=== PATIENT | female | born 1975 | race Caucasian/White ===

== ENCOUNTER → 2017-07-09 08:27 | Outpatient (CLI) | payer BC, SELFPAY ==
[2017-07-09 10:23] LABS: Vitamin D,25 Hydroxy 37.6 ng/mL (29.95-100.01)
== END ==
PROVIDERS: Family Provider Family Medicine; PCP Family Medicine; Visit Provider Internal Medicine Endocrinology, Diabetes & Metabolism
DX: E55.9 Vitamin D deficiency, unspecified (principal)
CPT/HCPCS: 36415; 82306

== ENCOUNTER → 2017-09-08 08:14 | Outpatient (CLI) | payer BC, SELFPAY ==
[2017-09-08 10:38] LABS: ALB/GLOB Ratio 0.8 RATIO (0.9-2.4); AST(SGOT) 17 U/L (15-37); Alanine Aminotransfer ALT/SGPT 24 U/L (13-56); Albumin, Serum 3.3 g/dL (3.2-5.0); Alkaline Phosphatase 115 U/L (45-117); Anion Gap 8 (5-15); BUN 10 mg/dL (7-18); BUN/Creat Ratio 12.5 RATIO (10-20); Calcium,Total 8.7 mg/dL (8.5-10.1); Chloride 110 mmol/L (98-107); EST Glomerular Filtration Rate 84 mL/min (>60); Est Glom Filt Rate - Afr Amer 102 mL/min (>60); Globulin 4.1 g/dL (2.2-4.2); Glucose 122 mg/dL (74-106); Potassium 3.7 mmol/L (3.5-5.1); Protein, Total 7.4 g/dL (6.4-8.2); Sodium Level 141 mmol/L (136-145); Thyroid Stim Hormone (TSH) 1.37 uIU/mL (0.358-3.74)
== END ==
PROVIDERS: Family Provider Family Medicine; PCP Family Medicine; Visit Provider Internal Medicine Endocrinology, Diabetes & Metabolism
DX: E03.8 Other specified hypothyroidism (principal)
CPT/HCPCS: 36415; 80053; 84443

== ENCOUNTER → 2018-02-10 15:49 | Outpatient (CLI) | payer BC, SELFPAY ==
[2018-02-15 11:02] LABS: HPV Reflexed? NOT INDICATED
== END ==
PROVIDERS: Visit Provider Obstetrics & Gynecology
DX: Z12.4 Encounter for screening for malignant neoplasm of cervix (principal)
CPT/HCPCS: 88175; G0145

== ENCOUNTER → 2018-03-30 08:09 | Outpatient (CLI) | payer BC, SELFPAY ==
[2018-03-30 11:23] LABS: ALB/GLOB Ratio 0.8 RATIO (0.9-2.4); AST(SGOT) 18 U/L (15-37); Alanine Aminotransfer ALT/SGPT 32 U/L (13-56); Albumin, Serum 3.3 g/dL (3.2-5.0); Alkaline Phosphatase 114 U/L (45-117); Anion Gap 8 (5-15); BUN 11 mg/dL (7-18); BUN/Creat Ratio 14.1 RATIO (10-20); Calcium,Total 8.4 mg/dL (8.5-10.1); Chloride 108 mmol/L (98-107); Cholesterol 188 mg/dL (200); Creatinine, Serum 0.78 mg/dL (0.55-1.02); EST Glomerular Filtration Rate 86 mL/min (>60); Est Glom Filt Rate - Afr Amer 105 mL/min (>60); Globulin 4.1 g/dL (2.2-4.2); Glucose 85 mg/dL (74-106); High Density Lipoprotein 37 mg/dL; Potassium 3.7 mmol/L (3.5-5.1); Protein, Total 7.4 g/dL (6.4-8.2); Sodium Level 143 mmol/L (136-145); Thyroid Stim Hormone (TSH) 3.56 uIU/mL (0.358-3.74); Triglycerides 143 mg/dL; Very Low Density Lipoprotein 29 mg/dL (5-40)
--- OUTSIDE RECORDS SUMMARY | 2018-05-16 03:18 | XMS RPT_ITS ---
:1975 Author Organization [facility] Care Team Providers Name Role Phone Sushila Barajas Attending Unavailable Korableva, Sushila Referring Unavailable Ranney, Christopher Primary Care Unavailable Mya Jones Attending Unavailable Mya Jones Referring Unavailable Korableva, Sushila Attending Unavailable Ranney, Christopher Primary Care Unavailable Korableva, Sushila Attending Unavailable Korableva, Sushila Referring Unavailable Ranney, Christopher Primary Care Unavailable Mya Jones Attending Unavailable PROBLEMS PROBLEMS DATE TYPE CONDITION / CODE ATTENDING STATUS SOURCE 03/30/2018 Unknown E03.8 - Other Korableva, Active [place] specified [facility] hypothyroidism / Hospital E03.8(ICD-10) Repository 03/30/2018 Unknown E78.2 - Mixed Korableva, Active [place] hyperlipidemia / [facility] E78.2(ICD-10) Hospital Repository 02/15/2018 Unknown Z12.4 - Encounter Mya Jones Active [place] for screening for [facility] of cervix / Repository Z12.4(ICD-10) 07/09/2017 Unknown E55.9 - Vitamin D Korableva, Active [place] deficiency, [facility] unspecified / Hospital E55.9(ICD-10) Repository PROCEDURES PROCEDURES No Procedure Records FoundRESULTS RESULTS SCREENING MAMM (CAD), Observed: 04/27/2018 Status: F Source: MACHIAS BIL 8:10 AM REPOSITORY [facility] Imaging Services [address] [place] [address] SCREENING MAMM (CAD), BILAT MR#: [id number] Acct: [id number] Name: HUMPHREYMary GraceHALIE L Rep #: [id number] : 1975 F 42 From: Joe Dorsye MD PCP: Care Physician, No Primary Status: REG CLI Study: SCREENING MAMM (CAD), BILAT Date of Exam: 04/27/18 Exam# [id number] Ordering Dr: Mya Jones MD MAMMOGRAPHY - BILATERAL SCREENING REASON FOR EXAM: Female, 42 years old. Routine annual screening examination. PERTINENT HISTORY: Non-contributory. TECHNIQUE: Digital bilateral breast stephanie (3D mammographic acquisition) in the CC and MLO projections. 2-D mediolateral oblique (MLO) and craniocaudad (CC) views of both breasts were obtained. CAD: Full Field Digital Mammography with Computer Added Detection was performed. COMPARISON: Comparison is made with prior study dated March 02, 2017. FINDINGS: Breast Composition: The breasts are heterogeneously dense, which may obscure small masses. There are no dominant masses or suspicious calcifications. No other significant abnormalities are identified. There has been no significant change since the prior study. BI/SCREENING MAMM (CAD), BILAT IMPRESSION: Stable bilateral screening mammogram. Yearly follow-up mammogram recommended. (A) ASSESSMENT CATEGORY: BIRADS Category 1: Negative. A letter regarding these results will be sent to the patient by the facility within 30 days. Approximately 10% of breast cancers are not detected by mammography. A normal mammogram should not delay biopsy of a clinically suspicious abnormality. [id number] Electronically Signed: Joe Dorsey MD at 9:47 EST Tel [phone], Service support , CC: No Primary Care Physician; Mya Jones MD Sport Psychologist: Signed COMPREHENSIVE METABOLIC Collected: 03/30/2018 Status: F Source: MILLIE JADEN 8:16 AM REPOSITORY TYPE CODE TESTS RESULT OUT OF RANGE REFERENCE UNITS LAB L501.0100 74-106 mg/dL Normal GLU 85 Result Comment: Please note revised GLUCOSE reference range effective 2017. LAB L501.1000 7-18 mg/dL Normal BUN 11 LAB L501.1100 0.55-1.02 mg/dL Normal CREAT,SERUM 0.78 Result Comment: The validity of the calculated GFR AND GFRAA in patients over 70 years has not been determined. Clinical correlation is essential. LAB L501.1110 >60 mL/min Normal EST GFR 86 Result Comment: Non- GFR Calc LAB L501.1115 >60 mL/min Normal EST GFR - AA 105 Result Comment: GFR Calc LAB L501.1300 10-20 RATIO Normal BUN/CRE 14.1 LAB L501.1500 6.4-8.2 g/dL T Normal PROT 7.4 LAB L501.1800 3.2-5.0 g/dL Normal ALB 3.3 LAB L501.1950 2.2-4.2 g/dL Normal GLOB 4.1 LAB L501.2000 0.9-2.4 RATIO Low A/G 0.8 LAB L501.2200 8.5-10.1 mg/dL Low CA 8.4 LAB L501.4100 15-37 U/L Normal AST 18 LAB L501.4305 45-117 U/L Normal ALK P 114 LAB L501.4405 13-56 U/L Normal ALT 32 LAB L501.4600 0.20-1.00 mg/dL T Normal BILI 0.30 LAB L501.5300 136-145 mmol/L NA Normal 143 LAB L501.5600 3.5-5.1 mmol/L K Normal 3.7 LAB L501.5900 98-107 mmol/L High CL 108 LAB L501.6100 21.0-32.0 mmol/L Normal CO2 27.0 LAB L501.6200 5-15 Normal GAP 8 Performed By: #### L500.4050, L500.4100, L501.9520 #### [facility] [address] [place], [place], [id number] LIPID PROFILE Collected: 03/30/2018 Status: F Source: MACHIAS 8:16 AM REPOSITORY TYPE CODE TESTS RESULT OUT OF RANGE REFERENCE UNITS LAB L501.4900 200 mg/dL Normal CHOL 188 Result Comment: <200 mg/dL Desirable 200-240 mg/dL Borderline >240 mg/dL High Risk LAB L501.5000 mg/dL Normal TRIG 143 Result Comment: The drugs N-Acetylcysteine and Metamizole may falsely depress this assay. Serum Triglycerides Reference Interval Normal <150 mg/dL Borderline high 150 - 199 mg/dL High 200 - 499 mg/dL Very High > or = 500 mg/dL LAB L501.6400 mg/dL Low HDL 37 Result Comment: The drugs N-Acetylcysteine and Metamizole may falsely depress this assay. Reference Range HDL <40 mg/dL Low HDL Cholesterol HDL >or= 60 mg/dL High HDL Cholesterol LAB L501.6500 0-130 mg/dL Normal LDL 122 LAB L501.6600 5-40 mg/dL Normal VLDL 29 Performed By: #### L500.4050, L500.4100, L501.9520 #### [facility] [address] [place], [address] THYROID STIM HORMONE Collected: 03/30/2018 Status: F Source: MILLIE (TSH) 8:16 AM REPOSITORY TYPE CODE TESTS RESULT OUT OF RANGE REFERENCE UNITS LAB L501.9520 0.358-3.74 uIU/mL Normal TSH 3.56 Performed By: #### L500.4050, L500.4100, L501.9520 #### [facility] [address] [facility] [place], [address] PAP I-G W/RFX HRHPV Collected: 02/10/2018 Status: F Source: MILLIE 11:30 AM REPOSITORY Order Comment: CYTOLOGY INFORMATION: - CLINICAL INFORMATION: - DATE LMP/MENOPAUSE: 01/18/18 LMP - COLLECTION VIAL: Thin Prep Vial - DIALYSIS CHIEF EQUIPMENT TECHNICIAN SOURCE: CERVICAL/ENDOCERVICAL - COLLECTION TECHNIQUE: BRUSH/SPATULA Specimen Comment: [id number] Specimen Comment: Source.............Cervix;Endocervix Specimen Comment: LMP / Prev Treat...[id number] Specimen Comment: No. of containers..01 ThinPrep Vial TYPE CODE TESTS RESULT OUT OF RANGE REFERENCE UNITS LAB L7400.0800 . Normal DIAGN Comment Result Comment: NEGATIVE FOR INTRAEPITHELIAL LESION AND MALIGNANCY. LAB L7400.0900 . Normal ADEQ Comment Result Comment: Satisfactory for evaluation. Endocervical and/or squamous metaplastic cells (endocervical component) are present. LAB L7400.1400 . Normal PERFORM Comment Result Comment: Jyothi Amador, Musical Instrument Mechanic (ASCP) LAB L7400.2575 . Normal TEST METHOD Comment Result Comment: This liquid based ThinPrep(R) pap test was screened with the use of an image guided system. LAB L7400.2600 . Normal . COMM LAB L7400.2700 . Normal PAPSMR Comment Result Comment: The Pap smear is a screening test designed to aid in the detection of premalignant and malignant conditions of the uterine cervix. It is not a diagnostic procedure and should not be used as the sole means of detecting cervical cancer. Both false-positive and false-negative reports do occur. LAB L7400.2800 . Normal HPV RFLX Comment Result Comment: The HPV DNA reflex criteria were not met with this specimen result therefore, no HPV testing was performed. Performed at: - [facility] [place], [place] [id number] [employer]: Ashley Ashraf MD, Phone: [phone] Performed By: #### L7400.0350 #### [facility] (refer to report for specific site) refer to report for address and phone number COMPREHENSIVE METABOLIC Collected: 09/08/2017 Status: F Source: MILLIE STANLEY 8:19 AM REPOSITORY TYPE CODE TESTS RESULT OUT OF RANGE REFERENCE UNITS LAB L501.0100 74-106 mg/dL High GLU 122 Result Comment: Fasting Glucose result from 100 to 125 mg/dL suggests IMPAIRED HOMEOSTASIS per A.D.A. criteria. Please note revised GLUCOSE reference range effective 2017. LAB L501.1000 7-18 mg/dL Normal BUN 10 LAB L501.1100 0.55-1.02 mg/dL Normal CREAT,SERUM 0.80 Result Comment: The validity of the calculated GFR AND GFRAA in patients over 70 years has not been determined. Clinical correlation is essential. LAB L501.1110 >60 mL/min Normal EST GFR 84 Result Comment: Non- GFR Calc LAB L501.1115 >60 mL/min Normal EST GFR - AA 102 Result Comment: GFR Calc LAB L501.1300 10-20 RATIO Normal BUN/CRE 12.5 LAB L501.1500 6.4-8.2 g/dL T Normal PROT 7.4 LAB L501.1800 3.2-5.0 g/dL Normal ALB 3.3 LAB L501.1950 2.2-4.2 g/dL Normal GLOB 4.1 LAB L501.2000 0.9-2.4 RATIO Low A/G 0.8 LAB L501.2200 8.5-10.1 mg/dL CA Normal 8.7 LAB L501.4100 15-37 U/L Normal AST 17 LAB L501.4305 45-117 U/L Normal ALK P 115 LAB L501.4405 13-56 U/L Normal ALT 24 LAB L501.4600 0.20-1.00 mg/dL T Normal BILI 0.50 LAB L501.5300 136-145 mmol/L NA Normal 141 LAB L501.5600 3.5-5.1 mmol/L K Normal 3.7 LAB L501.5900 98-107 mmol/L High CL 110 LAB L501.6100 21.0-32.0 mmol/L Normal CO2 23.0 LAB L501.6200 5-15 Normal GAP 8 Performed By: #### L500.4050, L501.9520 #### [facility] [address] [place], [place], [address] THYROID STIM HORMONE Collected: 09/08/2017 Status: F Source: MILLIE (TSH) 8:19 AM REPOSITORY TYPE CODE TESTS RESULT OUT OF RANGE REFERENCE UNITS LAB L501.9520 0.358-3.74 uIU/mL Normal TSH 1.37 Performed By: #### L500.4050, L501.9520 #### [facility] [address] [place], [place], [address] VITAMIN D,25 HYDROXY Collected: 07/09/2017 Status: F Source: MILLIE 8:33 AM REPOSITORY TYPE CODE TESTS RESULT OUT OF RANGE REFERENCE UNITS LAB L506.1000 29.95-100.01 ng/mL Normal Vitamin D 37.6 25-OH Result Comment: Vitamin D 25(OH) Status Range Deficiency <20 ng/mL (50nmol/L) Insuffciency 20 - 30 ng/mL (50 - 75 nmol/L) Sufficiency 30 - 100 ng/mL (75 - 250 nmol/L) Toxicity >100 ng/mL (>250 nmol/L) Performed By: #### L506.1000 #### [facility] [address] [place], [place], [address] ALLERGIES ALLERGIES DATE TYPE / CODE NAME / CODE REACTION SEVERITY SOURCE 06/25/2015 Drug nickel/F0060 Unknown Unknown [place] [facility] Allergy/4160 08845([facility] [address](SNOMED ) Repository CT) ENCOUNTERS ENCOUNTERS ADMIT/DISCHARGE ACCOUNT ADMITTING ENCOUNTER LOCATION SOURCE NUMBER CLASS 04/27/2018 [id number] Ambulatory [place] 7 [facility] ing:OPBI Repository 03/30/2018 [id number] Ambulatory [place] 7 [facility] ing:MTLAB Repository 02/10/2018 [id number] Ambulatory [place] 9 [facility] ing:LABSPEC Repository 09/08/2017 [id number] Ambulatory [place]ie 5 [facility] ing:MTLAB Repository 07/09/2017 [id number] Ambulatory [place]ie 6 [facility] ing:MTLAB Repository PAYERS PAYERS ENCOUNTER GUARANTOR PAYER SUBSCRIBER SOURCE 04/27/2018 HALIE L Primary HALIE L [place] [id number] HEYL Insurance:ANTHEMPolic [place]: [place] Number: [id number] Hospital [address]Isp: 330 [id number] Repository [phone] () Date:[id number] [address] [place] [address] 24[address]LC: 04/27/2018 Secondary NOT GIVENUNK [place] Insurance:SELF PAY [facility] Number: Effective Repository Date:2018-02-11 03/30/2018 HALIE L Primary HALIE L [place] [id number] HEYL Insurance:ANTHEMPolic CARMONYDOB: [place] Number: [id number] Hospital [id number]: 330 [id number] Repository [phone] () Date:[id number] [address] [place] [address]94[address]SK: 03/30/2018 Secondary NOT GIVENUNK [place] Insurance:SELF PAY [facility] Number: Effective Repository Date:2018-03-30 02/10/2018 HALIE L Primary HALIE L [place] [id number] HEYL Insurance:ANTHEMPolic CARMONYDOB: [facility] romain [place] y Number: [id number] Hospital [address]Frb: (330) [id number] Repository [phone] () Date:[id number] [address] [address]WP: 02/10/2018 Secondary NOT GIVENUNK [place] Insurance:SELF PAY [facility] Number: Effective Repository Date:2018-02-10 09/08/2017 Halie L Primary Halie L Millie [id number] HEYL Insurance:ANTHEMPolic CarmonyDOB: [facility] romain [place] y Number: [id number] Hospital [address]Ptf: [id number] Repository [phone] Date:[id number] [address] () [address], [place] [address]SQ: 09/08/2017 Secondary NOT GIVENUNK [place] Insurance:SELF PAY [facility] Number: Effective Repository Date:2017-09-08 07/09/2017 Halie L Primary Halie L [place]ie [id number] HEYL Insurance:ANTHEMPolic CarmonyDOB: [facility] romain [place] y Number: [id number] Hospital [address]Bzj: [id number] Repository [phone] Date:[id number] [address] [address], [place] [address]YZ: 07/09/2017 Secondary NOT GIVENUNK [place] Insurance:SELF PAY [facility] Number: Effective Repository Date:2017-07-09
== END ==
PROVIDERS: Family Provider Family Medicine; PCP Family Medicine; Referring Provider Internal Medicine Endocrinology, Diabetes & Metabolism; Visit Provider Internal Medicine Endocrinology, Diabetes & Metabolism
DX: E03.8 Other specified hypothyroidism (principal); E78.2 Mixed hyperlipidemia
CPT/HCPCS: 36415; 80053; 80061; 84443

== ENCOUNTER → 2018-04-27 08:04 | Outpatient (CLI) | payer BC, SELFPAY ==
--- NOTE | 2018-04-27 08:09 | BI_ITS ---
MAMMOGRAPHY - BILATERAL SCREENING REASON FOR EXAM: Female, 42 years old. Routine annual screening examination. PERTINENT HISTORY: Non-contributory. TECHNIQUE: Digital bilateral breast stephanie (3D mammographic acquisition) in the CC and MLO projections. 2-D mediolateral oblique (MLO) and craniocaudad (CC) views of both breasts were obtained. CAD: Full Field Digital Mammography with Computer Added Detection was performed. COMPARISON: Comparison is made with prior study dated March 02, 2017. FINDINGS: Breast Composition: The breasts are heterogeneously dense, which may obscure small masses. There are no dominant masses or suspicious calcifications. No other significant abnormalities are identified. There has been no significant change since the prior study. BI/SCREENING MAMM (CAD), BILAT IMPRESSION: Stable bilateral screening mammogram. Yearly follow-up mammogram recommended. (A) ASSESSMENT CATEGORY: BIRADS Category 1: Negative. A letter regarding these results will be sent to the patient by the facility within 30 days. Approximately 10% of breast cancers are not detected by mammography. A normal mammogram should not delay biopsy of a clinically suspicious abnormality. [id number] Electronically Signed: Joe Dorsey MD at 9:47 EST Tel [phone], Service support ,
== END ==
PROVIDERS: Referring Provider Obstetrics & Gynecology; Visit Provider Obstetrics & Gynecology
DX: Z12.31 Encounter for screening mammogram for malignant neoplasm of breast (principal)
CPT/HCPCS: 77063; 77067

== ENCOUNTER → 2018-07-12 16:09 | Outpatient (CLI) | payer BC, SELFPAY ==
[2018-07-12 18:20] LABS: Anion Gap 6 (5-15); BUN 11 mg/dL (7-18); BUN/Creat Ratio 12.8 RATIO (10-20); Calcium,Total 8.6 mg/dL (8.5-10.1); Chloride 107 mmol/L (98-107); Creatinine, Serum 0.86 mg/dL (0.55-1.02); EST Glomerular Filtration Rate 77 mL/min (>60); Est Glom Filt Rate - Afr Amer 93 mL/min (>60); Glucose 102 mg/dL (74-106); Potassium 3.5 mmol/L (3.5-5.1); Sodium Level 140 mmol/L (136-145); Thyroid Stim Hormone (TSH) 3.62 uIU/mL (0.358-3.74)
[2018-07-14 16:09] LABS: Thyroid Peroxidase AB 19 IU/mL (0-34)
[2018-07-15 15:11] LABS: Thyroglobulin Antibody < 1.0 IU/mL (0.0-0.9)
== END ==
PROVIDERS: Family Provider Family Medicine; PCP Family Medicine; Referring Provider Internal Medicine Endocrinology, Diabetes & Metabolism; Visit Provider Internal Medicine Endocrinology, Diabetes & Metabolism
DX: E03.8 Other specified hypothyroidism (principal)
CPT/HCPCS: 36415; 80048; 84443; 86376; 86800

== ENCOUNTER → 2018-09-20 07:20 | Outpatient (CLI) | payer BC, SELFPAY ==
[2018-09-20 10:24] LABS: Thyroid Stim Hormone (TSH) 2.87 uIU/mL (0.358-3.74)
== END ==
PROVIDERS: Family Provider Family Medicine; PCP Family Medicine; Referring Provider Internal Medicine Endocrinology, Diabetes & Metabolism; Visit Provider Internal Medicine Endocrinology, Diabetes & Metabolism
DX: E03.8 Other specified hypothyroidism (principal)
CPT/HCPCS: 36415; 84443

== ENCOUNTER → 2019-01-11 07:57 | Outpatient (CLI) | payer BC, SELFPAY ==
[2019-01-11 10:28] LABS: ALB/GLOB Ratio 0.8 RATIO (0.9-2.4); AST(SGOT) 18 U/L (15-37); Alanine Aminotransfer ALT/SGPT 29 U/L (13-56); Albumin, Serum 3.2 g/dL (3.2-5.0); Alkaline Phosphatase 124 U/L (45-117); Anion Gap 4 (5-15); BUN 10 mg/dL (7-18); BUN/Creat Ratio 12.9 RATIO (10-20); Calcium,Total 8.9 mg/dL (8.5-10.1); Chloride 107 mmol/L (98-107); Creatinine, Serum 0.78 mg/dL (0.55-1.02); EST Glomerular Filtration Rate 86 mL/min (>60); Est Glom Filt Rate - Afr Amer 104 mL/min (>60); Glucose 107 mg/dL (74-106); Potassium 3.7 mmol/L (3.5-5.1); Protein, Total 7.2 g/dL (6.4-8.2); Sodium Level 139 mmol/L (136-145); Thyroid Stim Hormone (TSH) 3.33 uIU/mL (0.358-3.74)
== END ==
PROVIDERS: Family Provider Family Medicine; PCP Family Medicine; Referring Provider Internal Medicine Endocrinology, Diabetes & Metabolism; Visit Provider Internal Medicine Endocrinology, Diabetes & Metabolism
DX: E03.8 Other specified hypothyroidism (principal)
CPT/HCPCS: 36415; 80053; 84443

== ENCOUNTER → 2019-03-10 07:54 | Outpatient (CLI) | payer BC, SELFPAY ==
[2019-03-10 10:40] LABS: Thyroid Stim Hormone (TSH) 2.83 uIU/mL (0.358-3.74)
== END ==
PROVIDERS: Family Provider Family Medicine; PCP Family Medicine; Referring Provider Internal Medicine Endocrinology, Diabetes & Metabolism; Visit Provider Internal Medicine Endocrinology, Diabetes & Metabolism
DX: E03.8 Other specified hypothyroidism (principal)
CPT/HCPCS: 36415; 84443

== ENCOUNTER → 2019-05-01 07:39 | Outpatient (CLI) | payer BC, SELFPAY ==
--- NOTE | 2019-05-01 07:41 | BI_ITS ---
MAMMOGRAPHY - BILATERAL SCREENING REASON FOR EXAM: Female, 43 years old. Routine annual screening examination. PERTINENT HISTORY: Non-contributory. TECHNIQUE: Digital bilateral breast pablo (3D mammographic acquisition) in the CC and MLO projections. 2-D mediolateral oblique (MLO) and craniocaudad (CC) views of both breasts were obtained. CAD: Full Field Digital Mammography with Computer Added Detection was performed. COMPARISON: Comparison is made with prior study dated April 27, 2018 and March 02, 2017. FINDINGS: Breast Composition: The breasts are heterogeneously dense, which may obscure small masses. There are no dominant masses or suspicious calcifications. No other significant abnormalities are identified. There has been no significant change since the prior study. BI/SCREEN MAMM (CAD) W/PABLO BILAT IMPRESSION: Stable bilateral screening mammogram. Yearly follow-up mammogram recommended. (A) ASSESSMENT CATEGORY: BIRADS Category 1: Negative. A letter regarding these results will be sent to the patient by the facility within 30 days. Approximately 10% of breast cancers are not detected by mammography. A normal mammogram should not delay biopsy of a clinically suspicious abnormality. [id number] Electronically Signed: Joe Dorsey, at 9:55 EST , Service support ,
== END ==
PROVIDERS: Family Provider Family Medicine; PCP Family Medicine; Referring Provider Obstetrics & Gynecology; Visit Provider Obstetrics & Gynecology
DX: Z12.31 Encounter for screening mammogram for malignant neoplasm of breast (principal)
CPT/HCPCS: 77063; 77067

== ENCOUNTER → 2019-07-12 12:21 | Outpatient (CLI) | payer BC, SELFPAY ==
[2019-07-12 15:53] LABS: ALB/GLOB Ratio 0.9 RATIO (0.9-2.4); AST(SGOT) 14 U/L (15-37); Alanine Aminotransfer ALT/SGPT 22 U/L (13-56); Albumin, Serum 3.5 g/dL (3.2-5.0); Alkaline Phosphatase 113 U/L (45-117); Anion Gap 7 (5-15); BUN 11 mg/dL (7-18); BUN/Creat Ratio 12.5 RATIO (10-20); Chloride 108 mmol/L (98-107); Creatinine, Serum 0.88 mg/dL (0.55-1.02); EST Glomerular Filtration Rate 75 mL/min (>60); Est Glom Filt Rate - Afr Amer 90 mL/min (>60); Globulin 3.9 g/dL (2.2-4.2); Glucose 86 mg/dL (74-106); Potassium 3.5 mmol/L (3.5-5.1); Protein, Total 7.4 g/dL (6.4-8.2); Sodium Level 142 mmol/L (136-145); Thyroid Stim Hormone (TSH) 2.84 uIU/mL (0.358-3.74)
== END ==
PROVIDERS: PCP Family Medicine; Referring Provider Internal Medicine Endocrinology, Diabetes & Metabolism; Visit Provider Internal Medicine Endocrinology, Diabetes & Metabolism
DX: E03.8 Other specified hypothyroidism (principal)
CPT/HCPCS: 36415; 80053; 84443

== ENCOUNTER → 2020-01-22 10:25 | Outpatient (CLI) | payer BC, SELFPAY ==
[2020-01-22 12:53] LABS: ALB/GLOB Ratio 0.9 RATIO (0.9-2.4); AST(SGOT) 17 U/L (15-37); Alanine Aminotransfer ALT/SGPT 26 U/L (13-56); Albumin, Serum 3.5 g/dL (3.2-5.0); Alkaline Phosphatase 110 U/L (45-117); Anion Gap 7 (5-15); BUN 11 mg/dL (7-18); BUN/Creat Ratio 15.2 RATIO (10-20); Calcium,Total 8.6 mg/dL (8.5-10.1); Chloride 108 mmol/L (98-107); Creatinine, Serum 0.72 mg/dL (0.55-1.02); EST Glomerular Filtration Rate 93 mL/min (>60); Est Glom Filt Rate - Afr Amer 113 mL/min (>60); Globulin 3.8 g/dL (2.2-4.2); Glucose 92 mg/dL (74-106); Potassium 3.5 mmol/L (3.5-5.1); Protein, Total 7.3 g/dL (6.4-8.2); Sodium Level 140 mmol/L (136-145)
[2020-01-24 08:25] LABS: Vitamin D,25 Hydroxy 46.7 ng/mL
== END ==
PROVIDERS: PCP Family Medicine; Referring Provider Internal Medicine Endocrinology, Diabetes & Metabolism; Visit Provider Internal Medicine Endocrinology, Diabetes & Metabolism
DX: E03.8 Other specified hypothyroidism (principal); E55.9 Vitamin D deficiency, unspecified
CPT/HCPCS: 36415; 80053; 82306; 84443

== ENCOUNTER → 2020-05-20 13:04 | Outpatient (CLI) | payer BC, SELFPAY ==
[2020-05-22 09:41] LABS: HPV APTIMA, High Risk Negative (Negative)
[2020-05-22 09:42] LABS: HPV Reflexed? YES, CHARGE PATIENT
== END ==
PROVIDERS: PCP Family Medicine; Visit Provider Student in an Organized Health Care Education/Training Program
DX: Z12.4 Encounter for screening for malignant neoplasm of cervix (principal)
CPT/HCPCS: 87624; 88175; G0145

== ENCOUNTER → 2020-05-30 13:50 | Outpatient (CLI) | payer BC, SELFPAY ==
--- NOTE | 2020-05-30 13:52 | BI_ITS ---
MAMMOGRAPHY - BILATERAL SCREENING REASON FOR EXAM: Female, 44 years old. Routine annual screening examination. PERTINENT HISTORY: Non-contributory. TECHNIQUE: Digital bilateral breast pablo (3D mammographic acquisition) in the CC and MLO projections. 2-D mediolateral oblique (MLO) and craniocaudad (CC) views of both breasts were obtained. CAD: Full Field Digital Mammography with Computer Added Detection was performed. COMPARISON: Comparison is made with prior examination dated 05/01/2019 and 04/27/2018. FINDINGS: Breast Composition: The breasts are heterogeneously dense, which may obscure small masses. There are no dominant masses or suspicious calcifications. No other significant abnormalities are identified. There has been no significant change since the prior study. BI/SCRN MAMM (CAD)W/PABLO BILAT IMPRESSION: Stable bilateral screening mammogram. Yearly follow-up mammogram recommended. (A) ASSESSMENT CATEGORY: BIRADS Category 1: Negative. A letter regarding these results will be sent to the patient by the facility within 30 days. Approximately 10% of breast cancers are not detected by mammography. A normal mammogram should not delay biopsy of a clinically suspicious abnormality. [id number] Electronically Signed: Joe Dorsey MD at 9:50 EST , Service support ,
== END ==
PROVIDERS: PCP Family Medicine; Referring Provider Student in an Organized Health Care Education/Training Program; Visit Provider Student in an Organized Health Care Education/Training Program
DX: Z12.31 Encounter for screening mammogram for malignant neoplasm of breast (principal)
CPT/HCPCS: 77063; 77067

== ENCOUNTER → 2020-07-23 08:59 | Outpatient (CLI) | payer BC, SELFPAY ==
[2020-07-23 10:51] LABS: ALB/GLOB Ratio 0.9 RATIO (0.9-2.4); AST(SGOT) 12 U/L (15-37); Alanine Aminotransfer ALT/SGPT 22 U/L (13-56); Albumin, Serum 3.5 g/dL (3.2-5.0); Alkaline Phosphatase 121 U/L (45-117); Anion Gap 3 (5-15); BUN 9 mg/dL (7-18); BUN/Creat Ratio 11.8 RATIO (10-20); Calcium,Total 8.9 mg/dL (8.5-10.1); Chloride 109 mmol/L (98-107); Cholesterol 213 mg/dL (200); Creatinine, Serum 0.76 mg/dL (0.55-1.02); EST Glomerular Filtration Rate 87 mL/min (>60); Est Glom Filt Rate - Afr Amer 106 mL/min (>60); Globulin 3.9 g/dL (2.2-4.2); Glucose 97 mg/dL (74-106); High Density Lipoprotein 41 mg/dL; Potassium 3.7 mmol/L (3.5-5.1); Protein, Total 7.4 g/dL (6.4-8.2); Sodium Level 139 mmol/L (136-145); Triglycerides 134 mg/dL; Very Low Density Lipoprotein 27 mg/dL (5-40)
== END ==
PROVIDERS: PCP Family Medicine; Referring Provider Internal Medicine Endocrinology, Diabetes & Metabolism; Visit Provider Internal Medicine Endocrinology, Diabetes & Metabolism
DX: E03.8 Other specified hypothyroidism (principal); E78.2 Mixed hyperlipidemia
CPT/HCPCS: 36415; 80053; 80061

== ENCOUNTER → 2020-11-05 16:49 | Outpatient (CLI) | payer OTHER, SELFPAY | PROVIDERS: PCP Family Medicine; Referring Provider Nurse Practitioner Family; Visit Provider Nurse Practitioner Family | DX: Z20.822 Contact with and (suspected) exposure to COVID-19 (principal) | CPT/HCPCS: 36415; 86769 ==

== ENCOUNTER → 2020-12-24 09:46 | Outpatient (CLI) | payer OTHER, SELFPAY ==
--- NOTE | 2020-12-24 10:03 | VDLE_ITS ---
Reason For Study: Swelling, Pain RIGHT LEFT CFV is compressible, spontaneous, phasic, CFV is compressible, spontaneous, phasic, competent and demonstrates normal competent, and demonstrates normal augmentation. augmentation. FV is compressible, spontaneous, phasic, FV is compressible, spontaneous, phasic, competent and demonstrates normal competent and demonstrates normal augmentation. augmentation. POP V is compressible, spontaneous, phasic, POP V is compressible, spontaneous, phasic, competent and demonstrates normal competent and demonstrates normal augmentation. augmentation. T/P Trunk is compressible. T/P Trunk is compressible. PTV is compressible. PTV is compressible. RT PerV is compressible. LT PerV is compressible. SFJ is competent and measures 0.69 x 0.78 cm. SFJ is competent and measures 0.51 x 0.51 cm. GSV proximal thigh measures 0.36 x 0.36 cm. GSV proximal thigh measures 0.27 x 0.27 cm. GSV above knee is INCOMPETENT for greater GSV above knee is INCOMPETENT for greater than 0.5 seconds. than 0.5 seconds. GSV at knee measures 0.23 x 0.22 cm. GSV at knee measures 0.13 x 0.12 cm. GSV is competent throughout. GSV below knee is competent. ASV at junction is INCOMPETENT for greater SSV proximal calf is competent and measures than 0.5 seconds and measures 0.52 x 0.52 cm. 0.15 x 0.16 cm. INCOMPETENT dish person noted 22 cm above medial malleolus. Unable to assess right SSV due to vessel size. Procedure This is a venous duplex using B-mode, color flow and spectral Doppler. Exam performed in department. VL/Venous Duplex US - Musa Extrem Interpretation Summary Bilateral no DVT or SVT. Right GSV measuring 6.9 and 3.6 with reflux noted in t he thigh. ASV measuring 5.2 mm with reflux from the junction down through branches. Left GSV measuring 5.1 and 2.7 with reflux noted in the thigh. Ordering Physician: Henry Miller Referring Physician: Siva Medellin MD Performed By: Dania Allison RVT
== END ==
PROVIDERS: PCP Family Medicine; Referring Provider Surgery Vascular Surgery; Visit Provider Surgery Vascular Surgery
DX: M79.89 Other specified soft tissue disorders (principal); M79.606 Pain in leg, unspecified; I83.893 Varicose veins of bilateral lower extremities with other complications; N20.0 Calculus of kidney; G47.30 Sleep apnea, unspecified; E07.9 Disorder of thyroid, unspecified; F32.9 Major depressive disorder, single episode, unspecified; K59.9 Functional intestinal disorder, unspecified
CPT/HCPCS: 93970

== ENCOUNTER → 2021-01-20 11:20 | Outpatient (CLI) | payer OTHER, SELFPAY ==
[2021-01-20 15:38] LABS: Vitamin D,25 Hydroxy 57.4 ng/mL
[2021-01-20 15:52] LABS: ALB/GLOB Ratio 0.9 RATIO (0.9-2.4); AST(SGOT) 11 U/L (15-37); Alanine Aminotransfer ALT/SGPT 21 U/L (13-56); Albumin, Serum 3.6 g/dL (3.2-5.0); Alkaline Phosphatase 112 U/L (45-117); Anion Gap 7 (5-15); BUN 13 mg/dL (7-18); BUN/Creat Ratio 17.8 RATIO (10-20); Calcium,Total 9.3 mg/dL (8.5-10.1); Chloride 108 mmol/L (98-107); Creatinine, Serum 0.73 mg/dL (0.55-1.02); EST Glomerular Filtration Rate 92 mL/min (>60); Est Glom Filt Rate - Afr Amer 111 mL/min (>60); Globulin 4.1 g/dL (2.2-4.2); Glucose 85 mg/dL (74-106); Potassium 3.5 mmol/L (3.5-5.1); Protein, Total 7.7 g/dL (6.4-8.2); Sodium Level 141 mmol/L (136-145); Thyroid Stim Hormone (TSH) 2.15 uIU/mL (0.358-3.74)
== END ==
PROVIDERS: PCP Family Medicine
DX: E03.8 Other specified hypothyroidism (principal); E55.9 Vitamin D deficiency, unspecified
CPT/HCPCS: 36415; 80053; 82306; 84443

== ENCOUNTER → 2021-07-24 | Outpatient (CLI) | payer BC, SELFPAY ==
[2021-07-24 10:15] LABS: Absolute Lymphocyte Count 1.72 X10^3/uL (0.83-4.51); Basophil# 0.02 X10^3/uL; Basophil% 0.3 % (0-1); Eosinophil# 0.14 X10^3/uL; Eosinophils% 1.9 % (0-5); Hematocrit 41.5 % (37-47); Hemoglobin 13.6 g/dL (12.0-15.0); Lymphocyte # 1.72 X10^3/ul (0.83-4.51); Lymphocyte % 23.2 % (19-41); Mean Corp Hgb Conc 32.8 g/dL (32-36); Mean Corpuscular Hgb 29.7 pg (27.0-32.0); Mean Corpuscular Volume 90.6 fL (81-99); Mean Platelet Vol. 10.4 fl (6.2-12.0); Monocyte% 6.8 % (0-10); NRBC Flagged by Analyzer 0 % (0-5); Neutrophil % 67.5 % (47-70); Platelet Count 313 K/mm3 (150-450); RBC Distribution Width CV 12.6 % (11.6-14.6); RBC Distribution Width SD 41.7 fl (35.1-43.9); Red Blood Count 4.58 M/mm3 (4.2-5.4); White Blood Count 7.4 K/mm3 (4.4-11.0)
[2021-07-24 11:10] LABS: ALB/GLOB Ratio 0.9 RATIO (0.9-2.4); AST(SGOT) 15 U/L (15-37); Alanine Aminotransfer ALT/SGPT 20 U/L (13-56); Albumin, Serum 3.6 g/dL (3.2-5.0); Alkaline Phosphatase 100 U/L (45-117); Anion Gap 4 (5-15); BUN 12 mg/dL (7-18); BUN/Creat Ratio 14.6 RATIO (10-20); Calcium,Total 8.7 mg/dL (8.5-10.1); Chloride 110 mmol/L (98-107); Cholesterol 193 mg/dL (200); Creatinine, Serum 0.82 mg/dL (0.55-1.02); EST Glomerular Filtration Rate 80 mL/min (>60); Est Glom Filt Rate - Afr Amer 97 mL/min (>60); Ferritin 39 ng/mL (8-252); Globulin 3.9 g/dL (2.2-4.2); Glucose 106 mg/dL (74-106); High Density Lipoprotein 39 mg/dL; Iron 88 ug/dL (50-170); Potassium 3.9 mmol/L (3.5-5.1); Protein, Total 7.5 g/dL (6.4-8.2); Sodium Level 138 mmol/L (136-145); Thyroid Stim Hormone (TSH) 2.54 uIU/mL (0.358-3.74); Triglycerides 82 mg/dL; Very Low Density Lipoprotein 16 mg/dL (5-40)
[2021-07-24 12:28] LABS: Vitamin B12 213 pg/mL (211-911)
== END | disposition home or self-care (01) ==
PROVIDERS: PCP Family Medicine
DX: E03.8 Other specified hypothyroidism (principal); E78.2 Mixed hyperlipidemia; R53.83 Other fatigue; L68.0 Hirsutism; D50.9 Iron deficiency anemia, unspecified; D51.3 Other dietary vitamin B12 deficiency anemia
CPT/HCPCS: 36415; 80053; 80061; 82607; 82728; 83540; 84402; 84403; 84443; 85025

== ENCOUNTER → 2021-09-02 | Outpatient (CLI) | payer BC, SELFPAY ==
[2021-09-02 15:37] LABS: Ferritin 28 ng/mL (8-252); Iron 88 ug/dL (50-170); Iron Binding Capacity,Total 369 ug/dL (250-450); PERCENT IRON SATURATION 23.8 % (15.0-55.0); Vitamin D,25 Hydroxy 108.5 ng/mL
[2021-09-06 12:08] LABS: Testosterone, Free 0.46 ng/dL (0.10-0.85); Testosterone, Total 32 ng/dL (4-50)
[2021-09-06 12:37] LABS: Testosterone, % Free 1.44 % (0.50-2.80)
== END | disposition home or self-care (01) ==
LOC: MTLAB 12:39
PROVIDERS: PCP Family Medicine
DX: L68.0 Hirsutism (principal); E61.1 Iron deficiency; E55.9 Vitamin D deficiency, unspecified
CPT/HCPCS: 36415; 82306; 82728; 83540; 83550; 84402; 84403

== ENCOUNTER → 2021-10-29 | Outpatient (CLI) | payer BC, SELFPAY ==
[2021-10-29 15:57] LABS: Anion Gap 5 (5-15); BUN 11 mg/dL (7-18); BUN/Creat Ratio 14.5 RATIO (10-20); Calcium,Total 9.3 mg/dL (8.5-10.1); Chloride 109 mmol/L (98-107); Creatinine, Serum 0.76 mg/dL (0.55-1.02); EST Glomerular Filtration Rate 88 mL/min (>60); Est Glom Filt Rate - Afr Amer 106 mL/min (>60); Glucose 80 mg/dL (74-106); Potassium 3.4 mmol/L (3.5-5.1); Sodium Level 141 mmol/L (136-145); T4 Free Direct 0.94 ng/dL (0.76-1.46); Thyroid Stim Hormone (TSH) 2.38 uIU/mL (0.358-3.74)
[2021-10-29 15:59] LABS: Vitamin B12 472 pg/mL (211-911)
== END | disposition home or self-care (01) ==
PROVIDERS: PCP Family Medicine
DX: E03.8 Other specified hypothyroidism (principal); D51.3 Other dietary vitamin B12 deficiency anemia
CPT/HCPCS: 36415; 80048; 82607; 84439; 84443

== ENCOUNTER → 2022-04-09 | Outpatient (CLI) | payer BC, SELFPAY ==
[2022-04-09 10:53] LABS: Anion Gap 6 (5-15); BUN 11 mg/dL (7-18); BUN/Creat Ratio 13.9 RATIO (10-20); Calcium,Total 9.4 mg/dL (8.5-10.1); Chloride 109 mmol/L (98-107); Creatinine, Serum 0.79 mg/dL (0.55-1.02); EST Glomerular Filtration Rate 83 mL/min (>60); Est Glom Filt Rate - Afr Amer 100 mL/min (>60); Glucose 103 mg/dL (74-106); Potassium 3.9 mmol/L (3.5-5.1); Sodium Level 141 mmol/L (136-145)
== END | disposition home or self-care (01) ==
LOC: MTLAB 08:15
PROVIDERS: PCP Family Medicine
DX: E03.8 Other specified hypothyroidism (principal)
CPT/HCPCS: 36415; 80048

== ENCOUNTER → 2022-10-07 | Outpatient (CLI) | payer BC, SELFPAY ==
--- NOTE | 2022-10-07 16:00 | RAD_ITS ---
EXAM: XR RIGHT KNEE COMPLETE, 4 OR MORE VIEWS CLINICAL INDICATION: PAIN TECHNIQUE: 4 views COMPARISON: No relevant prior studies available. FINDINGS: BONES/JOINTS: Flabella posterior to the knee. Mild narrowing of the lateral joint compartment and mild periarticular osteophytes in the medial joint compartment. No acute fracture. No subluxation. Normal alignment. No sclerotic or destructive changes observed. No joint effusion. SOFT TISSUES: Unremarkable. No soft tissue swelling or gas. No radiopaque foreign body. RAD/Knee 4 or More Views IMPRESSION: Minimal degenerative changes. Electronically Signed: Ashanti To MD at 7:56 EDT ,
== END | disposition home or self-care (01) ==
PROVIDERS: PCP Family Medicine; Referring Provider Family Medicine; Visit Provider Family Medicine
DX: M25.569 Pain in unspecified knee (principal)
CPT/HCPCS: 73564

== ENCOUNTER → 2022-10-13 | Outpatient (CLI) | payer BC, SELFPAY ==
[2022-10-13 18:20] LABS: Vitamin B12 364 pg/mL (211-911); Vitamin D,25 Hydroxy 77.8 ng/mL
[2022-10-13 18:39] LABS: Anion Gap 6 (5-15); BUN 15 mg/dL (7-18); BUN/Creat Ratio 19.5 RATIO (10-20); Calcium,Total 9.1 mg/dL (8.5-10.1); Chloride 111 mmol/L (98-107); Creatinine, Serum 0.77 mg/dL (0.55-1.02); EST Glomerular Filtration Rate 86 mL/min (>60); Est Glom Filt Rate - Afr Amer 104 mL/min (>60); Glucose 96 mg/dL (74-106); Potassium 3.5 mmol/L (3.5-5.1); Sodium Level 144 mmol/L (136-145)
== END | disposition home or self-care (01) ==
LOC: MTLAB 16:12
PROVIDERS: PCP Family Medicine; Referring Provider Internal Medicine Endocrinology, Diabetes & Metabolism; Visit Provider Internal Medicine Endocrinology, Diabetes & Metabolism
DX: E03.8 Other specified hypothyroidism (principal); E55.9 Vitamin D deficiency, unspecified; D51.3 Other dietary vitamin B12 deficiency anemia
CPT/HCPCS: 36415; 80048; 82306; 82607; 84443

== ENCOUNTER 2022-12-30 16:00 | Outpatient (RCR) | payer BC, SELFPAY ==
--- NOTE | 2022-10-19 14:54 | HP.PTEVAL ---
Patient's Visit Information Visit Information Visit Information: HALIE WILKINS is a 47 year old F referred to Physical Therapy by Brook De La Cruz MD with a diagnosis of R knee pain. Date of Evaluation: 10/19/22 Physical Therapist: JEAN Villarreal Visit Plan Frequency: 2x /Week Duration: 2 Months Plan: 2X/ week for 8 weeks for R knee AROM, stretching, strengthening of hip and knee, gait training with HEP and ice as needed with HEP HEP: heel slides and QS to increase ROM and walk with normal gait pattern Subjective Subjective: She had a high school injury of R knee and had partial tear of ACL R knee but it healed but it was always tender. 2 weeks ago she played a game of [employer] ball and between running the bases etc she got up and her knee was a little puffy but then that weekend she did major cleaning and moving furniture. Her R lateral knee was swollen and her whole leg was swollen and B ankles were swollen. Now she feels she has medial and lateral thigh pain and calf pain and pain in the ankle. She has more pain on the inside of her knee. She saw a PCP and was told to do IBprof and ice but the Ibprof made her sick. She did get an x-ray. X-ray was clear. Stairs: she has to pull self up the stairs or she has to go 2 feet to a stair since the last few weeks. Sit to stand: able to get up without using her arms. She has uncomfortable pain at night and can not get comfortable. It does not hurt to walk but just gets tired. No giving out or popping. By the end of the day it is so stiff. It is progressivley getting better. She has a tight back but no back pain per se. Pain R knee pain: Pain Intensity (Out of 10): 1 Objective Objective: Gait: walks with decrease step length on the R and decrease stance time on the R. Decrease heel to toe gait pattern LE MMT: R hip flex 11.2 and L 16.8 R knee ext 14.4 and L 24.4 R knee flex 7.8 and L 12.4 R hip abd 10.3 and L 17 R knee AROM: -20 degrees from full extension to 87 degrees knee flexion L knee AROM: 0- 125 R Tib fib 44.4, inf pat 48, sup pat 55.4 L 44.8, 48, 50.8 Balance/Special Test Scores Lower Extremity Functional Score: 41 Goals Goal 1:: I HEP Goal Time Frame: 6-8 Weeks Goal 2:: Increase R knee AROM (at time of the eval:R knee AROM: -20 degrees from full extension to 87 degrees knee flexion L knee AROM: 0- 125) Goal Time Frame: 6-8 Weeks Goal 3:: Increase R knee/hip strength (at time of the eval: R hip flex 11.2 and L 16.8 R knee ext 14.4 and L 24.4 R knee flex 7.8 and L 12.4 R hip abd 10.3 and L 17) Goal Time Frame: 6-8 Weeks Goal 4:: Be able to walk with a normal gait pattern without antalgic gait Goal Time Frame: 4-6 Weeks Rehabilitation Potential Rehabilitation Potential: Good Anticipated Interventions Patient/Client Instruction: Educate patient on: Condition and Plan of Care For the Purpose of:: To decrease pain, To decrease swelling/inflammation, To increase ROM, To improve nutrient delivery to tissue, To improve muscle performance and motor function, To improve ability to perform ADL's, To increase tolerance to activity/condition/position, To improve performance and independence with ADL's, To decrease level of supervision to perform tasks, To improve ability of physical actions for home/community/work/leisure, To improve gait and locomotor functions, To improve health of tissue, To decrease soft tissue restriction and To increase flexibility/ROM Therapeutic Exercise to Include: Strength training, Flexibilty training, Gait and locomotor training, Passive ROM, Active ROM and Dynamic Lumbar Stabilization For the Purpose of:: To decrease pain, To increase ROM, To improve nutrient delivery to tissue, To improve muscle performance and motor function, To improve ability to perform ADL's, To increase tolerance to activity/condition/position, To improve ability of physical actions for home/community/work/leisure, To improve gait and locomotor functions, To improve health of tissue, To decrease soft tissue restriction and To increase flexibility/ROM Functional Training to Include: Gait training For the Purpose of:: To improve gait and locomotor functions Manual Therapy Techniques to Include: Passive ROM For the Purpose of:: To increase ROM Cryotherapy (ice pack, ice massage): Yes For the Purpose of:: To decrease pain, To decrease swelling/inflammation and To improve nutrient delivery to tissue Text: Thank you for the opportunity to evaluate your patient. For Medicare and Medicare HMO plans, please review the plan of care and approve it. It will need to be FAXED BACK to us at [phone] for Medicare purposes. For Medicare only, by signing this I certify the plan of care. Please let me know if there are questions or concerns regarding this plan of care. Physician Signature: Date:
--- NOTE | 2022-12-30 18:44 | HP.PTREVAL_ITS ---
Re-Evaluation Intro: Brook De La Cruz MD, It has been my pleasure to treat HALIE WILKINS over the last 6 visits for R knee pain. Please see the progress note below for an update on the physical therapy plan of care! Subjective Subjective: Pt. reports was waiting on hearing from ortho. She reports she has been waiting for 3 weeks to hear from them. She reports overall being better, but is still having some issues. She has decreased ROM still and still feels weak. Objective Objective/Function: ROM: R knee 0-8-106deg. Pt. has tightness and slight pain at end ranges. Tight HS and quads as well. MMT: R knee: ext 23.5#, flexion 18.7#; hip: flexion 16.1#, abd 19.3#. gait; Pt. lacks TKE during stance phase, but has proper knee flexion during swing. STAIRS: increased pain with descending and some marked functional weakness with both ascending and descending. I did not see any positive testing with meniscal testing this date, but she does have some joint effusion and her lack of motion, suggests some some sore of soft tissue injury. She has had symptoms for a lengthy amount of time. She was to follow up with ortho. I suggest that she do this and back to PT if warranted Plan Plan Plan: Pt. is awaiting appointment with ortho. I suggest she continue with her HEP with focus on ROM and strengthening and consult ortho for further assessment . Balance/Gait/Functional tests Balance/Special Test Scores Lower Extremity Functional Score: 41 Goals Goals Goal 1:: I HEP Goal Time Frame: 6-8 Weeks Goal Progress: Goal Met Goal 2:: Increase R knee AROM (at time of the eval:R knee AROM: -20 degrees from full extension to 87 degrees knee flexion L knee AROM: 0- 125) Goal Time Frame: 6-8 Weeks Goal Progress: Progressing Goal 3:: Increase R knee/hip strength (at time of the eval: R hip flex 11.2 and L 16.8 R knee ext 14.4 and L 24.4 R knee flex 7.8 and L 12.4 R hip abd 10.3 and L 17) Goal Time Frame: 6-8 Weeks Goal Progress: Progressing Goal 4:: Be able to walk with a normal gait pattern without antalgic gait Goal Time Frame: 4-6 Weeks Goal Progress: Progressing Anticipated Interventions Anticipated Interventions Patient/Client Instruction: Educate patient on: Condition and Plan of Care For the Purpose of:: To decrease pain, To decrease swelling/inflammation, To increase ROM, To improve nutrient delivery to tissue, To improve muscle performance and motor function, To improve ability to perform ADL's, To increase tolerance to activity/condition/position, To improve performance and independence with ADL's, To decrease level of supervision to perform tasks, To improve ability of physical actions for home/community/work/leisure, To improve gait and locomotor functions, To improve health of tissue, To decrease soft tissue restriction and To increase flexibility/ROM Therapeutic Exercise to Include: Strength training, Flexibilty training, Gait and locomotor training, Passive ROM, Active ROM and Dynamic Lumbar Stabilization For the Purpose of:: To decrease pain, To increase ROM, To improve nutrient delivery to tissue, To improve muscle performance and motor function, To improve ability to perform ADL's, To increase tolerance to activity/condition/position, To improve ability of physical actions for home/community/work/leisure, To improve gait and locomotor functions, To improve health of tissue, To decrease soft tissue restriction and To increase flexibility/ROM Functional Training to Include: Gait training For the Purpose of:: To improve gait and locomotor functions Manual Therapy Techniques to Include: Passive ROM For the Purpose of:: To increase ROM Cryotherapy (ice pack, ice massage): Yes For the Purpose of:: To decrease pain, To decrease swelling/inflammation and To improve nutrient delivery to tissue Re-Evaluation Ending Re-evaluation ending: Please do not hesitate to contact me at [phone] by phone or if you have questions or concerns regarding this new plan of care! Sincerely, Yousuf Pacheco DPT
--- NOTE | 2023-04-20 07:27 | HP.PTDCSUM ---
Discharge Summary D/C summary: It has been my pleasure to treat HALIE WILKINS referred by Brook De La Cruz MD, with the diagnosis of R knee pain for a total of 6 visit(s). Discharge Date: 04/20/23 Please see the following information for a summary of their discharge status. Subjective Subjective: Pt. reports was waiting on hearing from ortho. She reports she has been waiting for 3 weeks to hear from them. She reports overall being better, but is still having some issues. She has decreased ROM still and still feels weak. Pain R knee pain: Pain Intensity (Out of 10): 3 Objective Objective/Function: ROM: R knee 0-8-106deg. Pt. has tightness and slight pain at end ranges. Tight HS and quads as well. MMT: R knee: ext 23.5#, flexion 18.7#; hip: flexion 16.1#, abd 19.3#. gait; Pt. lacks TKE during stance phase, but has proper knee flexion during swing. STAIRS: increased pain with descending and some marked functional weakness with both ascending and descending. I did not see any positive testing with meniscal testing this date, but she does have some joint effusion and her lack of motion, suggests some some sore of soft tissue injury. She has had symptoms for a lengthy amount of time. She was to follow up with ortho. I suggest that she do this and back to PT if warranted Goals Goal 1:: I HEP Goal Progress: Goal Met Goal 2:: Increase R knee AROM (at time of the eval:R knee AROM: -20 degrees from full extension to 87 degrees knee flexion L knee AROM: 0- 125) Goal Progress: Progressing Goal 3:: Increase R knee/hip strength (at time of the eval: R hip flex 11.2 and L 16.8 R knee ext 14.4 and L 24.4 R knee flex 7.8 and L 12.4 R hip abd 10.3 and L 17) Goal Progress: Progressing Goal 4:: Be able to walk with a normal gait pattern without antalgic gait Goal Progress: Progressing Plan Plan: Pt. is awaiting appointment with ortho. I suggest she continue with her HEP with focus on ROM and strengthening and consult ortho for further assessment. D/C Information Discharge Comments: DC PT d/c sentence: If there are questions or concerns regarding this patient's physical therapy, please feel free to call me at [phone]. Thank you for the referral of this patient. Sincerely, Destinee Jimenez, MPT Balance/Gait/Functional tests Balance/Special Test Scores Lower Extremity Functional Score: 41
== END 2022-12-30 19:00 | disposition home or self-care (01) ==
LOC: PT 16:00
PROVIDERS: PCP Family Medicine; Referring Provider Family Medicine; Visit Provider Family Medicine
DX: M25.561 Pain in right knee
CPT/HCPCS: 97110; 97161; 97164

== ENCOUNTER → 2023-04-14 | Outpatient (CLI) | payer BC, SELFPAY ==
[2023-04-14 18:12] LABS: Vitamin B12 430 pg/mL (211-911)
[2023-04-14 18:17] LABS: Anion Gap 7 (5-15); BUN 8 mg/dL (7-18); Calcium,Total 8.7 mg/dL (8.5-10.1); Chloride 107 mmol/L (98-107); Creatinine, Serum 0.73 mg/dL (0.55-1.02); EST Glomerular Filtration Rate 92 mL/min (>60); Est Glom Filt Rate - Afr Amer 111 mL/min (>60); Glucose 103 mg/dL (74-106); Potassium 3.5 mmol/L (3.5-5.1); Sodium Level 142 mmol/L (136-145); Thyroid Stim Hormone (TSH) 3.18 uIU/mL (0.358-3.74)
== END | disposition home or self-care (01) ==
LOC: MTLAB 15:24
PROVIDERS: PCP Family Medicine; Referring Provider Internal Medicine Endocrinology, Diabetes & Metabolism; Visit Provider Internal Medicine Endocrinology, Diabetes & Metabolism
DX: E03.8 Other specified hypothyroidism (principal); D51.3 Other dietary vitamin B12 deficiency anemia
CPT/HCPCS: 36415; 80048; 82607; 84443

== ENCOUNTER → 2023-10-11 | Outpatient (CLI) | payer BC, SELFPAY ==
[2023-10-11 10:37] LABS: Vitamin D,25 Hydroxy 40.2 ng/mL
[2023-10-11 10:58] LABS: Anion Gap 5 (5-15); BUN 15 mg/dL (7-18); BUN/Creat Ratio 17.5 RATIO (10-20); Calcium,Total 9.4 mg/dL (8.5-10.1); Chloride 110 mmol/L (98-107); Cholesterol 202 mg/dL (200); Creatinine, Serum 0.86 mg/dL (0.55-1.02); EST Glomerular Filtration Rate 76 mL/min (>60); Est Glom Filt Rate - Afr Amer 91 mL/min (>60); Glucose 100 mg/dL (74-106); High Density Lipoprotein 37 mg/dL; Potassium 3.2 mmol/L (3.5-5.1); Sodium Level 141 mmol/L (136-145); Thyroid Stim Hormone (TSH) 2.28 uIU/mL (0.358-3.74); Triglycerides 155 mg/dL; Very Low Density Lipoprotein 31 mg/dL (5-40)
== END | disposition home or self-care (01) ==
PROVIDERS: PCP Family Medicine; Referring Provider Internal Medicine Endocrinology, Diabetes & Metabolism; Visit Provider Internal Medicine Endocrinology, Diabetes & Metabolism
DX: E03.8 Other specified hypothyroidism (principal); E55.9 Vitamin D deficiency, unspecified
CPT/HCPCS: 36415; 80048; 80061; 82306; 84443

== ENCOUNTER → 2023-10-29 | Outpatient (CLI) | payer BC, SELFPAY ==
[2023-10-29 15:20] LABS: Anion Gap 8 (5-15); BUN 14 mg/dL (7-18); BUN/Creat Ratio 20.1 RATIO (10-20); Calcium,Total 9.4 mg/dL (8.5-10.1); Chloride 107 mmol/L (98-107); EST Glomerular Filtration Rate 96 mL/min (>60); Est Glom Filt Rate - Afr Amer 116 mL/min (>60); Glucose 98 mg/dL (74-106); Potassium 3.6 mmol/L (3.5-5.1); Sodium Level 138 mmol/L (136-145)
== END | disposition home or self-care (01) ==
LOC: MTLAB 12:56
PROVIDERS: PCP Family Medicine; Referring Provider Internal Medicine Endocrinology, Diabetes & Metabolism; Visit Provider Internal Medicine Endocrinology, Diabetes & Metabolism
DX: E03.8 Other specified hypothyroidism (principal)
CPT/HCPCS: 36415; 80048

== ENCOUNTER → 2024-05-17 | Outpatient (CLI) | payer BC, SELFPAY ==
[2024-05-17 09:13] LABS: Anion Gap 8 (5-15); BUN 12 mg/dL (7-18); BUN/Creat Ratio 15.6 RATIO (10-20); Calcium,Total 9.3 mg/dL (8.5-10.1); Chloride 107 mmol/L (98-107); Creatinine, Serum 0.77 mg/dL (0.55-1.02); EST Glomerular Filtration Rate 85 mL/min (>60); Est Glom Filt Rate - Afr Amer 103 mL/min (>60); Glucose 109 mg/dL (74-106); Potassium 3.6 mmol/L (3.5-5.1); Sodium Level 141 mmol/L (136-145)
== END | disposition home or self-care (01) ==
LOC: LAB 08:04
PROVIDERS: PCP Family Medicine; Referring Provider Internal Medicine Endocrinology, Diabetes & Metabolism; Visit Provider Internal Medicine Endocrinology, Diabetes & Metabolism
DX: E03.8 Other specified hypothyroidism (principal)
CPT/HCPCS: 36415; 80048; 84443

== ENCOUNTER → 2024-09-07 | Outpatient (CLI) | payer BC, SELFPAY ==
[2024-09-07 12:55] LABS: Absolute Lymphocyte Count 1.98 X10^3/uL (0.83-4.51); Absolute Neutrophil Count 4.9 X10^3/uL (2.0-7.7); Basophil# 0.04 X10^3/uL; Basophil% 0.5 % (0-1); Eosinophil# 0.27 X10^3/uL; Eosinophils% 3.5 % (0-5); Hematocrit 41.8 % (37-47); Hemoglobin 13.6 g/dL (12.0-15.0); Lymphocyte # 1.98 X10^3/ul (0.83-4.51); Lymphocyte % 25.4 % (19-41); Mean Corp Hgb Conc 32.5 g/dL (32-36); Mean Corpuscular Hgb 29.4 pg (27.0-32.0); Mean Corpuscular Volume 90.5 fL (81-99); Mean Platelet Vol. 10.4 fl (6.2-12.0); Monocyte# 0.61 X10^3/uL; Monocyte% 7.8 % (0-10); NRBC Flagged by Analyzer 0 % (0-5); Neutrophil # 4.87 X10^3/uL (2.7-7.7); Neutrophil % 62.7 % (47-70); Platelet Count 332 K/mm3 (150-450); RBC Distribution Width CV 13.2 % (11.6-14.6); RBC Distribution Width SD 43.6 fl (35.1-43.9); Red Blood Count 4.62 M/mm3 (4.2-5.4); White Blood Count 7.8 K/mm3 (4.4-11.0)
[2024-09-07 13:54] LABS: Ferritin 54 ng/mL (22-378); Vitamin B12 454 pg/mL (180-914); Vitamin D,25 Hydroxy 72.8 ng/mL (30-100)
== END | disposition home or self-care (01) ==
LOC: LAB 12:18
PROVIDERS: PCP Family Medicine; Referring Provider Internal Medicine Endocrinology, Diabetes & Metabolism; Visit Provider Internal Medicine Endocrinology, Diabetes & Metabolism
DX: E03.9 Hypothyroidism, unspecified (principal); E06.3 Autoimmune thyroiditis; K90.41 Non-celiac gluten sensitivity; R53.81 Other malaise; R53.83 Other fatigue
CPT/HCPCS: 36415; 82306; 82607; 82728; 84443; 85025

== ENCOUNTER → 2025-03-03 | Outpatient (CLI) | payer BC, SELFPAY ==
--- OUTSIDE RECORDS SUMMARY | 2025-03-03 09:11 | XMS RPT_ITS | CCD ---
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 Araseli Medellin MD Primary Care Provider Josep FAM, Dr. Urbano Attending Provider Dr. Yolie Car MD Referring Provider Dr. Araseli Medellin MD Referring Provider King SARWAT, Dr. Flynn Attending Provider King SARWAT, Dr. Flynn Referring Provider ARASELI MEDELLIN Primary Care Unavailabl OTF Bernal Referring Unavailable OTF OLIVARES Attending Unavailable ARASELI MEDELLIN Primary Care Unavailabl e ARASELI MEDELLIN Primary Care Unavailabl e OTF OLIVARES Referring Unavailable ARASELI MEDELLIN Primary Care Unavailabl LESLYE Gonzáles Attending Unavailable ARASELI MEDELLIN Primary Care Unavailabl e TAMANNA PYLE Attending Unavailable OTF OLIVARES Referring Unavailable OTF OLIVARES Attending Unavailable ARASELI MEDELLIN Primary Care Unavailabl e ARASELI MEDELLIN Primary Care Unavailabl e OTF OLIVARES Referring Unavailable Araseli Medellin Referring Unavailable Gee Lucia Attending Unavailable Araseli Medellin Primary Care Unavailable Gee Lucia Attending Unavailable Gee Lucia Referring Unavailable Araseli Medellin Primary Care Unavailable Araseli Medellin Primary Care Unavailable Yolie Car Attending Unavailable Yolie Car Referring Unavailable Araseli Medellin Referring Unavailable Nahum Burdick Attending Unavailable Araseli Medellin Primary Care Unavailable Vignesh FAM, Dr. Paniagua Primary Care Physicia n Dr. Araseli Medellin MD Referring Provider Nahum Burdick Attending Physician [phone] Allergies Allergy Classification Reported Allergen(s) Allergy Type Date of Onset Reaction(s) Facility (20 sources) nickel; Translations: [NICKEL] Drug Allergy 06-25-2015 Unknown [facility] (3 sources) Wheat gluten extract Drug Allergy 09-04-2024 Rash [facility] (1 source) Gluten Drug allergy (disorder) 02-02-2025 [facility] (1 source) nickel Drug Allergy 02-02-2025 [facility] Medications Current Medications Medication Drug Class(es) Dates Sig (Normalized) Sig (Original) benzonatate 100 mg oral capsule (1 source) Non-narcotic Antitussive Start: 10-20-2024 take 2 capsules by mouth three times daily as needed benzonatate (TESSALON PERLE) 100 mg capsule Indications: Lower resp. tract infection Take 2 capsules by mouth three times a day as needed. 30 capsule 10/20/2024 Active Start: 10-20-2024 take 2 capsules by m outh three times daily as needed benzonatate (TESSALON PERLE) 100 mg capsule Indications: Lower resp. tract infection Take 2 capsules by mouth three times a day as needed. 30 capsule 10/20/2024 Active cholecalciferol 0.375 mg/ml oral solution (3 sources) Vitamin D Start: 08-21-2024 take 25 ug by mouth once Cholecalciferol (Vitamin D3) 25 mcg/drop ( 1000 unit/drop) drops Active 25 ug PO ONCE August 21, 2024 12:00am Complies with drug therapy cholecalciferol, vitamin D3, (VITAMIN D3 ORAL) (20 sources) take 5000 [IU] by mouth once daily cholecalciferol, vitamin D3, (VITAMIN D3 ORAL) Take 5,000 Units by mouth once daily. Active take 5000 [IU] by mouth once andria ly cholecalciferol, vitamin D3, (VITAMIN D3 ORAL) Take 5,000 Units by mouth once daily. 0 Active Comment on above: Take 5,000 Units by mouth once daily. CPAP (20 sources) Start: 03-15-2023 CPAP Indicatio ns: DEE (obstructive sleep apnea) Supplies: AutoPAP 8-20 cmH2O, suitable mask, humidity, heated tubing (STEFAN), filters. Lifetime supplies. Dx: G47.33 1 Each 03/15/2023 Active Start: 05-05-2021 End: 03-15-2023 CPAP Indications: DEE (obstr uctive sleep apnea) New Set up (Severe DEE): AutoPAP 8-20 cmH2O, suitable mask, humidity, heated tubing (STEFAN), filters. Lifetime supplies. Dx: G47.33 1 Each 05/05/2021 03/15/2023 Discontinued Start: 05-05-2021 CPAP Indicatio ns: DEE (obstructive sleep apnea) New Set up (Severe DEE): AutoPAP 8-20 cmH2O, suitable mask, humidity, heated tubing (STEFAN), filters. Lifetime supplies. Dx: G47.33 1 Each 05/05/2021 Active Comment on above: New Set up (Severe O SA): AutoPAP 8-20 cmH2O, suitable mask, humidity, heated tubing (STEFAN), filters. Lifetime supplies. Dx: G47.33 Supplies: AutoPAP 8- 20 cmH2O, suitable mask, humidity, heated tubing (STEFAN), filters. Lifetime supplies. Dx: G47.33 CPAP/BIPAP/OTHER (3 sources) Start: 05-15-2024 End: 09-29-2051 CPAP/BIPAP/OTHER Supplies: Settings 8 - 20 cm H2O, suitable mask per pt preference, chin strap, head gear, humidity, tubing, lifetime supplies. G47.33 DEE 1 Each 05/15/2024 09/29/2051 Active doxycycline monohydrate 100 mg oral tablet (2 sources) Tetracycline-class Drug Start: 10-20-2024 End: 10-25-2024 take 1 tablet by mouth twice daily doxycycline monohydrate 100 mg tablet Indications: Lower resp. tract infection Take 1 tablet by mouth two times a day for 5 days. 10 tablet 10/20/2024 10/25/2024 Active Start: 04-03-2024 End: 04-13-2024 take 1 capsule by mouth twice daily doxycycline monohydrate (MONODOX) 100 mg capsule Take 1 capsule by mouth two times a day for 10 days. 20 capsule 04/03/2024 04/13/2024 Active levothyroxine sodium 0.15 mg oral tablet (13 sources) l-Thyroxine Start: 09-04-2024 take 1 tablet by mouth once daily levothyroxine (SYNTHROID) 150 mcg tablet Take 1 tablet by mouth once daily. 10/09/2024 Active Start: 09-24-2014 End: 08-21-2024 take 1 tablet by mouth once daily Levothyroxine 100 MCG tablet Discontinued 100 ug PO DAILY September 24, 2014 12:00am August 21, 2024 7:39am End: 12-02-2021 Levothyroxine 112 mcg cap Ta ke by mouth. 0 12/02/2021 Discontinued (Other) Comment on above: Take by mouth. polymyxin b 86996 unt/ml / trimethoprim 1 mg/ml ophthalmic solution (1 source) Dihydrofolate Reductase Inhibitor Antibacterial, Polymyxin-class Antibacterial Start: End: Polymyxin B Sulf-Trimethoprim 10,000 unit- 1 mg/mL drops Discontinued 1 NMA OPHTHALMIC Q3H 10 7 0 February 02, 2025 12:00am February 08, 2025 12:00am February 09, 2025 12:09am while awake; do not exceed 6 doses in 24 hours thyroid,pork (ARMOUR THYROID ORAL) (20 sources) take 30 mg by mouth once daily thyroid,pork (ARMOUR THYROID ORAL) Take 30 mg by mouth once daily. Unsure of dose Active take 30 mg by mouth once daily t hyroid,pork (ARMOUR THYROID ORAL) Take 30 mg by mouth once daily. Unsure of dose 0 Active Comment on above: Take 30 mg by mouth once daily. Unsure of dose Completed/Discontinued Medications Medication Drug Class(es) Dates Sig (Normalized) Sig (Original) acetaminophen 325 mg / HYDROcodone bitartrate 5 mg oral tablet (8 sources) Opioid Agonist Start: 09-28-2014 End: 08-21-2024 Hydrocodone-Acetami nophen 1 TABLET tablet Discontinued 1 - 2 {tbl} PO EVERY 4 HOURS NEEDED as needed for Pain 20 0 September 28, 2014 12:00am August 21, 2024 7:39am Start: 09-28-2014 take 1 tablet by venita th every four hours as needed Hydrocodone-Acetaminophen Active 1 - 2 TABLET PO EVERY 4 HOURS NEEDED September 27, 2014 11:00pm ciprofloxacin 250 mg oral tablet (8 sources) Quinolone Antimicrobial Start: 09-28-2014 End: 08-21-2024 take 1 tablet by mouth twice daily Ciprofloxacin Hcl 250 MG tablet Discontinued 250 mg PO TWICE A DAY 14 0 September 28, 2014 12:00am August 21, 2024 7:39am cyanocobalamin, vitamin B-12, (VITAMIN B-12 ORAL) (14 sources) End: 01-26-2023 cyanocobalamin, vitamin B-12, (VITAMIN B-12 ORAL) Take by mouth. 0 01/26/2023 Discontinued (Other) cyanocobalamin, vitamin B-12, (VITAMIN B-12 ORAL) Take by mouth. 0 Active Comment on above: Take by mouth. ketorolac tromethamine 10 mg oral tablet (8 sources) Nonsteroidal Anti-inflammatory Drug, Cyclooxygenase Inhibitor Start: 09-29-19 15 End: 08-22-19 25 take 1 tablet by mouth every six hours as needed for pain Ketorolac 10 MG tablet Discontinued 10 mg PO EVERY 6 HOURS as needed for Abdominal Pain 14 0 September 28, 2014 2:44pm August 21, 2024 7:39am Lactobacillus acidophilus (14 sources) End: 01-27-20 23 Lactobacillus acidophilus (PROBIOTIC ORAL) Take by mouth. 0 01/26/2023 Discontinued (Other) Lactobacillus ac idophilus (PROBIOTIC ORAL) Take by mouth. 0 Active Comment on above: Take by mouth. meloxicam 15 mg oral tablet (8 sources) Nonsteroidal Anti-inflammatory Drug Start: 01-23-20 23 End: 03-02-20 24 take 1 tablet by mouth once meloxicam (MOBIC) 15 mg tablet Take 1 tablet by mouth every afternoon. 01/22/2023 03/02/2024 Discontinued (Other) Comment on above: Take 1 tablet by venita th every afternoon. metFORMIN hydrochloride 500 mg oral tablet (1 source) Biguanide End: 12-03-19 take 1 tablet by mouth twice daily at mealtime metFORMIN (GLUCOPHAGE) 500 mg tablet Take 500 mg by mouth twice daily with meals. 0 12/02/2021 Discontinued (Other) Comment on above: Take 500 mg by mouth twice daily with meals. Thyroid (Pork) ([place]incoln Thyroid) 15 mg tablet (2 sources) Start: 08-22-19 End: 09-05-19 take 1 tablet by mouth once daily Thyroid (Pork) ([place] Thyroid) 15 mg tablet Discontinued 15 mg PO daily August 21, 2024 12:00am September 04, 2024 12:40pm 2 on wednesday thyroid (retirement) 15 mg oral tablet (1 source) Start: 08-22-19 End: 09-05-19 take 1 tablet by mouth once daily Thyroid (Pork) ([place]incoln Thyroid) 15 mg tablet Discontinued 15 mg PO daily August 21, 2024 12:00am September 04, 2024 12:40pm 2 on wednesday Problems Active Problems Problem Classification Problem Date Documented Date Episodic/Chronic Allergic reactions (6 sources) Non-celiac gluten sensitivity; Translations: [Gluten intolerance] Onset: 5 09-04-2024 Chronic Immunizations and screening for infectious disease (7 sources) Patient encounter status; Translations: [Encounter for screening for human papillomavirus (HPV)] Episodic Menstrual disorders (9 sources) Menorrhagia; Translations: [Excessive and frequent menstruation with regular cycle] Onset: 4 03-02-2024 Chronic Nonmalignant breast conditions (2 sources) Mammographic microcalcification of breast; Translations: [Mammographic microcalcification found on diagnostic imaging of breast] Onset: 2 Episodic Other lower respiratory disease (1 source) Lower respiratory tract infection; Translations: [Unspecified acute lower respiratory infection] 10-20-2024 Episodic Other lower respiratory disease (1 source) Unspecified acute lower respiratory infection; Translations: [Lower resp. tract infection] Onset: 5 Episodic Other nutritional; endocrine; and metabolic disorders (1 source) Obesity; Translations: [Obesity, unspecified] 09-15-2024 Chronic Residual codes; unclassified (20 sources) Obstructive sleep apnea syndrome; Translations: [Obstructive sleep apnea (adult) (pediatric)] Onset: 7 05-05-2021 Chronic Residual codes; unclassified (1 source) Obstructive sleep apnea (adult) (pediatric); Translations: [DEE (obstructive sleep apnea)] Onset: 2 Chronic Superficial injury; contusion (2 sources) Abrasion of left cornea; Translations: [Injury of conjunctiva and corneal abrasion without foreign body, left eye, initial encounter] 02-02-2025 Episodic Thyroid disorders (8 sources) 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; Translations: [Autoimmune thyroiditis] Onset: 5 09-04-2024 Chronic Past or Other Problems Problem Classification Problem Date Documented Da te Episodic/Chronic Benign neoplasm of uterus (6 sources) Submucous leiomyoma of uterus; Translations: [Submucous leiomyoma of uterus] Onset: 03-30-2024 03-30-2024 Episodic Malaise and fatigue (7 sources) Malaise and fatigue; Translations: [Other malaise] Onset: 09-04-2024 09-04-2024 Episodic Other screening for suspected conditions (not mental disorders or infectious disease) (9 sources) Cancer cervix screening status; Translations: [Encounter for screening for malignant neoplasm of cervix] Onset: 03-02-2024 Episodic Results Test Name Value Interpretation Reference Range Facility Urgent Care Visit Reporton 1 Urgent Care Visit Report [facility] [address], [address] [place] [address] OFFICE VISIT Date of Service: 02/02/25 MR#: [id number] Acct: [id number] Name: HALIE WILKINS Rep #: [id number] : 1975 Provider: GAETANO Delgado Age/Sex: 49/F Location: [facility] Status: Signed Intake Vital Signs 09/04/24 10:48 02/02/25 07:09 Height 5 ft 8.5 in 5 ft 8.5 in Weight: 289 lb 284 lb BMI 43.2 42.5 BP 143/87 H 142/92 H Blood Pressure Location Lt brachial Lt brachial Position Sitting Sitting Pulse 75 88 Pulse Source Monitor Monitor Temp 97.7 F L Temp Source Oral Pulse Oximetry (%) 98 97 Oxygen Delivery Method room air room air Intake Visit Reasons: CONCERN FOR L EYE INFECTION Chief Complaint: eye issue Accompanied by: Self Allergies gluten Allergy (Severe, Verified 02/02/25 07:09) Rash nickel Allergy (Verified 02/02/25 07:09) Unknown Medications ???Medication ???Instructions ???Recorded ???Confirmed ???Type cholecalciferol (vitamin D3) 25 25 mcg PO ONCE 08/21/24 02/02/25 H istory mcg/drop (1,000 unit/drop) oral drops levothyroxine 150 mcg tablet 150 mcg PO QDAY #90 tabs 09/04/24 02/02/25 Rx (Unithroid) polymyxin B sulfate 10,000 1 drp ophthalmic (eye) Q3H 7 days 02/02/25 02/02/25 Rx unit-trimethoprim 1 mg/mL eye drops #10 mL Nurse's Note: Left eye watering, light sensitivity. X 1 day. 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 Thyroid disease Kidney stones Hypertension Migraines IBS (irritable bowel syndrome) Back problem Surgical History (Updated 08/21/24 @ 07:42 by Taye Nix RN) History of appendectomy Family History (Updated 08/21/24 @ 07:45 by Taye Nix RN) Father Diabetes Heart disease Hypertension Mother Heart disease Respiratory disease Grandfather Diabetes Social History (Updated 08/21/24 @ 07:43 by Taye Nix RN) Smoking Status: Never smoker alcohol intake: never substance use type: does not use frequency: 1-2 times per week HPI HPI Chief Complaint: eye issue Details: HALIE WILKINS, is a 49 F who presents to the office today for complaint of left eye irritation. Patient states that she has noticed this irritation and drainage as well as pain since yesterday. Patient does admit to wearing contacts regularly however has not had them in since the pain started. 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 Patient denies headache or pain around the eye. No other associated symptoms or alleviating/aggravatin g factors. ROS Const Constitutional: No other (6 system ROS completed with pertinent findings in the HPI otherwise normal.) Exam Const General: cooperative and healthy appearing [facility] Head: normocephalic and atraumatic Ears: hearing grossly normal bilaterally Face and sinus: face symmetric Eyes General: appearance normal, both eyes and all related structures Visual Villasenor: normal visual villasenor by confrontation Alignment and Position: alignment normal Periorbital: periorbital findings normal Eyelids: eyelids normal Conjunctivae: conjunctival abnormality left conjunctival injection and discharge Cornea: corneas abnormal on the left fluorescein used and abrasion; no contact lens present, without dendrites present and with no foreign body noted Pupils: PERRL Resp Effort Inspection: normal respiratory effort Cardio Rate: regular rate Skin General: no rashes or lesions noted Psych Appearance: grossly normal Coding Level of Care Code Off vis,new,level 3 Diagnoses Corneal abrasion, left S05.02XA Assessment and Plan Assessment and Plan (1) Corneal abrasion, left: Status: Acute Plan: Polytrim as prescribed today. 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 Advised of symptomatic management techniques as well as potential red flags and when appropriate to report to the ED. Patient verbalized understanding and agreement with all the above. Medications: New polymyxin B sulf-trimethoprim 10,000 unit- 1 mg/mL while awake; do not exceed 6 doses in 24 hours 1 drp ophthalmic (eye) Q3H 10 mL 0RF 7 days 02/02/25726 Date Nahum Kelly Signature: Date (if applicable) CC: Normal [facility] CNOVon 10-20-2024 CNOV Office Visit (UCWSTR ) HALIE WILKINS ([id number]) 1975 F UPA Date Time Provider Department 10/20/24 8:15 AM LESLYE LUCIA During your visit today, we recorded the following information about you: Temperature Pulse Respiration Blood pressure 97.6 degrees 80/minute 18/minute 130/78 Weight 127.9 kg Leslye Lucia APRN.CYLINDER SANDER OPERATOR 10/20/2024 9:39 AM Signed [facility] Subjective HPI HPI Halie Wilkins is a 49 year old female who presents today for CC of cough, loss voice. This started 1 week ago/worsening. Has tried otc medication for relief. Symptoms are worsened by nothing. nonsmoker. .Patient presents with: Cough: Voice coming and going x 1 week PAST MEDICAL HISTORY Diagnosis Date DEE (obstructive sleep apnea) 01/30/2009 PSG and titration done @ Dr Cutris office - AHI 74 - retitration done 2012 @ [facility] DEE on CPAP 04/2016 AutoPAP 8-20 DME [facility] PCOS (polycystic ovarian syndrome) PAST SURGICAL HISTORY Procedure Laterality Date APPENDECTOMY 2011 SECTION HX 01/14/2006 KIDNEY STONE SURGERY HX ALLERGIES Nickel MEDICATIONS levothyroxine (SYNTHROID) 150 mcg tablet Take 1 tablet by mouth once daily. CPAP/BIPAP/OTHER Supplies: Settings 8 - 20 cm H2O, suitable mask per pt preference, chin strap, head gear, humidity, tubing, lifetime supplies. G47.33 DEE CPAP Supplies: AutoPAP 8-20 cmH2O, suitable mask, humidity, heated tubing (STEFAN), filters. Lifetime supplies. Dx: G47.33 cholecalciferol, vitamin D3, (VITAMIN D3 ORAL) Take 5,000 Units by mouth once daily. thyroid,pork (ARMOUR THYROID ORAL) Take 30 mg by mouth once daily. Unsure of dose (Patient not taking: Reported on 10/20/2024) FAMILY HISTORY Problem Relation Age of Onset Heart Mother Heart Father Diabetes Father Macular Degen Sister other (pcos) Sister Social History Tobacco Use Smoking status: Never Smokeless tobacco: Never Vaping Use Vaping status: Never Used Substance Use Topics Alcohol use: Never Drug use: Never Review of Systems Constitutional: Negative for chills, fatigue and fever. HENT: Positive for rhinorrhea and sore throat. Negative for ear discharge, ear pain, sinus pressure and sinus pain. Eyes: Negative for discharge and redness. Respiratory: Positive for cough. Negative for shortness of breath and wheezing. Cardiovascular: Negative for chest pain. Skin: Negative for rash. Objective BP 130/78 Pulse 80 Temp 36.4 ?C (97.6 ?F) Resp 18 Wt 127.9 kg (281 lb 15.5 oz) LMP 03/21/2024 (Within Days) SpO2 98% BMI 42.87 kg/m? Physical Exam Constitutional: General: She is not in acute distress. Appearance: She is not toxic-appearing or diaphoretic. HENT: Head: Normocephalic and atraumatic. Right Ear: Hearing, tympanic membrane, ear canal and external ear normal. Left Ear: Hearing, tympanic membrane, ear canal and external ear normal. Nose: Nose normal. Mouth/Throat: Pharynx: Uvula midline. Eyes: General: Lids are normal. No scleral icterus. Right eye: No discharge. Left eye: No discharge. Conjunctiva/sclera: Conjunctivae normal. Pupils: Pupils are equal, round, and reactive to light. Neck: Trachea: Trachea normal. Cardiovascular: Rate and Rhythm: Normal rate and regular rhythm. Heart sounds: Normal heart sounds. Pulmonary: Effort: Pulmonary effort is normal. Breath sounds: Examination of the right-lower field reveals rhonchi. Rhonchi present. No decreased breath sounds, wheezing or rales. Musculoskeletal: Cervical back: Normal range of motion and neck supple. Lymphadenopathy: Cervical: No cervical adenopathy. Skin: Findings: No rash. Neurological: Mental Status: She is alert and oriented to person, place, and time. {ASSESSMENT/PLAN: 1. Lower resp. tract infection - ICD9: 519.8, ICD10: J22 No xray at time of exam Exam concerns for pneumonia Treat with doxy -If you experience chest pain/shortness of breath go to ER F/u with pcp if s/s persist. - DOXYCYCLINE MONOHYDRATE 100 MG TABLET - BENZONATATE 100 MG CAPSULE Leslye Lucia APRN.CYLINDER SANDER OPERATOR History and Record Review External record(s) reviewed: no prior records. Additional Tests or Interventions The following testing was considered but ultimately not selected after discussion with patient/family: xray, not available. Disposition The patient was discharged. Procedures Allergies As of Date: 10/20/2024 Noted Allergy Reaction NICKEL 06/25/2015 16 - Unknown Date Reviewed: 10/20/2024 Reviewed by: Nila Ross MA - Fully Assessed Reason for Visit: Cough [28] Cmt: Voice coming and going x 1 week Primary Visit Diagnosis:Lower resp. tract infection [J22] Order(s):doxycycline monohydrate 100 mg tabletTake 1 tablet by mouth two times a day for 5 days.Disp: 10 tabletRfl: 0 benzonatate (TESSALON PERLE) 100 mg capsuleTake 2 capsules by mouth (more content not included)... Normal [facility] Absolute lymphocyte countOrd ered By: Gee Lucia on 09-07-2024 Lymphocytes Auto (Unsp spec) [#/Vol] 1.98 10*3/uL 0.83-4.51 [facility] Absolute neutrophil countOrd ered By: Gee Lucia on 09-07-2024 Neutrophils (Bld) [#/Vol] 4.9 10*3/uL 2.0-7.7 [facility] Automated lymphocyte count a s percentage of total leukocytesOrdered By: Gee Lucia on 09-07-2024 Lymphocytes/100 WBC Auto (Unsp spec) 25.4 % 19-41 [facility] Basophil percentageOrdered B y: Gee Lucia on 09-07-2024 Basophils/100 WBC (Bld) 0.5 % 0-1 [facility] CBC W/Diff, Automatedon 08-18 Absolute Lymph 1.98 X10 3/uL Normal 0.83-4.51 [facility] Comment on above: Performed By: #### L 506.1001, L100.0100, L501.9520, L503.0106, L503.6550 #### [facility] [address] [place], [address] Absolute Neut 4.9 X10 3/uL Normal 2.0-7.7 [facility] Comment on above: Performed By: #### L 506.1001, L100.0100, L501.9520, L503.0106, L503.6550 #### [facility] [address] [place], [address] Basophils/100 WBC (Bld) 0.5 % Normal 0-1 [facility] Comment on above: Performed By: #### L 506.1001, L100.0100, L501.9520, L503.0106, L503.6550 #### [facility] [address] [place], [address] Eosinophils/100 WBC (Bld) 3.5 % Normal 0-5 [facility] Comment on above: Performed By: #### L 506.1001, L100.0100, L501.9520, L503.0106, L503.6550 #### [facility] [address] [place], [address] Erythrocyte distribution width (RBC) [Ratio] 13.2 % Normal 11.6-14.6 [facility] Comment on above: Performed By: #### L 506.1001, L100.0100, L501.9520, L503.0106, L503.6550 #### [facility] [address] [place], [address] Hematocrit (Bld) [Volume fraction] 41.8 % Normal 37-47 [facility] Comment on above: Performed By: #### L 506.1001, L100.0100, L501.9520, L503.0106, L503.6550 #### [facility] [address] [place], [address] Hemoglobin (Bld) [Mass/Vol] 13.6 g/dL Normal 12.0-15.0 [facility] Comment on above: Performed By: #### L 506.1001, L100.0100, L501.9520, L503.0106, L503.6550 #### [facility] [address] [place], [address] IG% 0.100 Normal 0.0-0.9 [facility] Comment on above: Result Comment: IG% - Immature Granulocytes (promyelocytes, myelocytes and metamyelocytes) > 1% indicates that a LEFT SHIFT is Present. Performed By: #### L 506.1001, L100.0100, L501.9520, L503.0106, L503.6550 #### [facility] [address] [place], [address] Lymphocytes/100 WBC (Bld) 25.4 % Normal 19-41 [facility] Comment on above: Performed By: #### L 506.1001, L100.0100, L501.9520, L503.0106, L503.6550 #### [facility] [address] [place], [address] MCH (RBC) [Entitic mass] 29.4 pg Normal 27.0-32.0 [facility] [facility] Comment on above: Performed By: #### L 506.1001, L100.0100, L501.9520, L503.0106, L503.6550 #### [facility] [address] [place], [address] MCHC (RBC) [Mass/Vol] 32.5 g/dL Normal 32-36 [facility] Comment on above: Performed By: #### L 506.1001, L100.0100, L501.9520, L503.0106, L503.6550 #### [facility] [address] [place], [address] MCV (RBC) [Entitic vol] 90.5 fL Normal 81-99 [facility] Comment on above: Performed By: #### L 506.1001, L100.0100, L501.9520, L503.0106, L503.6550 #### [facility] [address] [place], [address] Monocytes/100 WBC (Bld) 7.8 % Normal 0-10 [facility] Comment on above: Performed By: #### L 506.1001, L100.0100, L501.9520, L503.0106, L503.6550 #### [facility] [address] [place], [address] Neutrophils/100 WBC (Bld) 62.7 % Normal 47-70 [facility] Comment on above: Performed By: #### L 506.1001, L100.0100, L501.9520, L503.0106, L503.6550 #### [facility] [address] [place], [address] Nucleated RBC (Bld) [#/Vol] 0 10*3/uL Normal 0-5 [facility] Comment on above: Performed By: #### L 506.1001, L100.0100, L501.9520, L503.0106, L503.6550 #### [facility] [address] [place], [address] Platelet mean volume (Bld) [Entitic vol] 10.4 fL Normal 6.2-12.0 [facility] Comment on above: Performed By: #### L 506.1001, L100.0100, L501.9520, L503.0106, L503.6550 #### [facility] [address] [place], [address] Platelets (Bld) [#/Vol] 332 10*3/uL Normal 150-450 [facility] Comment on above: Performed By: #### L 506.1001, L100.0100, L501.9520, L503.0106, L503.6550 #### [facility] [address] [place], [address] RBC (Bld) [#/Vol] 4.62 10*6/uL Normal 4.2-5.4 [facility] Comment on above: Performed By: #### L 506.1001, L100.0100, L501.9520, L503.0106, L503.6550 #### [facility] [address] [place], [address] RDW SD 43.6 fl Normal 35.1-43.9 [facility] Comment on above: Performed By: #### L 506.1001, L100.0100, L501.9520, L503.0106, L503.6550 #### [facility] [address] [place], [address] WBC (Bld) [#/Vol] 7.8 10*3/uL Normal 4.4-11.0 [facility] Comment on above: Performed By: #### L 506.1001, L100.0100, L501.9520, L503.0106, L503.6550 #### [facility] [address] [place], [address] Eosinophil percentageOrdered By: Gee Lucia on 09-07-2024 Eosinophils/100 WBC (Bld) 3.5 % 0-5 [facility] Erythrocyte distribution wid th ratioOrdered By: Gee Lucia on 09-07-2024 Erythrocyte distribution width (RBC) [Ratio] 13.2 % 11.6-14.6 [facility] Erythrocyte distribution wid th standard deviationOrdered By: Gee Lucia on 09-07-2024 Erythrocyte distribution width (RBC) [Ratio] 43.6 fl 35.1-43.9 [facility] Ferritinon 09-07-2024 Ferritin [Mass/Vol] 54 ng/mL Normal 22-378 [facility] Comment on above: Performed By: #### L 506.1001, L100.0100, L501.9520, L503.0106, L503.6550 #### [facility] [address] [place], [address] Hematocrit Auto (Bld) [Volum e fraction]Ordered By: Gee Lucia on 09-07-2024 Hematocrit (Bld) [Volume fraction] 41.8 % 37-47 [facility] Hemoglobin measurementOrdere d By: Gee Lucia on 09-07-2024 Hemoglobin (Bld) [Mass/Vol] 13.6 g/dL 12.0-15.0 [facility] Immature granulocytes/100 WB C Auto (Bld)Ordered By: Gee Lucia on 09-07-2024 Immature granulocytes/100 WBC (Bld) 0.100 % 0.0-0.9 [facility] Comment on above: IG% - Immature Granu locytes (promyelocytes, myelocytes and metamyelocytes) > 1% indicates that a LEFT SHIFT is Present. MCV (mean corpuscular volume ) determinationOrdered By: Gee Lucia on 09-07-2024 MCV (RBC) [Entitic vol] 90.5 fL 81-99 [facility] Mean corpuscular hemoglobin (MCH) determinationOrdered By: Gee Lucia on 09-07-2024 MCH (RBC) [Entitic mass] 29.4 pg 27.0-32.0 [facility] Mean corpuscular hemoglobin concentration (MCHC) determinationOrdered By: Gee Lucia on 09-07-2024 MCHC (RBC) [Mass/Vol] 32.5 g/dL 32-36 [facility] Mean platelet volume determi nationOrdered By: Gee Lucia on 09-07-2024 Platelet mean volume (Bld) [Entitic vol] 10.4 fL 6.2-12.0 [facility] Monocyte percentageOrdered B y: Gee Lucia on 09-07-2024 Monocytes/100 WBC (Bld) 7.8 % 0-10 [facility] Neutrophil percentageOrdered By: Gee Lucia on 09-07-2024 Neutrophils/100 WBC (Bld) 62.7 % 47-70 [facility] Nucleated red blood cell per centageOrdered By: Gee Lucia on 09-07-2024 Nucleated RBC/100 WBC (Bld) [Ratio] 0 % 0-5 [facility] Platelet countOrdered By: Al Lucia on 09-07-2024 Platelets (Bld) [#/Vol] 332 10*3/uL 150-450 [facility] RBC Auto (Bld) [#/Vol]Ordere d By: Gee Lucia on 05-22-2025 RBC (Bld) [#/Vol] 4.62 10*6/uL 4.2-5.4 [facility] Serum or plasma ferritin susi surement (mass/volume)Ordered By: Gee Lucia on 09-07-2024 Ferritin [Mass/Vol] 54 ng/mL 22-378 [facility] TSH DL <= 0.005 mIU/L QnOrde red By: Gee Lucia on 09-07-2024 TSH Qn 2.930 uIU/mL 0.300-4.200 [facility] Thyroid Stim Hormone (TSH)on 09-07-2024 TSH 2.930 uIU/mL Normal 0.300-4.200 [facility] Comment on above: Performed By: #### L 506.1001, L100.0100, L501.9520, L503.0106, L503.6550 #### [facility] [address] [facility] [place], [place], [id number] (461) Vitamin B12on 09-07-2024 Cobalamin (Vitamin B12) [Mass/Vol] 454 pg/mL Normal 180-914 [facility] Comment on above: Performed By: #### L 506.1001, L100.0100, L501.9520, L503.0106, L503.6550 #### [facility] [address] [place], [address] Vitamin B12 ser/plasOrdered By: Gee Lucia on 09-07-2024 Cobalamin (Vitamin B12) [Mass/Vol] 454 pg/mL 180-914 [facility] Vitamin D,25 Hydroxyon 09-07 Vitamin D 25-OH 72.8 ng/mL Normal 30-100 [facility] Comment on above: Result Comment: Joanne min D Status Deficiency: <20 ng/mL (50nmol/L) Insufficiency: 20-30 ng/mL (50-75 nmol/L) Sufficiency: 30-100 ng/mL (75-250 nmol/L) Toxicity: >100 ng/mL (>250 nmol/L) Performed By: #### L 506.1001, L100.0100, L501.9520, L503.0106, L503.6550 #### [facility] [address] [place], [address] White blood cell (WBC) count Ordered By: Gee Lucia on 09-07-2024 WBC (Bld) [#/Vol] 7.8 10*3/uL 4.4-11.0 [facility] Endocrinology Visit Reporton 09-04-2024 Endocrinology Visit Report [facility] [address] [place] [address] OFFICE VISIT Date of Service: 09/04/24 MR#: [id number] Acct: [id number] Name: HALIE WILKINS Rep #: [id number] : 1975 Provider: Donald Huerta Age/Sex: 49/F Location: [facility] [place] Status: Signed Intake Vital Signs 09/04/24 10:48 Height 5 ft 8.5 in Weight: 289 lb BMI 43.2 BP 143/87 H Blood Pressure Location Lt brachial Position Sitting Pulse 75 Pulse Source Monitor Pulse Oximetry (%) 98 Oxygen Delivery Method room air Intake Visit Reasons: Thyroid, PCOS Chief Complaint: Thyroid Is patient in pain?: No Allergies gluten Allergy (Severe, Verified 09/04/24 10:49) Rash nickel Allergy (Verified 09/04/24 10:49) Unknown Medications ???Medication ???Instructions ???Recorded ???Confirmed ???Type cholecalciferol (vitamin D3) 25 25 mcg PO ONCE 08/21/24 08/21/24 H istory mcg/drop (1,000 unit/drop) oral drops levothyroxine 150 mcg tablet 150 mcg PO QDAY #90 tabs 09/04/24 09/04/24 Rx (Unithroid) PFSH Medical History (Updated 09/15/24 @ 11:[address] 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 Thyroid disease Kidney stones Hypertension Migraines IBS (irritable bowel syndrome) Back problem Surgical History (Updated 08/21/24 @ 07:42 by Taye Nix RN) History of appendectomy Family History (Updated 08/21/24 @ 07:45 by Taye Nix RN) Father Diabetes Heart disease Hypertension Mother Heart disease Respiratory disease Grandfather Diabetes Social History (Updated 08/21/24 @ 07:43 by Taye Nix RN) Smoking Status: Never smoker alcohol intake: never substance use type: does not use frequency: 1-2 times per week HPI HPI Chief Complaint: Thyroid Details: HALIE WILKINS, is a 49 F who presents to the office today for evaluation and management of thyroid disease. She was diagnosed with hypothyroidism in 2005 at the time of . Post-, she had difficulty losing weight and she had irregular menses. She was on metformin for awhile, but had GI distress. She was switched to [place] thyroid about 5 years ago. She doesn't feel better on the [place]. She complains of bloating after eating gluten. She is restricting gluten currently. She also states that she is extra emotional, is still struggling with her weight and has low energy. She also has facial hair. [facility] is significant for thyroid disease in her mother, Diabetes in her Father and 3 of 4 Grandparents and a sister with GI troubles. ROS Const Constitutional: Positive for fatigue, weight change and change in appetite Eyes Eyes: No change in vision ENT ENT: No dizziness/vertigo or difficulty swallowing Cardio Cardiology: No chest pain at rest, chest pain with exertion, shortness of breath or palpitations Musc Musculoskeletal: Positive for myalgias; No abnormal gait, joint pain, numbness or tingling Neuro Neurology: No abnormal gait, memory loss, numbness or tingling Psych Psychiatric: Positive for anxiety, Positive for change in appetite, No memory loss, Positive for mood swings and No Thoughts of harming yourself/Others Resp Respiratory: No cough, chest congestion or shortness of breath Gastro GI: No abdominal pain, constipation, diarrhea or difficulty swallowing Genitourinary-Female: No burning urination Skin Skin: Positive for change in hair and excessive hair growth; No itchy eyes or wounds Endo Endocrine: Positive for fatigue and weight change Aller/Imm Allergy/Immunologic: No itchy eyes Exam Const General: cooperative, healthy appearing, comfortable, no acute distress, well developed and not cushingoid Nutritional Appearance: well nourished and obese Orientation: alert, awake and oriented x3 HENMT Head: normal to inspection Ears: hearing grossly normal bilaterally Nose: external nose normal Mouth: oral mucosae normal Eyes General: appearance normal, both eyes and all related structures Alignment and Position: alignment normal Periorbital: periorbital findings normal Eyelids: eyelids normal Conjunctivae: conjunctivae normal Neck Neck: normal visual inspection Neck mass: No Thyroid: diffusely enlarged (mild) Lymphatic: no lymphadenopathy noted Chest Chest palpation inspection: normal inspection of the chest Resp Effort Inspection: normal respiratory effort, able to speak in complete sentences, symmetric chest movement, no audible wheezes and no cough Cardio Rate: regular rate Rhythm: regular rhythm Pulses: posterior tibial pulses present Skin General: no rashes or lesions noted Neuro General: patient alert, patient awake and patient oriented x3 Cranial Nerves: CN's (more content not included)... Normal [facility] Basic Metabolic Profile (BMP )on 05-17-2024 BUN/CRE 15.6 RATIO Normal 10-20 [facility] Comment on above: Performed By: #### L 500.2500, L501.9520 #### [facility] [address] [place], [address] CA,Total 9.3 mg/dL Normal 8.5-10.1 [facility] Comment on above: Performed By: #### L 500.2500, L501.9520 #### [facility] [address] [place], [address] Chloride [Moles/Vol] 107 mmol/L Normal 98-107 [facility] Comment on above: Performed By: #### L 500.2500, L501.9520 #### [facility] [address] [place], [address] CO2 [Moles/Vol] 26.0 mmol/L Normal 21.0-32.0 [facility] Comment on above: Performed By: #### L 500.2500, L501.9520 #### [facility] [address] [place], [address] Creatinine [Mass/Vol] 0.77 mg/dL Normal 0.55-1.02 [facility] Comment on above: Result Comment: The validity of the calculated GFR GFRAA in patients over 70 years has not been determined. Clinical correlation is essential. Performed By: #### L 500.2500, L501.9520 #### [facility] [address] [place], [address] EST GFR - AA 103 mL/min Normal >60 [facility] Comment on above: Result Comment: Afri can Liberian GFR Calc Performed By: #### L 500.2500, L501.9520 #### [facility] [address] [place], [address] GAP 8 Normal 5-15 [facility] Comment on above: Performed By: #### L 500.2500, L501.9520 #### [facility] [address] [place], [address] GFR/1.73 sq M.predicted among non-blacks MDRD (S/P/Bld) [Vol rate/Area] 85 mL/min/{1.73_m2} Normal >60 [facility] Comment on above: Result Comment: Non- GFR Calc Performed By: #### L 500.2500, L501.9520 #### [facility] [address] [place], [address] Glucose [Mass/Vol] 109 mg/dL High 74-106 [facility] Comment on above: Result Comment: Fast ing Glucose result from 100 to 125 mg/dL suggests IMPAIRED HOMEOSTASIS per A.D.A. criteria. Performed By: #### L 500.2500, L501.9520 #### [facility] [address] [place], [address] Potassium [Moles/Vol] 3.6 mmol/L Normal 3.5-5.1 [facility] Comment on above: Performed By: #### L 500.2500, L501.9520 #### [facility] [address] [place], [address] Sodium [Moles/Vol] 141 mmol/L Normal 136-145 [facility] Comment on above: Performed By: #### L 500.2500, L501.9520 #### [facility] [address] [place], [place], [address] Urea nitrogen [Mass/Vol] 12 mg/dL Normal 7-18 [facility] Comment on above: Performed By: #### L 500.2500, L501.9520 #### [facility] [address] [place], [address] Blood urea nitrogen (BUN)/cr eatinine ratioOrdered By: Yolie Car on 05-17-2024 Urea nitrogen/Creatinine [Mass ratio] 15.6 mg/mg 10-20 [facility] Carbon dioxide measurementOr dered By: Yolie Car on 05-17-2024 CO2 [Moles/Vol] 26.0 mmol/L 21.0-32.0 [facility] Chloride measurementOrdered By: Yolie Car on 05-17-2024 Chloride [Moles/Vol] 107 mmol/L 98-107 [facility] Glomerular filtration rate ( GFR) estimationOrdered By: Yolie Car on 05-17-2024 GFR/1.73 sq M.predicted among non-blacks MDRD (S/P/Bld) [Vol rate/Area] 85 mL/min/{1.73_m2} >60 [facility] Comment on above: Non- GFR Calc Glucose measurementOrdered B y: Yolie Car on 05-17-2024 Glucose [Mass/Vol] 109 mg/dL High 74-106 [facility] Comment on above: Fasting Glucose resu lt from 100 to 125 mg/dL suggests IMPAIRED HOMEOSTASIS per A.D.A. criteria. Potassium measurementOrdered By: Yolie Car on 05-17-2024 Potassium [Moles/Vol] 3.6 mmol/L 3.5-5.1 [facility] Serum anion gap measurementO rdered By: Yolie Car on 05-17-2024 Anion gap [Moles/Vol] 8 mmol/L 5-15 [facility] Serum or plasma calcium duke urement (mass/volume)Ordered By: Yolie Car on 05-17-2024 Calcium [Mass/Vol] 9.3 mg/dL 8.5-10.1 [facility] Serum or plasma creatinine m easurement (mass/volume)Ordered By: Yolie Car on 05-17-2024 Creatinine [Mass/Vol] 0.77 mg/dL 0.55-1.02 [facility] Comment on above: The validity of the calculated GFR & GFRAA in patients over 70 years has not been determined. Clinical correlation is essential. Serum or plasma thyroid stim ulating hormone (TSH) measurement (units/volume)Ordered By: Yolie Car on 05-17-2024 TSH Qn 3.270 uIU/mL 0.358-3.740 [facility] Serum or plasma urea nitroge n measurement (mass/volume)Ordered By: Yolie Car on 05-17-2024 Urea nitrogen [Mass/Vol] 12 mg/dL 7-18 [facility] Sodium levelOrdered By: Sang Car on 05-17-2024 Sodium [Moles/Vol] 141 mmol/L 136-145 [facility] Thyroid Stim Hormone (TSH)on 05-17-2024 TSH 3.270 uIU/mL Normal 0.358-3.740 [facility] Comment on above: Performed By: #### L 500.2500, L501.9520 #### [facility] [place], [address] CNOVon 05-15-2024 CNOV Office Visit (ALMAE ) HALIE WILKINS ([id number]) 1975 F [place] Date Time Provider Department 05/15/24 9:00 AM PYLE, TAMANNA NRSLME During your visit today, we recorded the following information about you: Pulse Blood pressure Weight Height 80/minute 143/91 129.6 kg 1.727 m Tamanna Pyle APRN.CNP 05/15/2024 10:31 AM Signed [facility] Follow-up/Established patient visit Date of last visit: 03/15/23 Impression: G47.33 DEE (obstructive sleep apnea) 47 yo female who presents for annual follow up for DEE on CPAP with use and benefits noted. She does experience mask leak when on her side and may be interested in a different option. She also experiences her mouth opening as of recent without an identifiable cause. Discussed adding a chin strap and nasal spray now that mouth is opening in her sleep. Flonase during times of congestion and reviewed how to use if needed. Reviewed sleep hygiene and good sleep practices to follow (see AVS). Plan: - Continue Auto CPAP at 8-20 cmH2O. - Chin strap - Try Airfit P30i - Remember to clean your mask and equipment regularly, as directed. - You should be eligible for new supplies approximately every 3-6 months, depending on your insurance coverage. Contact your Durable Medical Equipment (DME) company for new supplies as needed. - Add magnesium PRN - see AVS Follow up in 1 year(s). Tamanna Pyle APRN.CNP HPI: 48 yo female here for follow up for DEE on PAP therapy with nightly use and benefits noted. She does endorse some sleep behaviors that can be modified to improve sleep performance overall. SLEEP APNEA Sleep apnea type : DEE, Most Recent Apnea-Hypopnea Index (AHI): 74 Treatment : PAP therapy DME: [facility] PAP History: Current PAP settin-20 cm H2O. Difficulties with AutoPAP: None Reviewed objective PAP compliance data: 04/13/24 to 05/12/24 Compliance download: 80% >=4 hours Average use: 5 hours 16 minutes 90/95th percentile pressure: 12.1 Leaks 1.1, residual AHI 0.2 Mask type: nasal pillow interface Mask issues: None Uses chin strap: No Uses ramp function: Yes Uses humidity: Yes There is a perceived benefit by the patient SLEEP-WAKE SCHEDULE Bedtime: 7-9 PM while watching TV Wakes about midnight and goes to her bed Will fall back to sleep within minutes or up to an hour Activities before bed: watching TV in the living room Wake time: 5 AM, with an alarm. Average total sleep time (in a 24 hour period): up to ~ 9 hours. Sleep behaviors: None SLEEP FUNCTIONAL OUTCOME MEASURES: reviewed and uploaded. PAST MEDICAL HISTORY Diagnosis Date DEE (obstructive sleep apnea) 01/30/2009 PSG and titration done @ Dr Curtis office - AHI 74 - retitration done 2012 @ [facility] DEE on CPAP 04/2016 AutoPAP 8-20 DME [facility] PCOS (polycystic ovarian syndrome) PSH, SH: Reviewed REVIEW OF SYSTEMS SLEEP RELATED ROS GENERAL: See HPI HEENT: negative nasal congestion RESPIRATORY: negative dyspnea CARDIOVASCULAR: negative chest pain : negative nocturia SKIN: negative mask irritation PSYCH: negative depression and suicidal thoughts ENDOCRINE: positive thyroid problems NEURO: negative cognitive changes All other systems reviewed and are negative. ALLERGIES Allergen Reactions Nickel Unknown CURRENT MEDICATIONS: CPAP Supplies: AutoPAP 8-20 cmH2O, suitable mask, humidity, heated tubing (STEFAN), filters. Lifetime supplies. Dx: G47.33 cholecalciferol, vitamin D3, (VITAMIN D3 ORAL) Take 5,000 Units by mouth once daily. thyroid,pork (ARMOUR THYROID ORAL) Take 30 mg by mouth once daily. Unsure of dose CPAP/BIPAP/OTHER Supplies: Settings 8 - 20 cm H2O, suitable mask per pt preference, chin strap, head gear, humidity, tubing, lifetime supplies. G47.33 DEE Vital signs: BP 143/91 (BP Site: Right Arm, BP Position: Sitting, BP Cuff Size: Large Adult) Pulse 80 Ht 172.7 cm (5' 8) Wt 129.6 kg (285 lb 11.5 oz) LMP 03/21/2024 (Within Days) SpO2 98% BMI 43.44 kg/m? PHYSICAL EXAM: General appearance: NAD, attire appropriate per season Mental status: A AND O X3 Speech: Clear AND Coherent Constitutional: Overweight Skin: W/D/I on exposed skin Neuro: Gait stable, hearing intact to conversation Impression: G47.33 DEE (obstructive sleep apnea) (primary encounter diagnosis) 48 yo female here for follow up for DEE on PAP therapy with nightly use and benefits noted. She does endorse some sleep behaviors that can be modified to improve sleep performance overall. Discussed with patient: the physiology of OSAS, medical conditions associated with OSAS (DM, HTN, CAD, Depression, Stroke, Headache, DE) and treatment options (UPPP, Dental appliances, CPAP). Advised patient to avoid activities that could harm self or others when tired/sleepy, inclu (more content not included)... [facility]NRSLME[facility] HALIE WILKINS ([id number]) 1975 F U[place] Date Time Provider Department 05/15/24 [facility] [place] [facility] [place] During your visit today, we recorded the following information about you: Main Teixeira OCCA 05/15/2024 3:11 PM Signed Faxed CPAP Rx and e-signed office note to [facility] at [phone]. Allergies As of Date: 05/15/2024 Noted Allergy Reaction NICKEL 06/25/2015 16 - Unknown Date Reviewed: 05/15/2024 Reviewed by: Tamanna Pyle APRN.CYLINDER SANDER OPERATOR - Fully Assessed Reason for Visit: Orders [771] Cmt: Faxed CPAP Rx and e-signed office note to [facility] at [phone]. Prescriptions as of 05/15/2024 - CPAP/BIPAP/OTHER Supplies: Settings 8 - 20 cm H2O, suitable mask per pt preference, chin strap, head gear, humidity, tubing, lifetime supplies. G47.33 DEE - CPAP Supplies: AutoPAP 8-20 cmH2O, suitable mask, humidity, heated tubing (STEFAN), filters. Lifetime supplies. Dx: G47.33 - cholecalciferol, vitamin D3, (VITAMIN D3 ORAL) Take 5,000 Units by mouth once daily. - thyroid,pork (ARMOUR THYROID ORAL) Take 30 mg by mouth once daily. Unsure of dose Problem List As Of Date 05/15/2024 Noted Resolved DEE (obstructive sleep apnea) [G47.33] 04/29/2016 Submucous uterine fibroid [D25.0] 03/30/2024 Menorrhagia with regular cycle [N92.0] 03/30/2024 Encounter Status:Closed by MAIN TEIXEIRA on 05/15/24 [facility] 04-03-2024 CNPN Telephone (OBGYWM) HALIE WILKINS ([id number]) 1975 F [place] Date Time Provider Department 04/03/24 OTF OLIVARES OBGYWM During your visit today, we recorded the following information about you: Jessica Garcia RN 04/03/2024 12:49 PM Signed ----- Message from Otf Olivares MD sent at 04/03/2024 12:24 PM EST ----- Do we have surgery sheet for her? Jessica Garcia RN 04/03/2024 12:53 PM Addendum Surgery sheet filled out by RR for hysteroscopy DANDC/Fibroid resection. Placed in surgery schedulers inbox. Jessica Garcia RN Allergies As of Date: 04/03/2024 Noted Allergy Reaction NICKEL 06/25/2015 16 - Unknown Date Reviewed: 03/30/2024 Reviewed by: Betsy Smith MA - Fully Assessed Prescriptions as of 04/13/2024 - doxycycline monohydrate (MONODOX) 100 mg capsule Take 1 capsule by mouth two times a day for 10 days. - CPAP Supplies: AutoPAP 8-20 cmH2O, suitable mask, humidity, heated tubing (STEFAN), filters. Lifetime supplies. Dx: G47.33 - cholecalciferol, vitamin D3, (VITAMIN D3 ORAL) Take 5,000 Units by mouth once daily. - thyroid,pork (ARMOUR THYROID ORAL) Take 30 mg by mouth once daily. Unsure of dose Problem List As Of Date 04/03/2024 Noted Resolved DEE (obstructive sleep apnea) [G47.33] 04/29/2016 Submucous uterine fibroid [D25.0] 03/30/2024 Menorrhagia with regular cycle [N92.0] 03/30/2024 Encounter Status:Closed by OTF OLIVARES on 04/13/24 Normal [facility] CNOVon 03-30-2024 CNOV Office Visit (OBGYWM ) HUMPHREYHALIE Brody Amadou ([id number]) 1975 F [facility] Date Time Provider Department 03/30/24 2:00 PM OTF OLIVARES OBGYWM During your visit today, we recorded the following information about you: Blood pressure Weight Last Period 138/84 127.5 kg 03/21/24 Otf Olivares MD 03/30/2024 2:43 PM Signed Halie is a 48 year old who presents today for an endometrial biopsy for abnormal uterine bleeding. test: negative UNIVERSAL PROTOCOL / SAFETY CHECKLIST Procedure to be Performed: EMB Sign In: A Moment of CARE was completed. Personnel directly involved with the procedure wore the appropriate PPE (Personal Protective Equipment). Patient/Surrogate Stated/Verified: PATIENT VERIFIED(optional for EMERGENT procedures): Patient name, Date of , Relevant allergies, and The intended procedure Time Out Communication: Intended patient and procedure match the source documents. Consent documented and matches the intended procedure. No implant(s) inserted. Sign Out: SIGN OUT (optional for EMERGENT procedures): All specimen containers correctly labeled. All instruments, equipment, possible retained foreign bodies accounted for. Otf Olivares MD PROCEDURE: EXTERNAL GENITALIA: Normal in appearance without lesions VAGINA: Normal in appearance without lesions BIOPSY: Speculum placed into the vagina with excellent visualization of the cervix. Cervix cleaned with betadine. Anterior lip of cervix grasped with single toothed tenaculum. Uterus sounded to 8 cm. Pipelle inserted into the uterus without difficulty and endometrial biopsy obtained. Specimen labeled and sent to pathology. Procedure Summary: Patient tolerated procedure well. ASSESSMENT: abnormal uterine bleeding PLAN: Specimens labeled and sent to Pathology. Post-procedure instructions reviewed and written material given to the patient. would like to consider hysteroscopy [facility] with fibroid resection MD Shade Mahan Toni, [place] 03/30/2024 2:07 PM Addendum YOUR RECOVERY After your biopsy you may have: Vaginal bleeding (less than a normal menstrual period) Mild cramping Do NOT put anything in the vagina for 1 week after your endometrial biopsy. This includes: tampons douches and refraining from having sexual intercourse If you have any discomfort, you may take an over the counter pain medication (motrin, advil, ibuprofen, tylenol, etc). If this does not relieve your discomfort, contact the office. It is okay to wear a sanitary pad until the discharge and spotting stops. RISKS Although problems seldom occur with endometrial biopsies, there can be some complications. You may feel faint during and shortly after the procedure as well as have some bleeding after the procedure. There is also a risk of infection after the procedure. These complications are rare and can be easily treated. You should contact you doctor is you have any of the following: Heavy bleeding (more than your normal period) Bleeding with clots Severe abdominal pain Fever (more than 100.4F) Foul smelling vaginal discharge RESULTS We will have the results of your biopsy in 1-2 weeks. If you do not hear the results of your biopsy after 2 weeks, please contact the office for the results. If you have any additional questions or concerns please do not hesitate to contact the office. YOUR RECOVERY After your biopsy you may have: Vaginal bleeding (less than a normal menstrual period) Mild cramping Do NOT put anything in the vagina for 1 week after your endometrial biopsy. This includes: tampons douches and refraining from having sexual intercourse If you have any discomfort, you may take an over the counter pain medication (motrin, advil, ibuprofen, tylenol, etc). If this does not relieve your discomfort, contact the office. It is okay to wear a sanitary pad until the discharge and spotting stops. RISKS Although problems seldom occur with endometrial biopsies, there can be some complications. You may feel faint during and shortly after the procedure as well as have some bleeding after the procedure. There is also a risk of infection after the procedure. These complications are rare and can be easily treated. You should contact you doctor is you have any of the following: Heavy bleeding (more than your normal period) Bleeding with clots Severe abdominal pain Fever (more than 100.4F) Foul smelling vaginal discharge RESULTS We will have the results of your biopsy in 1-2 weeks. If you do not hear the results of your biopsy after 2 weeks, please contact the office for the results. If you have any additional questions or concerns please do not hesitate to contact the office. Otf Olivares MD 04/03/2024 12:24 PM Signed Addended by: OTF OLIVARES on: 04/03/2024 12:24 PM Modul (more content not included)... Normal [facility] SURGICAL PATHOLOGYon 024 CASE REPORT Normal [facility] Comment on above: Order Comment: Speci men Type: TISSUE SPECIMENOrdering Facility: [facility] Address: [address] [place] [address] Result Comment: Surg ical Pathology Report Case: [id number] Authorizing Provider: Otf Olivares MD Collected: 03/30/2024 02:48 PM Ordering Location: OB/Gynecology Received: 03/30/2024 04:20 PM Pathologist: Rocco Manning MD Specimen: Endometrium, Biopsy Performed By: #### S ####JOE LABORATORYCLIA [id number] [address] LABCLIA [id number] [address] OF [place] CLINICAL HISTORY menorrrhagia with regular cycle Normal [facility] Comment on above: Order Comment: Speci men Type: TISSUE SPECIMENOrdering Facility: [facility] Address: [address] [place] [address] Performed By: #### S ####JOE LABORATORYCLIA [id number] [address] OF [facility] LABCLIA [id number] [address] OF [place] FINAL DIAGNOSIS Normal [facility] Comment on above: Order Comment: Speci men Type: TISSUE SPECIMENOrdering Facility: [facility] Address: [address] [place] [address] Result Comment: Endo metrium, biopsy: - Proliferative endometrium with chronic endometritis. MJM 03/31/2024 Performed By: #### S ####JOE LABORATORYCLIA [id number] [address] LABCLIA [id number] [address] OF [place] FINAL PERFORMING LAB Normal [facility] Comment on above: Order Comment: Speci men Type: TISSUE SPECIMENOrdering Facility: [facility] Address: [address] [place] [address] Result Comment: Diag nostic interpretation performed at [facility], [address] [place] [address] CLIA# [id number] Regional Business Development Manager: Rocco Manning M.D. Performed By: #### S ####JOE LABORATORYCLIA [id number] [address] LABCLIA [id number] [address] OF [facility] GROSS DESCRIPTION Normal [facility] Comment on above: Order Comment: Speci men Type: TISSUE SPECIMENOrdering Facility: [facility] Address: [address] [place] [address] Result Comment: A. E ndometrium, Biopsy Received in formalin are multiple nunez-white to brown, soft feathery segments of tissue admixed with mucinous material aggregating to 2.1 x 2.0 x 0.1 cm. Totally submitted in one cassette. DB March 30, 2024 8:48 PM Gross examination performed at [facility], [address] [place] [address] Performed By: #### S ####JOE LABORATORYCLIA [id number] [address] STATES OF [facility] LABCLIA [id number] [facility] [id number] [place], [place] [id number] [place] Pelvison 03-13-2024 Indication menorrhagia with regular cycle Impression Anteverted fibroid uterus that measures 103 mm x 50 mm x 66 mm. The largest fibroids are described below. Of note, there is an 18 x 19 x 19 mm fibroid that appears to have a submucosal component. Endometrium measures 5 mm. Both ovaries are visualized and appear normal. No adnexal masses were observed. There is no free fluid visualized in the peritoneal cavity. Recommendations Consider endometrial evaluation as clinically indicated. History Medical History Surgery: section Menstrual History LMP on 02/22/2024. Bleeding: menorrhagia Method Transabdominal, transvaginal, 3D ultrasound examination, Color Doppler examination. View: Suboptimal view: due to uterine orientation Uterus Uterus: Visualized Uterus position: anteverted Description of uterine malformations: none Myometrium: heterogeneous Endometrium: homogenous Cervix details: cystic lesions identified suggesting superficial Nabothian cysts Uterus length 103 mm Uterus width 66 mm Uterus height 50 mm Uterus Vol 175.8 cm Endometrial thickness, total 5.0 mm Fibroids: Fibroids identified Uterine fibroid D1 18 mm Uterine fibroid D2 19 mm Uterine fibroid D3 19 mm Uterine fibroid mean 18.4 mm Uterine fibroid vol 3.250 cm Uterine fibroids findings: Left lateral posterior wall. intramural vs Submucous, visualized without fluid enhancement Right Ovary Rt ovary: Visualized Rt ovary morphology: premenopausal normal follicular Rt ovary D1 26 mm Rt ovary D2 15 mm Rt ovary D3 15 mm Rt ovary Vol 3.0 cm Left Ovary Lt ovary: Visualized Lt ovary morphology: premenopausal normal follicular Lt ovary D1 27 mm Lt ovary D2 21 mm Lt ovary D3 24 mm Lt ovary Vol 6.8 cm Cul de Sac Visualized. no free fluid visualized Performed By: Tiffany Peterson RDMS Read By: Caroline Posada M.D. MATERNAL MEDICINE [facility] CBC panel Auto (Bld)on 03-10 Erythrocyte distribution width (RBC) [Ratio] 12.8 % Normal 11.5-15.0 [facility] Comment on above: Order Comment: Speci men Type: BLOOD SPECIMENOrdering Facility: [facility] Address: [address] [place] [address] Performed By: #### 5 8410-2 ####[facility] AMIRA [id number] [place] [address] [place] Hematocrit (Bld) [Volume fraction] 39.8 % Normal 36.0-46.0 [facility] Comment on above: Order Comment: Speci men Type: BLOOD SPECIMENOrdering Facility: [facility] Address: [address] [place] [address] Performed By: #### 5 8410-2 ####[facility] [id number] [place] [address] [place] Hemoglobin (Bld) [Mass/Vol] 13.2 g/dL Normal 11.5-15.5 [facility] Comment on above: Order Comment: Speci men Type: BLOOD SPECIMENOrdering Facility: [facility] Address: [address] [place] [address] Performed By: #### 5 8410-2 ####[facility] [id number] [place] [address] [place] MCH (RBC) [Entitic mass] 29.6 pg Normal 26.0-34.0 [facility] Comment on above: Order Comment: Speci men Type: BLOOD SPECIMENOrdering Facility: [facility] Address: [address] [place] [address] Performed By: #### 5 8410-2 ####[facility]ITALNCLIA [id number] [place] [address] [place] MCHC (RBC) [Mass/Vol] 33.2 g/dL Normal 30.5-36.0 [facility] Comment on above: Order Comment: Speci men Type: BLOOD SPECIMENOrdering Facility: [facility] Address: [address] [place] [address] Performed By: #### 5 8410-2 ####[facility] ADRIANNAWNCLIA [id number] [place] [address] [place] MCV (RBC) [Entitic vol] 89.2 fL Normal 80.0-100.[address] [facility] Comment on above: Order Comment: Speci men Type: BLOOD SPECIMENOrdering Facility: [facility] Address: [address] [place] [address] Performed By: #### 5 8410-2 ####[facility] [id number] [place] [address] [place] Nucleated RBC (Bld) [#/Vol] 10*3/uL Normal <0.01 [facility] Comment on above: Order Comment: Speci men Type: BLOOD SPECIMENOrdering Facility: [facility] Address: [address] [place] [address] Performed By: #### 5 8410-2 ####[facility] [id number] [place] [address] [place] Platelet mean volume (Bld) [Entitic vol] 10.5 fL Normal 9.0-12.7 [facility] Comment on above: Order Comment: Speci men Type: BLOOD SPECIMENOrdering Facility: [facility] Address: [address] [place] [address] Performed By: #### 5 8410-2 ####[facility] [id number] [place] [address] [place] Platelets (Bld) [#/Vol] 324 10*3/uL Normal 150-400 [facility] Comment on above: Order Comment: Speci men Type: BLOOD SPECIMENOrdering Facility: [facility] Address: [address] [place] [address] Performed By: #### 5 8410-2 ####[facility]ITAL[facility]CL[facility] [id number] [place] [address] [place] RBC (Bld) [#/Vol] 4.46 10*6/uL Normal 3.90-5.20 [facility] Comment on above: Order Comment: Speci men Type: BLOOD SPECIMENOrdering Facility: [facility] Address: [address] [place] [address] Performed By: #### 5 8410-2 ####[facility] [id number] [place] [address] [place] WBC (Bld) [#/Vol] 7.92 10*3/uL Normal 3.70-11.00 [facility] Comment on above: Order Comment: Speci men Type: BLOOD SPECIMENOrdering Facility: [facility] Address: [address] [place] [address] Performed By: #### 5 8410-2 ####[facility] [id number] [place] [address] [place] Iron and Iron binding capaci ty panel 03-10-2024 Iron [Mass/Vol] 92 ug/dL Normal 41-186 [facility] Comment on above: Order Comment: Speci men Type: BLOOD SPECIMENOrdering Facility: [facility] Address: [address] [place] [address] Performed By: #### 5 0190-8 ####[facility] LABCLIA [id number] [address] [place] Iron binding capacity [Mass/Vol] 343 ug/dL Normal 232-386 [facility] Comment on above: Order Comment: Speci men Type: BLOOD SPECIMENOrdering Facility: [facility] Address: [address] [place] [address] Performed By: #### 5 0190-8 ####[facility] LABCLIA [id number] [place] [address] [place] Iron/TIBC [Molar ratio] 26.8 % Normal 15.0-57.[address] [facility] Comment on above: Order Comment: Speci men Type: BLOOD SPECIMENOrdering Facility: [facility] Address: [address] [place] [address] Performed By: #### 5 0190-8 ####[facility] LABCLIA [id number] [address] [place] [address] [place] US Pelvison 03-10-2024 Radiology Study observation (narrative) [facility] CNOVon 03-02-2024 CNOV Office Visit (OBGYWM ) HALIE WILKINS ([id number]) 1975 F [facility] Date Time Provider Department 03/02/24 11:30 AM OTF OLIVARES OBGYWM During your visit today, we recorded the following information about you: Blood pressure Weight Height Last Period 136/88 127.5 kg 1.664 m 02/22/24 Otf Olivares MD 03/02/2024 11:10 AM Signed Halie is a 48 year old who presents for an annual gynecologic exam without complaints. Did have a rash or irritation over her c/s scar under pannus last week. Has been using a natural cream on it and that has improved. Bleeding heavier, some clots, changes protection more frequently but doesn't have to change at night. Some clots. Menses: Menses used to be 3 days now more like a week w/ some very heavy days. . Contraception: vasectomy HPV vaccine: No Last Pap: 12/09/2021 normal HPV: 12/05/2021 negative OB History T1 L0 SAB0 IAB0 Ectopic0 Multiple0 Live Births0 Comment: Her biological child is , she has an 9 yr old adopted son. 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 Comments: Sexual Activity: Yes; Male Contraception: Vasectomy PAST MEDICAL HISTORY Diagnosis Date DEE (obstructive sleep apnea) 01/30/2009 PSG and titration done @ Dr Curtis office - AHI 74 - retitration done 2012 @ [facility] DEE on CPAP 04/2016 AutoPAP 8-20 D[facility] Rosanna PCOS (polycystic ovarian syndrome) PAST SURGICAL HISTORY Procedure Laterality Date APPENDECTOMY 2012 SECTION HX 01/14/2006 KIDNEY STONE SURGERY HX FAMILY HISTORY Problem Relation Age of Onset Heart Mother Heart Father Diabetes Father Macular Degen Sister other (pcos) Sister SOCIAL HISTORY Social History Tobacco Use Smoking status: Never Smokeless tobacco: Never Vaping Use Vaping status: Never Used Substance Use Topics Alcohol use: Never Drug use: Never REVIEW OF SYSTEMS Abdomen: No abdominal pain, nausea, vomiting, diarrhea, or constipation. No bloating, early satiety, indigestion, or increased flatulence. Bladder: No dysuria, gross hematuria, urinary frequency, urinary urgency, or incontinence. Breast: No breast lumps, nipple d/c, overlying skin changes, redness or skin retraction. Allergies and current medication updated:Yes SENSITIVE EXAM: The sensitive examination was discussed with the Patient or Patient's Authorized Tubing Tester. As applicable, any other physician, advance practice provider, medical student, or other health professional student that will be observing or involved in the sensitive examination for educational or training purposes was discussed with the Patient or Authorized Tubing Tester. The Patient or Authorized Tubing Tester has agreed to proceed with the sensitive examination. (Sensitive examination includes inspection and/or palpation of the breasts, pelvis, prostate and anorectal regions). EXAM: BP 136/88 Ht 5' 5.5 (1.66m) Wt 281 lb (127.5kg) LMP 02/22/2024 BMI 46.03 kg/(m2). GENERAL: pleasant, female in no apparent distress HEENT: Normocephalic, atraumatic, mucus membranes moist, and no lesions NECK: Supple, full range of motion, no adenopathy, and thyroid normal DERMATOLOGY: Normal, without lesions, non-icteric, and non-hirsute BREAST: soft, non-tender, symmetric, no dominant mass, normal nipple-areolar complex, no lymphadenopathy, and no nipple discharge CHEST: Normal inspiratory effort ABDOMEN: soft, non-tender, and no masses PELVIC: external genitalia normal, normal Bartholin's glands, urethra, Quitman's glands, no vulvar lesions, no cervical lesions, good vaginal support, physiologic discharge present, normal appearing perineal body and perianal region BIMANUAL: uterus normal size, shape and consistency, no adnexal masses, and non-tender RECTOVAGINAL: deferred. NEURO: alert and oriented x3,exam grossly non-focal EXTREMITIES: normal ASSESSMENT/PLAN: 1) Health maintenance: Pap/HPV up to date. Mammogram up to date colon cancer screening reviewed, 2) Contraception: vasectomy. Contraceptive options reviewed and information provided. 3) STD screening: Declined STD check. 4) Follow up one year or sooner as needed menorrhagia, h/o hypothyroidism and followed by endocrine so up to date w/ testing for that. EMB and pelvic US ordered. F/u for EMB Otf Olivares MD Allergies As of Date: 03/02/2024 Noted Allergy Reaction NICKEL 06/25/2015 16 - Unknown Date Reviewed: 03/02/2024 Reviewed by: Otf Olivares MD - Fully Assessed Reason for Visit: Yearly Exam With Mammogram [188] Primary Visit Diagnosis:Encounter for gynecological examination (general) (routine) without abnormal findings [Z01.419] Other Visit Diagnoses:Encounter for screening mammogram for breast c (more content not included)... Normal [facility] EVIE SCREENING W TOMOon 03-02 EVIE SCREENING W PABLO * * *Final Report* * * DATE OF EXAM: Mar 02 2024 9:59AM WRW [id number] - EVIE SCREENING W PABLO / PROCEDURE REASON: Encounter for screening mammogram for malignant neoplasm of breast * * * * Physician Interpretation * * * * RESULT: [facility] [place] [address] HISTORY: Patient is 48 years old and is seen for screening and is asymptomatic in both breasts. Patient states no personal history of breast cancer. Patient states no personal history of other cancers. COMPARISON STUDIES: The present examination has been compared to prior imaging studies dated 01/01/2022 (mammogram), 02/03/2022 (mammogram), 03/05/2022 (mammogram), 11/24/2022 (mammogram) and 06/08/2023 (mammogram). MAMMOGRAM TECHNIQUE: The study was acquired using full field digital technology and interpreted from soft copy. Digital Breast Tomosynthesis (DBT) images were obtained and used to assist in the interpretation of this examination. Computer-aided detection was utilized by the radiologist in the interpretation of this examination. MAMMOGRAM FINDINGS: The breasts are heterogeneously dense, which may obscure small masses. There are scattered benign appearing calcifications in both breasts. There are no significant changes from the prior study. No suspicious masses, calcifications or other abnormalities are seen in either breast. IMPRESSION: There is no mammographic evidence of malignancy. Routine screening mammogram is recommended. Annual mammogram will be due in 1 year. BI-RADS Category 2: Benign RISK: Based on the Tyrer-Cuzick (TC) risk assessment model, this patient has a 14.5% lifetime risk of developing breast cancer, meaning they are at average risk for developing breast cancer. However, this is only an estimate based on available history provided on the patient's questionnaire. We encourage all patients to talk with their providers about these results, further recommendations for managing breast health, and appropriate supplemental screening options if the patient has dense breast tissue. Interpreting Radiologist: Ben Infante M.D. Electronically signed on: 03/03/2024 Hooker Off: KAREN Transcrialiyah Date/Time: Mar 02 2024 9:49A Dictated by: BEN INFANTE MD This examination was interpreted and the report reviewed and electronically signed by: BEN INFANTE MD on Mar 03 2024 9:38AM EST [id number] Normal [facility] DBT Breast - right diagnosti c for implanton 06-08-2023 [facility] Basophil percentageOrdered B y: Yolie Car on 04-14-2023 Chloride [Moles/Vol] 107 mmol/L 98-107 [facility] Glucose [Mass/Vol] 103 mg/dL 74-106 [facility] Comment on above: Fasting Glucose resu lt from 100 to 125 mg/dL suggests IMPAIRED HOMEOSTASIS per A.D.A. criteria. Potassium [Moles/Vol] 3.5 mmol/L 3.5-5.1 [facility] Sodium [Moles/Vol] 142 mmol/L 136-145 [facility] Laboratory - Chemistry and C hemistry - challengeOrdered By: Yolie Car on 04-14-2023 CO2 [Moles/Vol] 28.0 mmol/L 21.0-32.0 [facility] Cobalamin (Vitamin B12) [Mass/Vol] 430 pg/mL 211-911 [facility] Urea nitrogen/Creatinine [Mass ratio] 11.0 mg/mg 10-20 [facility] No Panel InformationOrdered By: Yolie Car on 04-14-2023 Estimated GFR (MDRD) Amer 111 mL/min >60 [facility] Comment on above: GFR Calc Estimated GFR (MDRD) Non-Af Amer 92 mL/min >60 [facility] Comment on above: Non- GFR Calc Thyroid Stimulating Hormone (TSH) 3.18 uIU/mL 0.358-3.74 [facility] Serum or plasma calcium duke urement (mass/volume)Ordered By: Yolie Cra on 04-14-2023 Calcium [Mass/Vol] 8.7 mg/dL 8.5-10.1 [facility] Serum or plasma creatinine m easurement (mass/volume)Ordered By: Yolie Car on 04-14-2023 Creatinine [Mass/Vol] 0.73 mg/dL 0.55-1.02 [facility] Comment on above: The validity of the calculated GFR & GFRAA in patients over 70 years has not been determined. Clinical correlation is essential. Serum or plasma urea nitroge n measurement (mass/volume)Ordered By: Yolie Car on 04-14-2023 Urea nitrogen [Mass/Vol] 8 mg/dL -18 [facility] Thin prep Papanicolaou smear with manual screeningOrdered By: Yolie Car on 04-14-2023 Thin prep Papanicolaou smear with manual screening 7 5-15 [facility] EVIE DIAG W PABLO BILATERALon 11-24-2022 [facility] Basophil percentageon 2021 Chloride [Moles/Vol] 109 mmol/L 98-107 [facility] Work Phone: Glucose [Mass/Vol] 103 mg/dL 74-106 [facility] Work Phone: Comment on above: Fasting Glucose resu lt from 100 to 125 mg/dL suggests IMPAIRED HOMEOSTASIS per A.D.A. criteria. Potassium [Moles/Vol] 3.9 mmol/L 3.5-5.1 [facility] Work Phone: [phone] Sodium [Moles/Vol] 141 mmol/L 136-145 [facility] Work Phone: [phone] Laboratory - Chemistry and C hemistry - challengeon 04-09-2022 CO2 [Moles/Vol] 26.0 mmol/L 21.0-32.0 [facility] Work Phone: [phone] Urea nitrogen/Creatinine [Mass ratio] 13.9 mg/mg 10-20 [facility] Work Phone: No Panel Informationon 04-09 Estimated GFR (MDRD) Amer 100 mL/min >60 [facility] Work Phone: Comment on above: GFR Calc Estimated GFR (MDRD) Non-Af Amer 83 mL/min >60 [facility] Work Phone: Comment on above: Non- GFR Calc Serum or plasma calcium duke urement (mass/volume)on 04-09-2022 Calcium [Mass/Vol] 9.4 mg/dL 8.5-10.1 [facility] Work Phone: Serum or plasma creatinine m easurement (mass/volume)on 04-09-2022 Creatinine [Mass/Vol] 0.79 mg/dL 0.55-1.02 [facility] Work Phone: Comment on above: The validity of the calculated GFR & GFRAA in patients over 70 years has not been determined. Clinical correlation is essential. Serum or plasma urea nitroge n measurement (mass/volume)on 04-09-2022 Urea nitrogen [Mass/Vol] 11 mg/dL 7-18 [facility] Work Phone: [phone] Thin prep Papanicolaou smear with manual screeningon 04-09-2022 Thin prep Papanicolaou smear with manual screening 6 5-15 [facility] Work Phone: EVIE DIAGNOSTIC RTon 11-17-20 22 [facility] RT * * *Final Report* * * DATE OF EXAM: Mar 05 2022 8:06AM AAW [id number] - [facility]AG[facility]STIC RT / PROCEDURE REASON: Mammographic microcalcification found on diagnostic imaging of breast * * * * Physician Interpretation * * * * #[id number] - [facility]AG[facility]STIC RT UNILATERAL RIGHT DIGITAL DIAGNOSTIC MAMMOGRAM WITH CAD: 03/05/2022 HISTORY: Mammographic Microcalcification Found On Diagnostic Imaging Of Breast\ Patient returns for abnormal right mammogram. RESULT: TECHNIQUE: The study was acquired using full field digital technology and interpreted from soft copy. Current study was also evaluated with a Computer Aided Detection (CAD). Comparison is made to exams dated: 04/27/2018 mammogram, 05/30/2020 mammogram, 01/01/2022 mammogram, and 02/03/2022 mammogram - [facility]. The tissue of right breast is heterogeneously dense. This may lower the sensitivity of mammography. There are multiple scattered fine punctate calcifications in the right breast. These are predominately in the upper outer quadrant with small clustered punctate calcifications lower inner quadrant. Some of these appear to layer on the ML view suggesting milk of calcium. At least some of these were present going back to 2019 although direct comparison is limited by standard views on the prior exams vs magnification views on the current exam. Given these findings, these calcifications are probably benign. A six month follow up diagnostic mammogram is recommended to reassess. No other significant masses or calcifications are seen in the breast. IMPRESSION: PROBABLY BENIGN - SHORT TERM INTERVAL FOLLOW-UP RECOMMENDED The multiple scattered fine punctate calcifications in the right breast are probably benign. A follow-up mammogram in 6 months is recommended to demonstrate stability. Nile root/chantelle:03/05/2022 08:10:13 Steam Shovelman(s): RT Kely(R)(M), [facility] Mammogram BI-RADS: 3 Probably benign finding - short term interval follow-up recommended Multiple national specialty organizations have released breast cancer screening guidelines for women at average risk for developing breast cancer - guidelines that are based on both evidence and opinion, yet differ on when to start and how often to screen for breast cancer. With representation from Breast Imaging, Internal Medicine, Women's Health, Family Medicine, and Medical/Surgical Oncology, the [facility] has carefully reviewed the data and reached the following consensus: 1) All women should engage in shared decision-making with their providers to decide when to start and how often to screen; 2) All women should have the opportunity to start screening mammography at age 40; 3) For women ages 45-55, we recommend annual screening mammograms; 4) For women ages 55 and over, we support both the transition from an annual to a biennial interval if this aligns more with patient's values and preferences, or continuation with annual screening; 5) All women should discuss with their providers when to stop screening mammograms. Hooker Off: Chantelle Transcribe Date/Time: Mar 05 2022 7:48A Dictated by : NILE RAE MD This examination was interpreted and the report reviewed and electronically signed by: NILE RAE MD on Mar 05 2022 8:10AM EST [id number] Normal [facility] EVIE DIAGNOSTIC RTon 02-04-20 [facility] Basophil percentageon 2021 Chloride [Moles/Vol] 109 mmol/L 98-107 [facility] Work Phone: Glucose [Mass/Vol] 80 mg/dL 74-106 [facility] Work Phone: Potassium [Moles/Vol] 3.4 mmol/L 3.5-5.1 [facility] Work Phone: Sodium [Moles/Vol] 141 mmol/L 136-145 [facility] Work Phone: Laboratory - Chemistry and C hemistry - challengeon 10-29-2021 CO2 [Moles/Vol] 27.0 mmol/L 21.0-32.0 [facility] Work Phone: Cobalamin (Vitamin B12) [Mass/Vol] 472 pg/mL 211-911 [facility] Work Phone: Free T4 [Mass/Vol] 0.94 ng/dL 0.76-1.46 [facility] Work Phone: Urea nitrogen/Creatinine [Mass ratio] 14.5 mg/mg 02-05 [facility] Work Phone: No Panel Informationon 10-29 Estimated GFR (MDRD) Amer 106 mL/min >60 [facility] Work Phone: Comment on above: GFR Calc Estimated GFR (MDRD) Non-Af Amer 88 mL/min >60 [facility] Work Phone: Comment on above: Non- GFR Calc Thyroid Stimulating Hormone (TSH) 2.38 uIU/mL 0.358-3.74 [facility] Work Phone: Serum or plasma calcium duke urement (mass/volume)on 10-29-2021 Calcium [Mass/Vol] 9.3 mg/dL 8.5-10.1 [facility] Work Phone: Serum or plasma creatinine m easurement (mass/volume)on 10-29-2021 Creatinine [Mass/Vol] 0.76 mg/dL 0.55-1.02 [facility] Work Phone: Comment on above: The validity of the calculated GFR & GFRAA in patients over 70 years has not been determined. Clinical correlation is essential. Serum or plasma urea nitroge n measurement (mass/volume)on 10-29-2021 Urea nitrogen [Mass/Vol] 11 mg/dL 7-18 [facility] Work Phone: Thin prep Papanicolaou smear with manual screeningon 10-29-2021 Thin prep Papanicolaou smear with manual screening 5 5-15 [facility] Work Phone: Basophil percentageon 2021 Testosterone [Mass/Vol] 32 ng/dL 4-50 [facility] Work Phone: [phone] Free testosterone percentage on 09-02-2021 Testosterone Free/Testosterone.total [Mass fraction] 1.44 % 0.50-2.80 [facility] Work Phone: Comment on above: Performed at: [address] [id number] Director: Daniel Cortez PhD, Phone: [phone] at: - [address] [id number] [place], [place] [id number] Director: Anali Rodarte MD, Phone: [phone] Iron measurement (mass/mass) on 09-02-2021 Iron (Unsp spec) [Mass/Mass] 88 ug/dL 50-170 [facility] Work Phone: [phone] No Panel Informationon 09-02 Total Iron Binding Capacity 369 ug/dL 250-450 [facility] Work Phone: [phone] Vitamin D 25-Hydroxy 108.5 ng/mL [facility] Work Phone: [phone] Comment on above: Vitamin D 25(OH) Sta tus Range Deficiency <20 ng/mL (50nmol/L) Insufficiency 20 - 30 ng/mL (50 - 75 nmol/L) Sufficiency 30 - 100 ng/mL (75 - 250 nmol/L) Toxicity >100 ng/mL (>250 nmol/L)Evidence suggests that patients undergoing fluorescein dye angiography can retain small amounts of fluorescein in the body for up to 48 to 72 hours post-treatment. In the cases of patients with renal insufficiency, retention could be much longer. Samples containing fluorescein can produce falsely elevated values when tested with the Advia Centaur Vitamin D assay. With fluorescein interference, observed Vitamin D values can be as high as >150 ng/mL (>375 nmol/L). Samples should be resubmitted post fluorescein clearance to ensure there is no interference with Vitamin D test results. Serum or plasma ferritin susi surement (mass/volume)on 09-02-2021 Ferritin [Mass/Vol] 28 ng/mL 8-252 [facility] Work Phone: [phone] Serum or plasma iron saturat ion measurement (mass fraction)on 09-02-2021 Iron saturation [Mass fraction] 23.8 % 15.0-55.0 [facility] Work Phone: [phone] Serum or plasma testosterone free measurement (mass/volume)on 09-02-2021 Testosterone Free [Mass/Vol] 0.46 ng/dL 0.10-0.85 [facility] Work Phone: [phone] Absolute lymphocyte counton 07-24-2021 Lymphocytes Auto (Unsp spec) [#/Vol] 1.72 10*3/uL 0.83-4.51 [facility] Work Phone: Basophil percentageon 2021 Basophils/100 WBC (Bld) 0.3 % 0-1 [facility] Work Phone: Bilirubin [Mass/Vol] 0.40 mg/dL 0.20-1.00 [facility] Work Phone: Comment on above: For patients on eltr ombopag therapy, use of Dimension [place] TBIL is not recommended. Chloride [Moles/Vol] 110 mmol/L 98-107 [facility] Work Phone: Cholesterol [Mass/Vol] 193 mg/dL <200 [facility] Work Phone: Comment on above: <200 mg/dL Desirable 200-240 mg/dL Borderline >240 mg/dL High Risk Eosinophils/100 WBC (Bld) 1.9 % 0-5 [facility] Work Phone: Glucose [Mass/Vol] 106 mg/dL 74-106 [facility] Work Phone: Comment on above: Fasting Glucose resu lt from 100 to 125 mg/dL suggests IMPAIRED HOMEOSTASIS per A.D.A. criteria. Neutrophils (Bld) [#/Vol] 5.0 10*3/uL 2.0-7.7 [facility] Work Phone: Neutrophils/100 WBC (Bld) 67.5 % 47-70 [facility] Work Phone: Potassium [Moles/Vol] 3.9 mmol/L 3.5-5.1 [facility] Work Phone: Protein [Mass/Vol] 7.5 g/dL 6.4-8.2 [facility] Work Phone: Sodium [Moles/Vol] 138 mmol/L 136-145 [facility] Work Phone: Triglyceride [Mass/Vol] 82 mg/dL <199 [facility] Work Phone: [phone] Comment on above: The drugs N-Acetylcy steine and Metamizole may falsely depress this assay.Serum Triglycerides Reference Interval Normal <150 mg/dL Borderline high 150 - 199 mg/dL High 200 - 499 mg/dL Very High > or = 500 mg/dL WBC (Bld) [#/Vol] 7.4 10*3/uL 4.4-11.0 [facility] Work Phone: [phone] Blood erythrocytes count (nu mber/volume)on 07-24-2021 RBC (Bld) [#/Vol] 4.58 10*6/uL 4.2-5.4 [facility] Work Phone: [phone] Blood hemoglobin measurement (mass/volume)on 07-24-2021 Hemoglobin (Bld) [Mass/Vol] 13.6 g/dL 12.0-15.0 [facility] Work Phone: Blood lymphocytes/100 leukoc yteson 07-24-2021 Lymphocytes/100 WBC (Bld) 23.2 % 19-41 [facility] Work Phone: [phone] Blood monocytes/100 leukocyt eson 07-24-2021 Monocytes/100 WBC (Bld) 6.8 % 0-10 [facility] Work Phone: [phone] Blood platelet mean volumeon 07-24-2021 Platelet mean volume (Bld) [Entitic vol] 10.4 fL 6.2-12.0 [facility] Work Phone: [phone] Determination of erythrocyte mean corpuscular volume (MCV)on 07-24-2021 MCV (RBC) [Entitic vol] 90.6 fL 81-99 [facility] Work Phone: [phone] Hematocrit Auto (Bld) [Volum e fraction]on 07-24-2021 Hematocrit (Bld) [Volume fraction] 41.5 % 37-47 [facility] Work Phone: [phone] Iron measurement (mass/mass) on 07-24-2021 Iron (Unsp spec) [Mass/Mass] 88 ug/dL 50-170 [facility] Work Phone: Laboratory - Chemistry and C hemistry - challengeon 07-24-2021 ALP [Catalytic activity/Vol] 100 U/L 45-117 [facility] Work Phone: [phone] ALT [Catalytic activity/Vol] 20 U/L 13-56 [facility] Work Phone: [phone] CO2 [Moles/Vol] 24.0 mmol/L 21.0-32.0 [facility] Work Phone: [phone] Cobalamin (Vitamin B12) [Mass/Vol] 213 pg/mL 211-911 [facility] Work Phone: [phone] Globulin (S) [Mass/Vol] 3.9 g/dL 2.2-4.2 [facility] Work Phone: [phone] Urea nitrogen/Creatinine [Mass ratio] 14.6 mg/mg 10-20 [facility] Work Phone: [phone] Laboratory - Hematology and Cell countson 07-24-2021 Erythrocyte distribution width (RBC) [Entitic vol] 41.7 fL 35.1-43.9 [facility] Work Phone: [phone] Erythrocyte distribution width (RBC) [Ratio] 12.6 % 11.6-14.6 [facility] Work Phone: [phone] Immature granulocytes/100 WBC (Bld) 0.300 % 0.0-0.9 [facility] Work Phone: [phone] Comment on above: IG% - Immature Granu locytes (promyelocytes, myelocytes and metamyelocytes) > 1% indicates that a LEFT SHIFT is Present. MCH (RBC) [Entitic mass] 29.7 pg 27.0-32.0 [facility] Work Phone: [phone] Nucleated RBC/100 WBC (Bld) [Ratio] 0 % 0-5 [facility] Work Phone: [phone] MCHC Auto (RBC) [Mass/Vol]on 07-24-2021 MCHC (RBC) [Mass/Vol] 32.8 g/dL 32-36 [facility] Work Phone: [phone] Panel Informationon 07-24 Estimated GFR (MDRD) Amer 97 mL/min >60 [facility] Work Phone: Comment on above: GFR Calc Estimated GFR (MDRD) Non-Af Amer 80 mL/min >60 [facility] Work Phone: Comment on above: Non- GFR Calc Thyroid Stimulating Hormone (TSH) 2.54 uIU/mL 0.358-3.74 [facility] Work Phone: Platelets bldon 07-24-2021 Platelets (Bld) [#/Vol] 313 10*3/uL 150-450 [facility] Work Phone: Serum or plasma albumin duke urement (mass/volume)on 07-24-2021 Albumin [Mass/Vol] 3.6 g/dL 3.2-5.0 [facility] Work Phone: Serum or plasma albumin/glob ulin mass ratioon 07-24-2021 Albumin/Globulin [Mass ratio] 0.9 {ratio} 0.9-2.4 [facility] Work Phone: Serum or plasma calcium duke urement (mass/volume)on 07-24-2021 Calcium [Mass/Vol] 8.7 mg/dL 8.5-10.1 [facility] Work Phone: Serum or plasma cholesterol in HDL measurement (mass/volume)on 07-24-2021 Cholesterol in HDL [Mass/Vol] 39 mg/dL >40 [facility] Work Phone: Comment on above: The drugs N-Acetylcy steine and Metamizole may falsely depress this assay. Reference Range HDL <40 mg/dL Low HDL Cholesterol HDL >or= 60 mg/dL High HDL Cholesterol Serum or plasma cholesterol in VLDL measurement (mass/volume)on 07-24-2021 Cholesterol in VLDL [Mass/Vol] 16 mg/dL 5-40 [facility] Work Phone: Serum or plasma creatinine m easurement (mass/volume)on 07-24-2021 Creatinine [Mass/Vol] 0.82 mg/dL 0.55-1.02 [facility] Work Phone: Comment on above: The validity of the calculated GFR & GFRAA in patients over 70 years has not been determined. Clinical correlation is essential. Serum or plasma ferritin susi surement (mass/volume)on 07-24-2021 Ferritin [Mass/Vol] 39 ng/mL 8-252 [facility] Work Phone: Serum or plasma low density lipoprotein (LDL) cholesterol measurement (mass/volume)on 07-24-2021 Cholesterol in LDL [Mass/Vol] 138 mg/dL 0-130 [facility] Work Phone: Serum or plasma urea nitroge n measurement (mass/volume)on 07-24-2021 Urea nitrogen [Mass/Vol] 12 mg/dL 7-18 [facility] Work Phone: Thin prep Papanicolaou smear with manual screeningon 07-24-2021 Thin prep Papanicolaou smear with manual screening 15 U/L 15-37 [facility] Work Phone: Thin prep Papanicolaou smear with manual screening 4 5-15 [facility] Work Phone: Vital Signs Date Time Vital Sign Value Performing Clinician [place] dailey 02-02-2025 07:09-0400 Body height 173.[address] Araseli Medellin MD Work Phone: [facility] 02-02-2025 07:09-0400 Body mass index (BMI) [Ratio] 42.5 kg/m2 Dr. Araseli Medellin MD Work Phone: [facility] 02-02-2025 07:09-0400 Body temperature 97.7 [degF] Dr. Araseli Medellin MD Work Phone: [facility] 02-02-2025 07:09-0400 Body weight 128.[address] Araseli Medellin MD Work Phone: [facility] 02-02-2025 07:09-0400 Diastolic blood pressure 92 mm[Hg] Dr. Araseli Medellin MD Work Phone: [facility] 02-02-2025 07:09-0400 Heart rate 88 /min Dr. Araseli Medellin MD Work Phone: [facility] 02-02-2025 07:09-0400 SaO2% (BldA) [Mass fraction] 97 % Dr. Araseli Medellin MD Work Phone: [facility] 02-02-2025 07:09-0400 Systolic blood pressure 142 mm[Hg] Dr. Araseli Medellin MD Work Phone: [facility] 10-20-2024 08:18-0400 Body mass index (BMI) [Ratio] 42.87 kg/m2 Leslye Khari AUTO TESTER.CYLINDER SANDER OPERATOR Work Phone: [facility] 10-20-2024 08:18-0400 Body temperature 97.59 [degF] Leslye Lucia AUTO TESTER.CYLINDER SANDER OPERATOR Work Phone: [facility] 10-20-2024 08:18-0400 Body weight 127.9 kg Leslye Lucia AUTO TESTER.CYLINDER SANDER OPERATOR Work Phone: [facility] 10-20-2024 08:18-0400 Diastolic blood pressure 78 mm[Hg] Leslye Khari AUTO TESTER.CYLINDER SANDER OPERATOR Work Phone: [facility] 10-20-2024 08:18-0400 Heart rate 80 /min Leslye Khari AUTO TESTER.CYLINDER SANDER OPERATOR Work Phone: [facility] 10-20-2024 08:18-0400 Respiratory rate 18 /min Leslye Khari AUTO TESTER.CYLINDER SANDER OPERATOR Work Phone: [facility] 10-20-2024 08:18-0400 SaO2% (BldA) [Mass fraction] 98 % Leslye Lucia AUTO TESTER.CYLINDER SANDER OPERATOR Work Phone: [facility] 10-20-2024 08:18-0400 Systolic blood pressure 130 mm[Hg] Leslye Lucia AUTO TESTER.CYLINDER SANDER OPERATOR Work Phone: [facility] 09-04-2024 10:48-0400 Body height 173.[address] Araseli Medellin MD Work Phone: [facility] 09-04-2024 10:48-0400 Body mass index (BMI) [Ratio] 43.2 kg/m2 Dr. Araseli Medellin MD Work Phone: [facility] 09-04-2024 10:48-0400 Body weight 131.[address] Araseli Medellin MD Work Phone: [facility] 09-04-2024 10:48-0400 Diastolic blood pressure 87 mm[Hg] Dr. Araseli Medellin MD Work Phone: [facility] 09-04-2024 10:48-0400 Heart rate 75 /min Dr. Araseli Medellin MD Work Phone: [facility] 09-04-2024 10:48-0400 SaO2% (BldA) [Mass fraction] 98 % Dr. Araseli Medellin MD Work Phone: [facility] 09-04-2024 10:48-0400 Systolic blood pressure 143 mm[Hg] Dr. Araseli Medellin MD Work Phone: [facility] 05-15-2024 09:17-0500 Body height 172.7 cm [facility] AUTO TESTER.CYLINDER SANDER OPERATOR Work Phone: [facility] 05-15-2024 09:17-0500 Body mass index (BMI) [Ratio] 43.44 kg/m2 [facility] AUTO TESTER.CYLINDER SANDER OPERATOR Work Phone: [facility] 05-15-2024 09:17-0500 Body weight 129.6 kg [facility] AUTO TESTER.CYLINDER SANDER OPERATOR Work Phone: [facility] 05-15-2024 09:17-0500 Diastolic blood pressure 91 mm[Hg] [facility] AUTO TESTER.CYLINDER SANDER OPERATOR Work Phone: [facility] 05-15-2024 09:17-0500 Heart rate 80 /min [facility] TESTER.CYLINDER SANDER OPERATOR Work Phone: [facility] 05-15-2024 09:17-0500 SaO2% (BldA) [Mass fraction] 98 % Tamanna Pyle AUTO TESTER.CYLINDER SANDER OPERATOR Work Phone: [facility] 05-15-2024 09:17-0500 Systolic blood pressure 143 mm[Hg] Tamanna Pyle AUTO TESTER.CYLINDER SANDER OPERATOR Work Phone: [facility] 03-30-2024 14:16-0500 Body mass index (BMI) [Ratio] 46.05 kg/m2 Otf Olivares MD Work Phone: [facility] 03-30-2024 14:16-0500 Body weight 127.46 kg Otf Olivares MD Work Phone: [facility] 03-30-2024 14:16-0500 Diastolic blood pressure 84 mm[Hg] Otf Olivares MD Work Phone: [facility] 03-30-2024 14:16-0500 Systolic blood pressure 138 mm[Hg] Otf Olivares MD Work Phone: [facility] 03-02-2024 10:43-0500 Body height 166.4 cm Otf Olivares MD Work Phone: [facility] 03-02-2024 10:43-0500 Body mass index (BMI) [Ratio] 46.05 kg/m2 Otf Olivares MD Work Phone: [facility] 03-02-2024 10:43-0500 Body weight 127.46 kg Otf Olivares MD Work Phone: [facility] 03-02-2024 10:43-0500 Diastolic blood pressure 88 mm[Hg] Otf Olivares MD Work Phone: [facility] 03-02-2024 10:43-0500 Systolic blood pressure 136 mm[Hg] Otf Olivares MD Work Phone: [facility] 03-15-2023 12:55-0500 Diastolic blood pressure 84 mm[Hg] Tamanna Pyle AUTO TESTER.CYLINDER SANDER OPERATOR Work Phone: [facility] 03-15-2023 12:55-0500 Heart rate 85 /min Tamanna Pyle AUTO TESTER.CYLINDER SANDER OPERATOR Work Phone: [facility] 03-15-2023 12:55-0500 SaO2% (BldA) [Mass fraction] 99 % Tamanna Pyle AUTO TESTER.CYLINDER SANDER OPERATOR Work Phone: [facility] 03-15-2023 12:55-0500 Systolic blood pressure 141 mm[Hg] Tamanna Pyle AUTO TESTER.CYLINDER SANDER OPERATOR Work Phone: [facility] 01-26-2023 08:59-0400 Body height 170.8 cm Otf Olivares MD Work Phone: [facility] 01-26-2023 08:59-0400 Body weight 125.65 kg Otf Olivares MD Work Phone: [facility] 01-26-2023 08:59-0400 Diastolic blood pressure 88 mm[Hg] Otf Olivares MD Work Phone: [facility] 01-26-2023 08:59-0400 Systolic blood pressure 134 mm[Hg] Otf Olivares MD Work Phone: [facility] 02-05-2022 16:12-0400 Body height 172.7 cm Ayad Mann MD Work Phone: [facility] 02-05-2022 16:12-0400 Body temperature 98.2 [degF] Ayad Mann MD Work Phone: [facility] 02-05-2022 16:12-0400 Body weight 122.2 kg Ayad Mann MD Work Phone: [facility] 02-05-2022 16:12-0400 Diastolic blood pressure 86 mm[Hg] Ayad Mann MD Work Phone: [facility] 02-05-2022 16:12-0400 Heart rate 96 /min Ayad Mann MD Work Phone: [facility] 02-05-2022 16:12-0400 SaO2% (BldA) [Mass fraction] 99 % Ayad Mann MD Work Phone: [facility] 02-05-2022 16:12-0400 Systolic blood pressure 122 mm[Hg] Ayad Mann MD Work Phone: [facility] 12-02-2021 09:39-0400 Body height 172.7 cm Otf Olivares MD Work Phone: [facility] 12-02-2021 09:39-0400 Body weight 120.66 kg Otf Olivares MD Work Phone: [facility] 12-02-2021 09:39-0400 Diastolic blood pressure 86 mm[Hg] Otf Olivares MD Work Phone: [facility] 12-02-2021 09:39-0400 Systolic blood pressure 128 mm[Hg] Otf Olivares MD Work Phone: [facility] Encounters Encounter Date Encounter Type Care Provider Facility Start: 02-02-2025 End: 02-02-2025 Patient encounter procedure Nahum Wilder [place] [facility] Work Phone: Start: 02-02-2025 End: 02-02-2025 ambulatory Araseli Medellin Facility:[facility] Start: 10-20-2024 End: 10-20-2024 Patient encounter procedure Leslye Lucia APRN.CNP Work Phone: [facility] Comment on above: Lower resp. tract in fection (Primary Dx) Start: 10-20-2024 End: 10-20-2024 ambulatory ARASELI MEDELLIN Facility:[facility] Start: 09-07-2024 End: 09-07-[address] Araseli Medellin MD Work Phone: [facility] Work Phone: Start: 09-07-2024 End: 09-07-[address] Gee Lucia MD -Laboratory Work Phone: Start: 09-07-2024 End: 09-07-2024 ambulatory Gee Lucia Facility:[facility] Start: 09-04-2024 End: 09-04-[address] Gee Lucia MD -[facility] Work Phone: Start: 09-04-2024 End: 09-04-[address] Araseli Medellin MD Work Phone: [facility] Work Phone: Start: 05-17-2024 End: 05-17-[address] Yolie Car MD -Laboratory Work Phone: Start: 05-17-2024 End: 05-17-2024 ambulatory Araseli Medellin Facility:[facility] Start: 05-15-2024 End: 05-15-2024 Telephone encounter Tamanna Pyle APRN.CYLINDER SANDER OPERATOR Work Phone: Neurology Comment on above: Orders (Faxed CPAP R x and e-signed office note to [facility]--Millie at [phone]./) Start: 05-15-2024 End: 05-15-2024 ambulatory ARASELI MEDELLIN Facility:[facility] Start: 05-15-2024 End: 05-15-2024 Patient encounter procedure Tamanna Pyle APRN.CYLINDER SANDER OPERATOR Work Phone: Neurology Comment on above: DEE (obstructive sle ep apnea) (Primary Dx) Start: 04-03-2024 End: 04-13-2024 Telephone encounter Otf Olivares MD Work Phone: OB/Gynecology Start: 03-30-2024 End: 03-30-2024 ambulatory OTF OLIVARES Facility:[facility] Start: 03-30-2024 End: 03-30-2024 Patient encounter procedure Otf Olivares MD Work Phone: OB/Gynecology Comment on above: Menorrhagia with reg ular cycle (Primary Dx); Submucous uterine fibroid Start: 03-10-2024 End: 03-10-2024 Patient encounter procedure Tower Switch Operator [facility] Remote Work Phone: OB/Gynecology Start: 03-10-2024 End: 03-10-2024 ambulatory Tower Switch Operator [facility]str [facility] Remote Work Phone: OB/Gynecology Start: 03-02-2024 End: 03-02-2024 Patient encounter procedure Otf Olivares MD Work Phone: OB/Gynecology Comment on above: Encounter for gyneco logical examination (general) (routine) without abnormal findings (Primary Dx); Encounter for screening mammogram for breast cancer; Menorrhagia with regular cycle; Encounter for screening for malignant neoplasm of colon Start: 03-02-2024 End: 03-02-2024 Patient encounter status Otf Olivares MD Work Phone: [facility] Start: 03-02-2024 End: 03-02-2024 ambulatory OTF OLIVARES Facility:[facility] Start: 03-02-2024 End: 03-02-2024 ambulatory ARASELI AMATOMINONG Facility:[facility] Start: 03-02-2024 End: 03-02-2024 Subsequent hospital visit by physician Screen Mammo [facility] Mammogram Comment on above: Encounter for screen ing mammogram for malignant neoplasm of breast [Z12.31] Start: 02-07-2024 End: 02-07-2024 ambulatory Otf Olivares MD Work Phone: OB/Gynecology Comment on above: Mammogram Start: 09-06-2023 Telephone encounter Tamanna Caballero APRN.[facility] Work Phone: Neurology Comment on above: Insurance Authorizat ion (Received insurance authorization approval for confirmation of medical necessity for CPAP DME and supplies through [facility]. //[facility]/Reference # [id number]/) Start: 06-08-2023 End: 06-08-2023 Subsequent hospital visit by physician Diagnostic Mammo [facility] Wstr Mammogram Start: 04-14-2023 End: 04-14-2023 ambulatory [facility] Work Phone: Start: 04-14-2023 End: 04-14-2023 Patient encounter procedure [facility] Work Phone: Start: 03-19-2023 Telephone encounter Tamanna Caballero APRN.CYLINDER SANDER OPERATOR Work Phone: Neurology Comment on above: Orders (Faxed singed order to [facility]. ) Start: 03-15-2023 End: 03-15-2023 Patient encounter procedure Tamanna Pyle APRN.CYLINDER SANDER OPERATOR Work Phone: Neurology Comment on above: DEE (obstructive sle ep apnea) (Primary Dx) Start: 01-26-2023 End: 01-26-2023 Patient encounter procedure Otf Olivares MD Work Phone: OB/Gynecology Comment on above: Encounter for gyneco logical examination (general) (routine) without abnormal findings (Primary Dx) Start: 01-26-2023 End: 01-26-2023 Patient encounter status Otf Olivares MD Work Phone: [facility] Start: 12-30-2022 End: 12-30-2022 Discharged Recurring [facility]-Physical Therapy Work Phone: Start: 11-24-2022 End: 11-24-2022 Orders Only Otf Olivares MD Work Phone: OB/Gynecology Comment on above: Abnormal mammogram ( Primary Dx) Start: 10-28-2022 Telephone encounter Tamanna Caballero APRN.CYLINDER SANDER OPERATOR Work Phone: Neurology Comment on above: Orders ([employer] ) Start: 10-15-2022 Telephone encounter Otf Olivares MD Work Phone: OB/Gynecology Comment on above: Orders Start: 10-12-2022 Telephone encounter Tamanna Caballero APRN.CYLINDER SANDER OPERATOR Work Phone: Neurology Comment on above: Rejected CMN Start: 10-07-2022 End: 10-07-2022 [facility] Work Phone: Start: 10-07-2022 End: 10-07-2022 Patient encounter procedure [facility] Start: 04-09-2022 End: 04-09-2022 ambulatory [facility] Work Phone: Start: 04-09-2022 End: 04-09-2022 Patient encounter procedure Millie [facility] Start: 03-05-2022 ambulatory ARASELI MEDELLIN Facility:[facility] Start: 03-05-2022 End: 03-05-2022 Subsequent hospital visit by physician Procedure Mammo [facility] RADIO MAMMO REFLECTIONS [facility] Comment on above: Arrived Start: 02-10-2022 ambulatory Babita Salvador MD Work Phone: Mammography Comment on above: Radio Imaging Study Comments Start: 02-10-2022 Patient encounter procedure Marisa Madera MD Work Phone: [facility] Start: 02-05-2022 End: 02-05-2022 Patient encounter procedure Ayad Mann MD Work Phone: General Surgery Comment on above: 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 (Primary Dx) Start: 02-05-2022 Telephone encounter Ayad akers MD Work Phone: General Surgery Comment on above: Appointment (Stereot actic breast biopsy) Start: 02-03-2022 End: 02-03-2022 Subsequent hospital visit by physician Diagnostic Mammo [facility] W[facility] Mammogram Comment on above: Abnormal mammogram [ R92.8] Start: 01-05-2022 Orders Only Otf christianson MD Work Phone: OB/Gynecology Comment on above: Abnormal mammogram ( Primary Dx) Start: 01-01-2022 End: 01-01-2022 Patient encounter status Screen Wstr Mammogram Start: 01-01-2022 End: 01-01-2022 Subsequent hospital visit by physician Screen Mammo [facility] Mammogram Comment on above: Encounter for gyneco logical examination (general) (routine) without abnormal findings [Z01.419] Start: 12-02-2021 End: 12-02-2021 Patient encounter procedure Otf Olivares MD Work Phone: OB/Gynecology Comment on above: Encounter for screen ing mammogram for breast cancer (Primary Dx); Encounter for gynecological examination (general) (routine) without abnormal findings; Screening for cervical cancer; Encounter for screening for human papillomavirus (HPV) Start: 12-02-2021 End: 12-02-2021 Patient encounter status Otf Olivares MD Work Phone: OB/Gynecology Start: 10-29-2021 End: 10-29-2021 Patient encounter procedure Millie [facility] Start: 09-02-2021 End: 09-02-2021 Patient encounter procedure Millie [facility] Start: 07-24-2021 End: 07-24-2021 Patient encounter procedure Millie [facility] Procedures Date Procedure Procedure Detail Performing Clinician Start: 09-07-2024 Vitamin D, 25-hydrox y measurement Dr. rAaseli Medellin MD Work Phone: Comment on above: Vitamin D StatusDefi ciency: <20 ng/mL (50nmol/L)Insufficiency: 20-30 ng/mL (50-75 nmol/L)Sufficiency: 30-100 ng/mL (75-250 nmol/L)Toxicity: >100 ng/mL (>250 nmol/L) Start: 05-17-2024 Measurement of renal function Dr. Araseli Medellin MD Work Phone: Comment on above: GFR Calc Start: 03-10-2024 Us pelvic nonobstetr ic real-time image complete Otf Olivares MD Work Phone: Start: 06-08-2023 Digital breast tomosynthesis unilateral Otf Olivares MD Work Phone: Start: 11-24-2022 End: 11-24-2022 Mammography Otf Olivares MD Work Phone: Start: 10-07-2022 Radiologic examinati on of knee Start: 02-03-2022 Diagnostic mammograp hy computer-aided detcj uni Otf Olivares MD Work Phone: Start: 01-01-2022 Mammography Otf magaña MD Work Phone: Start: 05-01-2021 Adult depression scr eening assessment Otf Olivares MD Work Phone: Plan of Treatment Date Care Activity Detail Author Start: 03-20-2027 Screening for malignant neoplasm of colon [facility] Start: 12-02-2026 HPV TESTING HPV TESTING [facility] Start: 12-02-2026 PAP TESTING PAP TESTING [facility] Start: 12-02-2026 Screening for malignant neoplasm of cervix [facility] Start: 05-14-2025 End: 05-14-2025 Patient encounter procedure 05/14/2025 9:00 AM EST Office Visit Neurology [address] [address] Tamanna Pyle, CALISTA.CYLINDER SANDER OPERATOR [address] [place] [address] Neurology Start: 03-05-2025 End: 03-05-2025 Patient encounter procedure 03/05/2025 2:20 PM EST Office Visit OB/Gynecology [address] [place], [place] [id number] Otf Olivares MD [address] [place] [address] Annual OB/Gynecology Comment on above: Annual Start: 03-05-2025 End: 03-05-2025 Patient encounter procedure 03/05/2025 1:10 PM EST Appointment Mammogram [address] [place], [place] [id number] Encounter for screening mammogram for breast cancer [Z12.31] Mammogram Comment on above: Encounter for screen ing mammogram for breast cancer [Z12.31] Start: 03-02-2025 Screening for malignant neoplasm of breast Mammogram Screening [facility] Start: 12-18-2024 Influenza vaccination Influenza Vacc ine (#1) [facility] Start: 09-04-2024 End: 09-04-2024 Patient encounter procedure 09/04/2024 10:00 AM EDT Office Visit Neurology [address] [address] Tamanna Pyle, CALISTA.CYLINDER SANDER OPERATOR [address] [place] [address] F/U Neurology Comment on above: F/U Start: 07-18-2024 End: 07-18-2024 Patient encounter procedure 07/18/2024 8:40 AM EDT Office Visit OB/Gynecology [address] [place] [address] Otf Olivares MD [address] [place], [place] [id number] Annual Exam OB/Gynecology Comment on above: Annual Exam Start: 05-15-2024 End: 05-15-2024 Patient encounter procedure 05/15/2024 9:00 AM EST Office Visit Neurology [address] [address] Tamanna Pyle, CALISTA.CYLINDER SANDER OPERATOR [address] [place] [address] F/U Neurology Comment on above: F/U Start: 03-30-2024 End: 03-30-2024 Patient encounter procedure 03/30/2024 8:15 AM EST Office Visit OB/Gynecology [address] [place] [address] Mya Davis APRN.CYLINDER SANDER OPERATOR [address] [place] [address] Menorrhagia with regular cycle [N92.0] OB/Gynecology Comment on above: Menorrhagia with reg ular cycle [N92.0] Start: 03-20-2024 End: 03-20-2024 Patient encounter procedure 03/20/2024 9:00 AM EST Office Visit Neurology [address] [address] Tamanna Pyle, CALISTA.CYLINDER SANDER OPERATOR [address] [place] [address] yearly follow up Neurology Comment on above: yearly follow up Start: 03-14-2024 End: 03-14-2024 Patient encounter procedure 03/14/2024 11:10 AM EST Office Visit OB/Gynecology [address] [place] [address] Patrizia Tejeda MD [address] [place] [address] Menorrhagia with regular cycle [N92.0] OB/Gynecology Comment on above: Menorrhagia with reg ular cycle [N92.0] Start: 03-10-2024 End: 03-10-2024 ambulatory 03/10/2024 8:00 AM EST Procedure OB/Gynecology [address] [address] Remote, Tower Switch Operator [facility] [address] [place] [address] Menorrhagia with regular cycle [N92.0] OB/Gynecology Comment on above: Menorrhagia with reg ular cycle [N92.0] Start: 03-02-2024 End: 06-01-2024 CBC panel - Blood by Automated count COMPLETE BLOOD COUNT Lab Routine Menorrhagia with regular cycle Expected: 03/02/2024, Expires: 06/01/2024 [facility] Comment on above: Expected: 03/02/2024 , Expires: 06/01/2024 Start: 03-02-2024 End: 06-01-2024 Iron and Iron binding capacity panel - Serum or Plasma IRON AND TIBC Lab Routine Menorrhagia with regular cycle Expected: 03/02/2024, Expires: 06/01/2024 [facility] Comment on above: Expected: 03/02/2024 , Expires: 06/01/2024 Start: 03-02-2024 End: 03-02-2025 US Pelvis PELVIC US [facility] Anc Imaging Routine Menorrhagia with regular cycle Expected: 03/02/2024, Expires: 03/02/2025 [facility] Comment on above: Expected: 03/02/2024 , Expires: 03/02/2025 Start: 02-29-2024 End: 02-29-2024 Patient encounter procedure 02/29/2024 8:40 AM EST Office Visit OB/Gynecology [address] [place] [address] Otf Olivares MD [address] [place] [address] Annual Exam OB/Gynecology Comment on above: Annual Exam Start: 12-19-2023 Covid-19 Vaccine () Covid-19 Vaccine () [facility] Start: 12-19-2023 Influenza vaccination [facility] [place] Start: 11-25-2023 Mammography [facility] Start: 11-25-2023 Screening for malignant neoplasm of breast Mammogram Screening [facility] Start: 04-19-2023 Behavioral Health Screening Behavioral Health Screening [facility] Start: 04-19-2023 [facility] Start: 01-01-2023 Mammography MAMMOGRAM [facility] Start: 12-18-2022 Covid-19 Vaccine () Covid-19 Vaccine () [facility] Start: 12-18-2022 Influenza vaccination [facility] [place] Start: 05-01-2022 Adult depression screening assessment DEPRESSION SCREENING [facility] Start: 04-19-2022 DEPRESSION ASSESSMENT DEPRESSION ASS ESSMENT [facility] Start: 12-18-2021 Influenza vaccination INFLUENZA (#1) [facility] Start: 2021 COLOGUARD (FIT-DNA) COLOGUARD (FIT-D NA) [facility] Start: 2021 Colonoscopy COLONOSCOPY [facility] Start: 2021 COLORECTAL CANCER SCREENING COLORECTAL CANCER SCREENING [facility] Start: [address] COLONOGRAPHY [facility] Start: 2021 DIABETES SCREEN DIABETES SCREEN [facility] Start: 2021 Diabetes Screening Diabetes Screenin g [facility] Start: 2021 FECAL OCCULT BLOOD FECAL OCCULT BLOO D [facility] Start: 2021 Lipid 1996 panel - Serum or Plasma Lipid Screening [facility] Start: 2021 Lipid panel Lipid Screening [facility] Start: 2021 LIPID SCREEN LIPID SCREEN [facility] Start: 2021 Screening for malignant neoplasm of colon [facility] Start: 2021 SIGMOIDOSCOPY SIGMOIDOSCOPY [facility] Start: 04-19-2021 DEPRESSION ASSESSMENT DEPRESSION ASS ESSMENT [facility] Start: 03-03-2021 COVID-19 VACCINE (2 - Booster for Sherie series) COVID-19 VACCINE (2 - Booster for Sherie series) [facility] Start: 2016 Mammography MAMMOGRAM [facility] Start: 2006 HPV TESTING HPV TESTING [facility] Start: 1997 PAP TESTING PAP TESTING [facility] Start: 1995 Hepatitis B Vaccine (1 of 3 - 19+ 3-dose series) Hepatitis B Vaccine (1 of 3 - 19+ 3-dose series) [facility] Start: 1995 Urine microalbumin profile [facility] Start: 1994 Anxiety Screening Anxiety Screening [facility] Start: 1994 Depression Screening Depression Scre ening [facility] Start: 1994 HEPATITIS C SCREENING HEPATITIS [facility] Start: 1994 Hepatitis C screening Hepatitis C [facility] Start: 1994 HIV SCREENING HIV SCREENING [facility] Start: 1994 HIV screening HIV Screening [facility] Start: 1976 HEPATITIS B (1 of 3 - 3-dose series) HEPATITIS B (1 of 3 - 3-dose series) [facility] Start: 1976 Hepatitis B Vaccine (1 of 3 - 3-dose series) Hepatitis B Vaccine (1 of 3 - 3-dose series) [facility] End: 03-07-2023 Bx breast w/device 1st lesion stereotactic guid EVIE STEREO BX BREAST RT Radiology Routine Mammographic microcalcification found on diagnostic imaging of breast 1 Occurrences starting 02/05/2022 until 03/07/2023 [facility] Work Phone: Comment on above: 1 Occurrences starti ng 02/05/2022 until 03/07/2023 CBC W Auto Differential panel - Blood [facility] Cobalamin (Vitamin B12) [Mass/volume] in Serum or Plasma [facility] COLOGUARD COLOGUARD Lab Ro utine Encounter for screening for malignant neoplasm of colon Ordered: 03/02/2024 [facility] Comment on above: Ordered: 03/02/2024 End: 03-08-2025 DBT Breast - bilateral screening EVIE SCREENING W PABLO Radiology Routine Encounter for screening mammogram for malignant neoplasm of breast 1 Occurrences starting 02/07/2024 until 03/08/2025 [facility] Work Phone: Comment on above: 1 Occurrences starti ng 02/07/2024 until 03/08/2025 End: 04-01-2025 DBT Breast - bilateral screening EVIE SCREENING W PABLO Radiology Routine Encounter for gynecological examination (general) (routine) without abnormal findings Encounter for screening mammogram for breast cancer 1 Occurrences starting 03/02/2024 until 04/01/2025 [facility] Work Phone: Comment on above: 1 Occurrences starti ng 03/02/2024 until 04/01/2025 DBT Breast - bilater al screening EVIE SCREENING W PABLO Radiology Routine Encounter for screening mammogram for malignant neoplasm of breast 03/02/2024 10:00 AM EST [facility] Work Phone: End: 02-04-2023 Diagnostic mammography computer-aided detcj uni EVIE DIAGNOSTIC RT Radiology Routine Abnormal mammogram 1 Occurrences starting 01/05/2022 until 02/04/2023 [facility] Work Phone: Comment on above: 1 Occurrences starti ng 01/05/2022 until 02/04/2023 Endometrial bx w/wo endocervix bx w/o dilat spx ENDOMETRIAL BIOPSY Procedures Routine Menorrhagia with regular cycle Ordered: 03/02/2024 [facility] Comment on above: Ordered: 03/02/2024 Ferritin [Mass/volum e] in Serum or Plasma [facility] End: 11-14-2023 EVIE DIAGNOSTIC RIGHT EVIE DIAGNOSTIC RIGHT Radiology Routine Abnormal mammogram 1 Occurrences starting 10/15/2022 until 11/14/2023 [facility] Work Phone: Comment on above: 1 Occurrences starti ng 10/15/2022 until 11/14/2023 End: 12-24-2023 EVIE DIAGNOSTIC RIGHT EVIE DIAGNOSTIC RIGHT Radiology Routine Abnormal mammogram 1 Occurrences starting 11/24/2022 until 12/24/2023 [facility] Work Phone: Comment on above: 1 Occurrences starti ng 11/24/2022 until 12/24/2023 End: 01-01-2023 EVIE SCREENING W PABLO EVIE SCREENING W PABLO Radiology Routine Encounter for gynecological examination (general) (routine) without abnormal findings Screening for cervical cancer Encounter for screening for human papillomavirus (HPV) 1 Occurrences starting 12/02/2021 until 01/01/2023 [facility] Work Phone: Comment on above: 1 Occurrences starti ng 12/02/2021 until 01/01/2023 End: 01-01-2022 EVIE SCREENING W PABLO [facility] Work Phone: Comment on above: 1 Occurrences starti ng 01/01/2022 until 01/01/2022 PAP FLUID CERVICAL SCREENING PAP FLUID CERVICAL SCREENING Lab Routine Encounter for gynecological examination (general) (routine) without abnormal findings Encounter for screening mammogram for breast cancer Ordered: 12/02/2021 [facility] Work Phone: Comment on above: Ordered: 12/02/2021 SURGICAL PATHOLOGY SURGICAL PATH OLOGY Lab Routine Menorrhagia with regular cycle 03/30/2024 2:48 PM EST [facility] Thyroid stimulating hormone measurement [facility] UA DIP,URINE HCG (POC) UA DIP,UR INE HCG (POC) Lab Routine Menorrhagia with regular cycle Ordered: 03/30/2024 [facility] Work Phone: Comment on above: Ordered: 03/30/2024 End: 02-04-2023 Us breast uni real time with image limited US BREAST LTD RT Radiology Routine Abnormal mammogram 1 Occurrences starting 01/05/2022 until 02/04/2023 [facility] Work Phone: Comment on above: 1 Occurrences starti ng 01/05/2022 until 02/04/2023 Vitamin D, 25-hydrox y measurement [facility] Payers Date Payer Category Payer Self-pay [id number] 2021 [employer] BLUE ACCE SS PPO [id number] 2021 Unknown VIJAY RAYA ACCE SS PPO [id number] 2021-Present [phone] [address] [place] [address] PPO [id number] 2014 Unknown [id number] 2014 Unknown [id number] 2014 Unknown [id number] Unknown [facility] DO NOT USE N22 [id number] Unknown [id number] Unknown [id number] Unknown [id number] Unknown [id number] Social History Date Type Detail Facility Start: 09-28-2014 End: 09-28-2014 Tobacco smoking status NHIS Unknown if ever smoked [facility] Start: 1975 Sex Assigned At Female [facility] Start: 11-08-2019 End: 08-21-2024 Tobacco smoking status NHIS Never smoked tobacco [facility] Start: 11-08-2019 End: 01-26-2023 Tobacco use and exposure Smokeless tobacco non-user [facility] Start: 12-02-2021 End: 03-30-2024 Alcohol intake Lifetime non-drinker (finding) [facility] Start: 11-08-2019 History SDOH Alcohol Frequency 1 [facility] Start: 1975 Sex Assigned At Not on file [facility] [place] Start: 11-22-2021 End: 03-05-2022 Exposure to SARS-CoV-2 (event) Not sure [facility] Start: 02-05-2022 End: 02-25-2024 History of Social function [facility] Start: 02-05-2022 End: 02-25-2024 Tobacco use panel [facility] National Score (1-10 0), lower number is lower risk 57 [facility] How often to you hav e a drink containing alcohol? Never [facility] Clinical Notes 12-02-2021 to 02-02-2025 Leslye Lucia APRN.CYLINDER SANDER OPERATOR - 10/20/2024 8:22 AM EDT Note Date & Type Note Facility 02-02-2025 Progress note [facility] 10-20-2024 Note HNO ID: [id number] Author: LESLYE LUCIA APRN.CYLINDER SANDER OPERATOR Service: ? Author Type: Nurse Practitioner Type: Progress Notes Filed: 10/20/2024 09:39 Note Text: [facility] Subjective HPI HPI Halie Wilkins is a 49 year old female who presents today for CC of cough, loss voice. This started 1 week ago/worsening. Has tried otc medication for relief. Symptoms are worsened by nothing. nonsmoker. .Patient presents with: Cough: Voice coming and going x 1 week PAST MEDICAL HISTORY Diagnosis Date DEE (obstructive sleep apnea) 01/30/2009 PSG and titration done @ Dr Curtis office - AHI 74 - retitration done 2012 @ [facility] DEE on CPAP 04/2016 AutoPAP 8-20 DME [facility] PCOS (polycystic ovarian syndrome) PAST SURGICAL HISTORY Procedure Laterality Date APPENDECTOMY 2012 SECTION HX 01/14/2006 KIDNEY STONE SURGERY HX ALLERGIES Nickel MEDICATIONS levothyroxine (SYNTHROID) 150 mcg tablet Take 1 tablet by mouth once daily. CPAP/BIPAP/OTHER Supplies: Settings 8 - 20 cm H2O, suitable mask per pt preference, chin strap, head gear, humidity, tubing, lifetime supplies. G47.33 DEE CPAP Supplies: AutoPAP 8-20 cmH2O, suitable mask, humidity, heated tubing (STEFAN), filters. Lifetime supplies. Dx: G47.33 cholecalciferol, vitamin D3, (VITAMIN D3 ORAL) Take 5,000 Units by mouth once daily. thyroid,pork (ARMOUR THYROID ORAL) Take 30 mg by mouth once daily. Unsure of dose (Patient not taking: Reported on 10/20/2024) FAMILY HISTORY Problem Relation Age of Onset Heart Mother Heart Father Diabetes Father Macular Degen Sister other (pcos) Sister Social History Tobacco Use Smoking status: Never Smokeless tobacco: Never Vaping Use Vaping status: Never Used Substance Use Topics Alcohol use: Never Drug use: Never Review of Systems Constitutional: Negative for chills, fatigue and fever. HENT: Positive for rhinorrhea and sore throat. Negative for ear discharge, ear pain, sinus pressure and sinus pain. Eyes: Negative for discharge and redness. Respiratory: Positive for cough. Negative for shortness of breath and wheezing. Cardiovascular: Negative for chest pain. Skin: Negative for rash. Objective BP 130/78 Pulse 80 Temp 36.4 ?C (97.6 ?F) Resp 18 Wt 127.9 kg (281 lb 15.5 oz) LMP 03/21/2024 (Within Days) SpO2 98% BMI 42.87 kg/m? Physical Exam Constitutional: General: She is not in acute distress. Appearance: She is not toxic-appearing or diaphoretic. HENT: Head: Normocephalic and atraumatic. Right Ear: Hearing, tympanic membrane, ear canal and external ear normal. Left Ear: Hearing, tympanic membrane, ear canal and external ear normal. Nose: Nose normal. Mouth/Throat: Pharynx: Uvula midline. Eyes: General: Lids are normal. No scleral icterus. Right eye: No discharge. Left eye: No discharge. Conjunctiva/sclera: Conjunctivae normal. Pupils: Pupils are equal, round, and reactive to light. Neck: Trachea: Trachea normal. Cardiovascular: Rate and Rhythm: Normal rate and regular rhythm. Heart sounds: Normal heart sounds. Pulmonary: Effort: Pulmonary effort is normal. Breath sounds: Examination of the right-lower field reveals rhonchi. Rhonchi present. No decreased breath sounds, wheezing or rales. Musculoskeletal: Cervical back: Normal range of motion and neck supple. Lymphadenopathy: Cervical: No cervical adenopathy. Skin: Findings: No rash. Neurological: Mental Status: She is alert and oriented to person, place, and time. {ASSESSMENT/PLAN: 1. Lower resp. tract infection - ICD9: 519.8, ICD10: J22 No xray at time of exam Exam concerns for pneumonia Treat with doxy -If you experience chest pain/shortness of breath go to ER F/u with pcp if s/s persist. - DOXYCYCLINE MONOHYDRATE 100 MG TABLET - BENZONATATE 100 MG CAPSULE Leslye Lucia APRN.CYLINDER SANDER OPERATOR History and Record Review External record(s) reviewed: no prior records. Additional Tests or Interventions The following testing was considered but ultimately not selected after discussion with patient/family: xray, not available. Disposition The patient was discharged. Procedures [facility] 10-20-2024 History of Present illness Narrative [facility] Subjective HPI HPI Halie Wilkins is a 49 year old female who presents today for CC of cough, loss voice. This started 1 week ago/worsening. Has tried otc medication for relief. Symptoms are worsened by nothing. nonsmoker. .Patient presents with: Cough: Voice coming and going x 1 week PAST MEDICAL HISTORY Diagnosis Date DEE (obstructive sleep apnea) 01/30/2009 PSG and titration done @ Dr Curtis office - AHI 74 - retitration done 2012 @ [facility] DEE on CPAP 04/2016 AutoPAP 8-20 DME [facility] PCOS (polycystic ovarian syndrome) PAST SURGICAL HISTORY Procedure Laterality Date APPENDECTOMY 2012 SECTION HX 01/14/2006 KIDNEY STONE SURGERY HX ALLERGIES Nickel MEDICATIONS levothyroxine (SYNTHROID) 150 mcg tablet Take 1 tablet by mouth once daily. CPAP/BIPAP/OTHER Supplies: Settings 8 - 20 cm H2O, suitable mask per pt preference, chin strap, head gear, humidity, tubing, lifetime supplies. G47.33 DEE CPAP Supplies: AutoPAP 8-20 cmH2O, suitable mask, humidity, heated tubing (STEFAN), filters. Lifetime supplies. Dx: G47.33 cholecalciferol, vitamin D3, (VITAMIN D3 ORAL) Take 5,000 Units by mouth once daily. thyroid,pork (ARMOUR THYROID ORAL) Take 30 mg by mouth once daily. Unsure of dose (Patient not taking: Reported on 10/20/2024) FAMILY HISTORY Problem Relation Age of Onset Heart Mother Heart Father Diabetes Father Macular Degen Sister other (pcos) Sister Social History Tobacco Use Smoking status: Never Smokeless tobacco: Never Vaping Use Vaping status: Never Used Substance Use Topics Alcohol use: Never Drug use: Never Review of Systems Constitutional: Negative for chills, fatigue and fever. HENT: Positive for rhinorrhea and sore throat. Negative for ear discharge, ear pain, sinus pressure and sinus pain. Eyes: Negative for discharge and redness. Respiratory: Positive for cough. Negative for shortness of breath and wheezing. Cardiovascular: Negative for chest pain. Skin: Negative for rash. Objective BP 130/78 Pulse 80 Temp 36.4 C (97.6 F) Resp 18 Wt 127.9 kg (281 lb 15.5 oz) LMP 03/21/2024 (Within Days) SpO2 98% BMI 42.87 kg/m Physical Exam Constitutional: General: She is not in acute distress. Appearance: She is not toxic-appearing or diaphoretic. HENT: Head: Normocephalic and atraumatic. Right Ear: Hearing, tympanic membrane, ear canal and external ear normal. Left Ear: Hearing, tympanic membrane, ear canal and external ear normal. Nose: Nose normal. Mouth/Throat: Pharynx: Uvula midline. Eyes: General: Lids are normal. No scleral icterus. Right eye: No discharge. Left eye: No discharge. Conjunctiva/sclera: Conjunctivae normal. Pupils: Pupils are equal, round, and reactive to light. Neck: Trachea: Trachea normal. Cardiovascular: Rate and Rhythm: Normal rate and regular rhythm. Heart sounds: Normal heart sounds. Pulmonary: Effort: Pulmonary effort is normal. Breath sounds: Examination of the right-lower field reveals rhonchi. Rhonchi present. No decreased breath sounds, wheezing or rales. Musculoskeletal: Cervical back: Normal range of motion and neck supple. Lymphadenopathy: Cervical: No cervical adenopathy. Skin: Findings: No rash. Neurological: Mental Status: She is alert and oriented to person, place, and time. {ASSESSMENT/PLAN: 1. Lower resp. tract infection - ICD9: 519.8, ICD10: J22 No xray at time of exam Exam concerns for pneumonia Treat with doxy -If you experience chest pain/shortness of breath go to ER F/u with pcp if s/s persist. - DOXYCYCLINE MONOHYDRATE 100 MG TABLET - BENZONATATE 100 MG CAPSULE Leslye Lucia APRN.CNP History and Record Review External record(s) reviewed: no prior records. Additional Tests or Interventions The following testing was considered but ultimately not selected after discussion with patient/family: xray, not available. Disposition The patient was discharged. 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 [facility]01-27-2025 Miscellaneous Notes* Telephone Encounter - [facility] - 05/15/2024 3:07 PM EST Faxed CPAP Rx and e-signed office note to [facility] at [phone]. documented in this encounterUniversity [facility]als [facility]01-[facility]25 Instructions* Patient Instructions* Tamanna Pyle APRN.CNP - 05/15/2024 9:38 AM EST Magnesium can help with sleep, relaxation, headaches, mood, and RLS and can keep stools regular. Ifyou have regular bowel movements or constipation, try Mg Citrate (best absorbed), Mg Oxide (best for constipation) or Mg Malate. If you are diarrhea prone, try Mg Glycinate or Mg Taurate. Calm, Pure Encapsulation, Frederic research are reliable brands. Dose 250-300 mg and up to 900-1000mg. Would not go beyond 1200 mg. With any supplements or medications, if you develop any rashes, swelling, difficulty breathing or any other concerning symptom please seek immediate medical attention. Sleep Hygiene and Good Sleep Habits Establish a regular routine that includes going to bed and getting up at the same time every day, even on weekends. Maintaining a consistent sleep-wake cycle is the guerrero to better health overall. Get an adequate amount of sleep every night. Determine the amount of sleep you need by keeping track of how long you sleep without using an alarm clock for a week. Maintain this personal sleep requirement. Go to bed when you are sleepy. If you have difficulty falling asleep or wake up shortly after goingto sleep, leave the bedroom and read quietly or do some other relaxing activity. Avoid bright lights as this can cue your wake cycle. Develop sleep rituals before going to bed. Do the same things in the same order before going to bedto cue your body to slow down and relax. Avoid stress and worries at bedtime. Address tomorrow's activities, concerns, or distractions earlier in the day. Certain activities, such as listening to soft music, reading, or taking a warm bath, can help you wind down. Use your bed for sleeping and sex only. Often, doing other activities in bed like watching TV, paying bills, or working only serve to initiate worries and concerns. Let your mind associate the bed with sleeping, relaxing, and pleasure. Avoid heavy meals late in the evening; similarly, avoid going to bed hungry. A light snack, especially dairy foods, can help you sleep. Reduce your intake of caffeine and nicotine 4-6 hours before going to sleep. Stimulants interfere with your ability to fall asleep and progress into deep sleep. 200mg caffeine (a large Starbucks coffee) taken at 8 AM will impair the sleep architecture that night. Avoid alcohol 4-6 hours before bedtime. As a depressant that slows brain activity, alcohol may initially make you tired, but you will end up having fragmented sleep. In addition, being tired intensifies the effects of alcohol. Alcohol also aggravates snoring and sleep apnea particularly in men. Exercise regularly. Regular exercise, even for 20 minutes, 3 times a week, promotes deep sleep. Don't nap for more than 30 minutes or after 3 PM. Avoiding naps all together will ensure that you are tired at night. Longer naps disrupt the body's ability to stay asleep. Maintain a dark, quiet room to sleep in at a temperature with which you are comfortable. Use sleeping aids conservatively, and avoid using them for more than one or two nights per month. Avoid sleeping pills altogether if you have obstructive sleep apnea because it can be a deadly combination. documented in this encounterUniversity [facility] History of Present illness Narrative* Tamanna Pyle APRN.CNP - 05/15/2024 9:00 AM EST Images from the original note were not included. [facility] Follow-up/Established patient visit Date of last visit: 03/15/23 Impression: G47.33 DEE (obstructive sleep apnea) 47 yo female who presents for annual follow up for DEE on CPAP with use and benefits noted. She does experience mask leak when on her side and may be interested in a different option. She also experiences her mouth opening as of recent without an identifiable cause. Discussed adding a chin strap and nasal spray now that mouth is opening in her sleep. Flonase during times of congestion and reviewed how to use if needed. Reviewed sleep hygiene and good sleep practices to follow (see AVS). Plan: - Continue Auto CPAP at 8-20 cmH2O. - Chin strap - Try Airfit P30i - Remember to clean your mask and equipment regularly, as directed. - You should be eligible for new supplies approximately every 3-6 months, depending on your insurance coverage. Contact your [employer] company for new supplies as needed. - Add magnesium PRN - see AVS Follow up in 1 year(s). Tmaanna Pyle APRN.CNP HPI: 48 yo female here for follow up for DEE on PAP therapy with nightly use and benefits noted. She does endorse some sleep behaviors that can be modified to improve sleep performance overall. SLEEP APNEA Sleep apnea type : DEE, Most Recent Apnea-Hypopnea Index (AHI): 74 Treatment : PAP therapy DME: [facility] P[facility] History: Current PAP settin-20 cm H2O. Difficulties with AutoPAP: None Reviewed objective PAP compliance data: 04/13/24 to 05/12/24 Compliance download: 80% >=4 hours Average use: 5 hours 16 minutes 90/95th percentile pressure: 12.1 Leaks 1.1, residual AHI 0.2 Mask type: nasal pillow interface Mask issues: None Uses chin strap: No Uses ramp function: Yes Uses humidity: Yes There is a perceived benefit by the patient SLEEP-WAKE SCHEDULE Bedtime: 7-9 PM while watching TV Wakes about midnight and goes to her bed Will fall back to sleep within minutes or up to an hour Activities before bed: watching TV in the living room Wake time: 5 AM, with an alarm. Average total sleep time (in a 24 hour period): up to ~ 9 hours. Sleep behaviors: None SLEEP FUNCTIONAL OUTCOME MEASURES: reviewed and uploaded. PAST MEDICAL HISTORY Diagnosis Date DEE (obstructive sleep apnea) 01/30/2009 PSG and titration done @ Dr Curtis office - AHI 74 - retitration done 2012 @ [facility] DEE on CPAP 04/2016 AutoPAP 8-20 DME [facility] PCOS (polycystic ovarian syndrome) PSH, SH: Reviewed REVIEW OF SYSTEMS SLEEP RELATED ROS GENERAL: See HPI HEENT: negative nasal congestion RESPIRATORY: negative dyspnea CARDIOVASCULAR: negative chest pain : negative nocturia SKIN: negative mask irritation PSYCH: negative depression and suicidal thoughts ENDOCRINE: positive thyroid problems NEURO: negative cognitive changes All other systems reviewed and are negative. ALLERGIES Allergen Reactions Nickel Unknown CURRENT MEDICATIONS: CPAP Supplies: AutoPAP 8-20 cmH2O, suitable mask, humidity, heated tubing (STEFAN), filters. Lifetime supplies. Dx: G47.33 cholecalciferol, vitamin D3, (VITAMIN D3 ORAL) Take 5,000 Units by mouth once daily. thyroid,pork (ARMOUR THYROID ORAL) Take 30 mg by mouth once daily. Unsure of dose CPAP/BIPAP/OTHER Supplies: Settings 8 - 20 cm H2O, suitable mask per pt preference, chin strap, head gear, humidity, tubing, lifetime supplies. G47.33 DEE Vital signs: BP 143/91 (BP Site: Right Arm, BP Position: Sitting, BP Cuff Size: Large Adult) Pulse 80 Ht 172.7 cm (5' 8) Wt 129.6 kg (285 lb 11.5 oz) LMP 03/21/2024 (Within Days) SpO2 98% BMI 43.44 kg/m PHYSICAL EXAM: General appearance: NAD, attire appropriate per season Mental status: A & O X3 Speech: Clear & Coherent Constitutional: Overweight Skin: W/D/I on exposed skin Neuro: Gait stable, hearing intact to conversation Impression: G47.33 DEE (obstructive sleep apnea) (primary encounter diagnosis) 48 yo female here for follow up for DEE on PAP therapy with nightly use and benefits noted. She does endorse some sleep behaviors that can be modified to improve sleep performance overall. Discussed with patient: the physiology of OSAS, medical conditions associated with OSAS (DM, HTN, CAD, Depression, Stroke, Headache, DE) and treatment options (UPPP, Dental appliances, CPAP). Advised patient toavoid activities that could harm self or others when tired/sleepy, including driving and/or operating heavy machinery. Plan: - Continue Auto CPAP at 8-20 cmH2O. - Remember to clean your mask and equipment regularly, as directed. - You should be eligible for new supplies approximately every 3-6 months, depending on your insurance coverage. Contact your [employer] (DME) company for new supplies as needed. Follow up in 1 year(s). electronically signed by Tamanna Pyle APRN.CNP I spent a total of 24 minutes on the date of the service which included preparing to see the patient, [id number] patient care, completing clinical documentation, obtaining and/or reviewing separately obtained history, performing a medically appropriate examination, counseling and educating the pat ient/family/caregiver, ordering medications, tests, or procedures, and communicating results to thepatient/family/caregiver. documented in this encounterUniversity Hospitals [facility]01-27-2025 NoteHNO ID: [id number] Author: TAMANNA PYLE APRN.CNP Service: ? Author Type: Nurse Practitioner Type: Progress Notes Filed: 05/15/2024 10:31 Note Text: [facility] Follow-up/Established patient visit Date of last visit: 03/15/23 Impression: G47.33 DEE (obstructive sleep apnea) 47 yo female who presents for annual follow up for DEE on CPAP with use and benefits noted. She does experience mask leak when on her side and may be interested in a different option. She also experiences her mouth opening as of recent without an identifiable cause. Discussed adding a chin strap and nasal spray now that mouth is opening in her sleep. Flonase during times of congestion and reviewed how to use if needed. Reviewed sleep hygiene and good sleep practices to follow (see AVS). Plan: - Continue Auto CPAP at 8-20 cmH2O. - Chin strap - Try Airfit P30i - Remember to clean your mask and equipment regularly, as directed. - You should be eligible for new supplies approximately every 3-6 months, depending on your insurance coverage. Contact your D[employer] Medical Equipment (DME) company for new supplies as needed. - Add magnesium PRN - see AVS Follow up in 1 year(s). Tamanna Pyle, CALISTA.CYLINDER SANDER OPERATOR HPI: 48 yo female here for follow up for DEE on PAP therapy with nightly use and benefits noted. She does endorse some sleep behaviors that can be modified to improve sleep performance overall. SLEEP APNEA Sleep apnea type : DEE, Most Recent Apnea-Hypopnea Index (AHI): 74 Treatment : PAP therapy DME: [facility] History: Current PAP settin-20 cm H2O. Difficulties with AutoPAP: None Reviewed objective PAP compliance data: 04/13/24 to 05/12/24 Compliance download: 80% >=4 hours Average use: 5 hours 16 minutes 90/95th percentile pressure: 12.1 Leaks 1.1, residual AHI 0.2 Mask type: nasal pillow interface Mask issues: None Uses chin strap: No Uses ramp function: Yes Uses humidity: Yes There is a perceived benefit by the patient SLEEP-WAKE SCHEDULE Bedtime: 7-9 PM while watching TV Wakes about midnight and goes to her bed Will fall back to sleep within minutes or up to an hour Activities before bed: watching TV in the living room Wake time: 5 AM, with an alarm. Average total sleep time (in a 24 hour period): up to ~ 9 hours. Sleep behaviors: None SLEEP FUNCTIONAL OUTCOME MEASURES: reviewed and uploaded. PAST MEDICAL HISTORY Diagnosis Date DEE (obstructive sleep apnea) 01/30/2009 PSG and titration done @ Dr Curtis office - AHI 74 - retitration done 2012 @ [facility] DEE on CPAP 04/2016 AutoPAP 8-20 DME [facility] PCOS (polycystic ovarian syndrome) PSH, SH: Reviewed REVIEW OF SYSTEMS SLEEP RELATED ROS GENERAL: See HPI HEENT: negative nasal congestion RESPIRATORY: negative dyspnea CARDIOVASCULAR: negative chest pain : negative nocturia SKIN: negative mask irritation PSYCH: negative depression and suicidal thoughts ENDOCRINE: positive thyroid problems NEURO: negative cognitive changes All other systems reviewed and are negative. ALLERGIES Allergen Reactions Nickel Unknown CURRENT MEDICATIONS: CPAP Supplies: AutoPAP 8-20 cmH2O, suitable mask, humidity, heated tubing (STEFAN), filters. Lifetime supplies. Dx: G47.33 cholecalciferol, vitamin D3, (VITAMIN D3 ORAL) Take 5,000 Units by mouth once daily. thyroid,pork (ARMOUR THYROID ORAL) Take 30 mg by mouth once daily. Unsure of dose CPAP/BIPAP/OTHER Supplies: Settings 8 - 20 cm H2O, suitable mask per pt preference, chin strap, head gear, humidity, tubing, lifetime supplies. G47.33 DEE Vital signs: BP 143/91 (BP Site: Right Arm, BP Position: Sitting, BP Cuff Size: Large Adult) Pulse 80 Ht 172.7 cm (5' 8) Wt 129.6 kg (285 lb 11.5 oz) LMP 03/21/2024 (Within Days) SpO2 98% BMI 43.44 kg/m? PHYSICAL EXAM: General appearance: NAD, attire appropriate per season Mental status: A AND O X3 Speech: Clear AND Coherent Constitutional: Overweight Skin: W/D/I on exposed skin Neuro: Gait stable, hearing intact to conversation Impression: G47.33 DEE (obstructive sleep apnea) (primary encounter diagnosis) 48 yo female here for follow up for DEE on PAP therapy with nightly use and benefits noted. She does endorse some sleep behaviors that can be modified to improve sleep performance overall. Discussed with patient: the physiology of OSAS, medical conditions associated with OSAS (DM, HTN, CAD, Depression, Stroke, Headache, DE) and treatment options (UPPP, Dental appliances, CPAP). Advised patient to avoid activities that could harm self or others when tired/sleepy, including driving and/or operating heavy machinery. Plan: - Continue Auto CPAP at 8-20 cmH2O. - Remember to clean your mask and equipment regularly, as directed. - You should be eligible for new supplies approximately every 3-6 months, depending on your insuranc (more content not included)...[facility]12-16-2024 Telephone encounter Note* Telephone Encounter - Jessica Garcia RN - 04/03/2024 12:49 PM EST Surgery sheet filled out by [facility] for hysteroscopy D&C/Fibroid resection. Placed in surgery schedulers inbox. Jessica Garcia RN [facility]12-16-2024 Telephone encounter Note* Telephone Encounter - Jessica Garcia RN - 04/03/2024 12:49 PM EST ----- Message from Otf Olivares MD sent at 04/03/2024 12:24 PM EST ----- Do we have surgery sheet for her? [facility]12-16-2024 Miscellaneous Notes* Telephone Encounter - Jessica Garcia RN - 04/03/2024 12:49 PM EST Surgery sheet filled out by [facility] for hysteroscopy D&C/Fibroid resection. Placed in surgery schedulers inbox. Jessica Garcia RN * Telephone Encounter - Jessica Garcia RN - 04/03/2024 12:49 PM EST ----- Message from Otf Olivares MD sent at 04/03/2024 12:24 PM EST ----- Do we have surgery sheet for her? documented in this encounterUniversity Hospitals [facility]12-12-2024 Instructions* Patient Instructions* Gee LaguerreLUIS FERNANDO - 03/30/2024 2:03 PM EST YOUR RECOVERY After your biopsy you may have: Vaginal bleeding (less than a normal menstrual period) Mild cramping Do NOT put anything in the vagina for 1 week after your endometrial biopsy. This includes: tampons douches and refraining from having sexual intercourse If you have any discomfort, you may take an over the counter pain medication (motrin, advil, ibuprofen, tylenol, etc). If this does not relieve your discomfort, contact the office. It is okay to wear a sanitary pad until the discharge and spotting stops. RISKS Although problems seldom occur with endometrial biopsies, there can be some complications. You may feel faint during and shortly after the procedure as well as have some bleeding after the procedure.There is also a risk of infection after the procedure. These complications are rare and can be easily treated. You should contact you doctor is you have any of the following: Heavy bleeding (more than your normal period) Bleeding with clots Severe abdominal pain Fever (more than 100.4F) Foul smelling vaginal discharge RESULTS We will have the results of your biopsy in 1-2 weeks. If you do not hear the results of your biopsyafter 2 weeks, please contact the office for the results. If you have any additional questions or concerns please do not hesitate to contact the office. YOUR RECOVERY After your biopsy you may have: Vaginal bleeding (less than a normal menstrual period) Mild cramping Do NOT put anything in the vagina for 1 week after your endometrial biopsy. This includes: tampons douches and refraining from having sexual intercourse If you have any discomfort, you may take an over the counter pain medication (motrin, advil, ibuprofen, tylenol, etc). If this does not relieve your discomfort, contact the office. It is okay to wear a sanitary pad until the discharge and spotting stops. RISKS Although problems seldom occur with endometrial biopsies, there can be some complications. You may feel faint during and shortly after the procedure as well as have some bleeding after the procedure.There is also a risk of infection after the procedure. These complications are rare and can be easily treated. You should contact you doctor is you have any of the following: Heavy bleeding (more than your normal period) Bleeding with clots Severe abdominal pain Fever (more than 100.4F) Foul smelling vaginal discharge RESULTS We will have the results of your biopsy in 1-2 weeks. If you do not hear the results of your biopsyafter 2 weeks, please contact the office for the results. If you have any additional questions or concerns please do not hesitate to contact the office. documented in this encounterUniversity Hospitals [facility]12-12-2024 NoteHNO ID: [id number] Author: OTF OLIVARES MD Service: ? Author Type: Physician Type: Progress Notes Filed: 03/30/2024 14:43 Note Text: Halie is a 48 year old who presents today for an endometrial biopsy for abnormal uterine bleeding. test: negative UNIVERSAL PROTOCOL / SAFETY CHECKLIST Procedure to be Performed: EMB Sign In: A Moment of CARE was completed. Personnel directly involved with the procedure wore the appropriate PPE (Personal Protective Equipment). Patient/Surrogate Stated/Verified: PATIENT VERIFIED(optional for EMERGENT procedures): Patient name, Date of , Relevant allergies, and The intended procedure Time Out Communication: Intended patient and procedure match the source documents. Consent documented and matches the intended procedure. No implant(s) inserted. Sign Out: SIGN OUT (optional for EMERGENT procedures): All specimen containers correctly labeled. All instruments, equipment, possible retained foreign bodies accounted for. Otf Olivares MD PROCEDURE: EXTERNAL GENITALIA: Normal in appearance without lesions VAGINA: Normal in appearance without lesions BIOPSY: Speculum placed into the vagina with excellent visualization of the cervix. Cervix cleaned with betadine. Anterior lip of cervix grasped with single toothed tenaculum. Uterus sounded to 8 cm. Pipelle inserted into the uterus without difficulty and endometrial biopsy obtained. Specimen labeled and sent to pathology. Procedure Summary: Patient tolerated procedure well. ASSESSMENT: abnormal uterine bleeding PLAN: Specimens labeled and sent to Pathology. Post-procedure instructions reviewed and written material given to the patient. would like to consider hysteroscopy [facility] with fibroid resection Otf Olivares [facility]12-12-2024 History of Present illness Narrative* Otf Olivares MD - 03/30/2024 2:00 PM EST Halie is a 48 year old who presents today for an endometrial biopsy for abnormal uterine bleeding. test: negative UNIVERSAL PROTOCOL / SAFETY CHECKLIST Procedure to be Performed: EMB Sign In: A Moment of CARE was completed. Personnel directly involved with the procedure wore the appropriate PPE (Personal Protective Equipment). Patient/Surrogate Stated/Verified: PATIENT VERIFIED(optional for EMERGENT procedures): Patient name, Date of , Relevant allergies, and The intended procedure Time Out Communication: Intended patient and procedure match the source documents. Consent documented and matches the intended procedure. No implant(s) inserted. Sign Out: SIGN OUT (optional for EMERGENT procedures): All specimen containers correctly labeled. All instruments, equipment, possible retained foreign bodies accounted for. Otf Olivares MD PROCEDURE: EXTERNAL GENITALIA: Normal in appearance without lesions VAGINA: Normal in appearance without lesions BIOPSY: Speculum placed into the vagina with excellent visualization of the cervix. Cervix cleaned with betadine. Anterior lip of cervix grasped with single toothed tenaculum. Uterus sounded to 8 cm.Pipelle inserted into the uterus without difficulty and endometrial biopsy obtained. Specimen labeled and sent to pathology. Procedure Summary: Patient tolerated procedure well. ASSESSMENT: abnormal uterine bleeding PLAN: Specimens labeled and sent to Pathology. Post-procedure instructions reviewed and written material given to the patient. would like to consider hysteroscopy D&C with fibroid resection Otf Olivares MD documented in this encounterUniversity Hospitals Conneaut [facility]11-25-2024 NoteHNO ID: [id number] Author: CAROLINE POSADA MD Service: ? 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 Encounter Diagnosis ICD-10-CM 1. Menorrhagia with regular cycle N92.0 Please see report under imaging tab. 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 Encounter Diagnosis ICD-10-CM 1. Menorrhagia with regular cycle N92.0 Please see report under imaging tab. Caroline Posada MD March 13, 2024 3:37 PM documented in this encounterUniversity Hospitals Conneaut [facility] Center11-14-2024 NoteHNO ID: [id number] Author: OTF OLIVARES MD Service: ? Author Type: Physician Type: Progress Notes Filed: 03/02/2024 11:10 Note Text: Halie is a 48 year old who presents for an annual gynecologic exam without complaints. Did have a rash or irritation over her c/s scar under pannus last week. Has been using a natural cream on it and that has improved. Bleeding heavier, some clots, changes protection more frequently but doesn't have to change at night. Some clots. Menses: Menses used to be 3 days now more like a week w/ some very heavy days. . Contraception: vasectomy HPV vaccine: No Last Pap: 12/09/2021 normal HPV: 12/05/2021 negative OB History T1 L0 SAB0 IAB0 Ectopic0 Multiple0 Live Births0 Comment: Her biological child is , she has an 9 yr old adopted son. 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 Comments: Sexual Activity: Yes; Male Contraception: Vasectomy PAST MEDICAL HISTORY Diagnosis Date DEE (obstructive sleep apnea) 01/30/2009 PSG and titration done @ Dr Curtis office - AHI 74 - retitration done 2012 [facility] DEE on CPAP 04/2016 AutoPAP 8-20 DME Rosanna PCOS (polycystic ovarian syndrome) PAST SURGICAL HISTORY Procedure Laterality Date APPENDECTOMY 2012 SECTION HX 01/14/2006 KIDNEY STONE SURGERY HX FAMILY HISTORY Problem Relation Age of Onset Heart Mother Heart Father Diabetes Father Macular Degen Sister other (pcos) Sister SOCIAL HISTORY Social History Tobacco Use Smoking status: Never Smokeless tobacco: Never Vaping Use Vaping status: Never Used Substance Use Topics Alcohol use: Never Drug use: Never REVIEW OF SYSTEMS Abdomen: No abdominal pain, nausea, vomiting, diarrhea, or constipation. No bloating, early satiety, indigestion, or increased flatulence. Bladder: No dysuria, gross hematuria, urinary frequency, urinary urgency, or incontinence. Breast: No breast lumps, nipple d/c, overlying skin changes, redness or skin retraction. Allergies and current medication updated:Yes SENSITIVE EXAM: The sensitive examination was discussed with the Patient or Patient's Authorized Tubing Tester. As applicable, any other physician, advance practice provider, medical student, or other health professional student that will be observing or involved in the sensitive examination for educational or training purposes was discussed with the Patient or Authorized Tubing Tester. The Patient or Authorized Tubing Tester has agreed to proceed with the sensitive examination. (Sensitive examination includes inspection and/or palpation of the breasts, pelvis, prostate and anorectal regions). EXAM: BP 136/88 Ht 5' 5.5 (1.66m) Wt 281 lb (127.5kg) LMP 02/22/2024 BMI 46.03 kg/(m2). GENERAL: pleasant, female in no apparent distress HEENT: Normocephalic, atraumatic, mucus membranes moist, and no lesions NECK: Supple, full range of motion, no adenopathy, and thyroid normal DERMATOLOGY: Normal, without lesions, non-icteric, and non-hirsute BREAST: soft, non-tender, symmetric, no dominant mass, normal nipple-areolar complex, no lymphadenopathy, and no nipple discharge CHEST: Normal inspiratory effort ABDOMEN: soft, non-tender, and no masses PELVIC: external genitalia normal, normal Bartholin's glands, urethra, Quitman's glands, no vulvar lesions, no cervical lesions, good vaginal support, physiologic discharge present, normal appearing perineal body and perianal region BIMANUAL: uterus normal size, shape and consistency, no adnexal masses, and non-tender RECTOVAGINAL: deferred. NEURO: alert and oriented x3,exam grossly non-focal EXTREMITIES: normal ASSESSMENT/PLAN: 1) Health maintenance: Pap/HPV up to date. Mammogram up to date colon cancer screening reviewed, 2) Contraception: vasectomy. Contraceptive options reviewed and information provided. 3) STD screening: Declined STD check. 4) Follow up one year or sooner as needed menorrhagia, h/o hypothyroidism and followed by endocrine so up to date w/ testing for that. EMB and pelvic US ordered. F/u for EMB Otf Olivares, [facility]11-14-2024 History of Present illness Narrative* Otf Olivares MD - 03/02/2024 10:41 AM EST Halie is a 48 year old who presents for an annual gynecologic exam without complaints. Did have a rash or irritation over her c/s scar under pannus last week. Has been using a natural cream on it and that has improved. Bleeding heavier, some clots, changes protection more frequently but doesn't have to change at night. Some clots. Menses: Menses used to be 3 days now more like a week w/ some very heavy days. . Contraception: vasectomy HPV vaccine: No Last Pap: 12/09/2021 normal HPV: 12/05/2021 negative OB History T1 L0 SAB0 IAB0 Ectopic0 Multiple0 Live Births0 Comment: Her biological child is , she has an 9 yr old adopted son. 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 Comments: Sexual Activity: Yes; Male Contraception: Vasectomy PAST MEDICAL HISTORY Diagnosis Date DEE (obstructive sleep apnea) 01/30/2009 PSG and titration done @ Dr Curtis office - AHI 74 - retitration [facility] 2012 @ [facility] DEE on CPAP 04/2016 AutoPAP 8-20 DME Rosanna PCOS (polycystic ovarian syndrome) PAST SURGICAL HISTORY Procedure Laterality Date APPENDECTOMY 2011 SECTION HX 01/14/2006 KIDNEY STONE SURGERY HX FAMILY HISTORY Problem Relation Age of Onset Heart Mother Heart Father Diabetes Father Macular Degen Sister other (pcos) Sister SOCIAL HISTORY Social History Tobacco Use Smoking status: Never Smokeless tobacco: Never Vaping Use Vaping status: Never Used Substance Use Topics Alcohol use: Never Drug use: Never REVIEW OF SYSTEMS Abdomen: No abdominal pain, nausea, vomiting, diarrhea, or constipation. No bloating, early satiety, indigestion, or increased flatulence. Bladder: No dysuria, gross hematuria, urinary frequency, urinary urgency, or incontinence. Breast: No breast lumps, nipple d/c, overlying skin changes, redness or skin retraction. Allergies and current medication updated:Yes SENSITIVE EXAM: The sensitive examination was discussed with the Patient or Patient's Authorized Tubing Tester. As applicable, any other physician, advance practice provider, medical student, or other health professional student that will be observing or involved in the sensitive examination for educational or training purposes was discussed with the Patient or Authorized Tubing Tester. The Patient or Authorized Tubing Tester has agreed to proceed with the sensitive examination. (Sensitive examination includes inspection and/or palpation of the breasts, pelvis, prostate and anorectal regions). EXAM: BP 136/88 Ht 5' 5.5 (1.66m) Wt 281 lb (127.5kg) LMP 02/22/2024 BMI 46.03 kg/(m^2). GENERAL: pleasant, female in no apparent distress HEENT: Normocephalic, atraumatic, mucus membranes moist, and no lesions NECK: Supple, full range of motion, no adenopathy, and thyroid normal DERMATOLOGY: Normal, without lesions, non-icteric, and non-hirsute BREAST: soft, non-tender, symmetric, no dominant mass, normal nipple-areolar complex, no lymphadenopathy, and no nipple discharge CHEST: Normal inspiratory effort ABDOMEN: soft, non-tender, and no masses PELVIC: external genitalia normal, normal Bartholin's glands, urethra, Quitman's glands, no vulvar lesions, no cervical lesions, good vaginal support, physiologic discharge present, normal appearing perineal body and perianal region BIMANUAL: uterus normal size, shape and consistency, no adnexal masses, and non-tender RECTOVAGINAL: deferred. NEURO: alert and oriented x3,exam grossly non-focal EXTREMITIES: normal ASSESSMENT/PLAN: 1) Health maintenance: Pap/HPV up to date. Mammogram up to date colon cancer screening reviewed, 2) Contraception: vasectomy. Contraceptive options reviewed and information provided. 3) STD screening: Declined STD check. 4) Follow up one year or sooner as needed menorrhagia, h/o hypothyroidism and followed by endocrine so up to date w/ testing for that. EMB and pelvic US ordered. F/u for EMB Otf Olivares MD documented in this encounterUniversity Hospitals [facility]11-14-2024 History of Present illness Narrative* Mayur Landrum Mammo Tech - 03/02/2024 9:50 AM EST Radiology Service Progress Note PATIENT NAME: Halie Wilkins DATE OF SERVICE: March 02, 2024 TIME: 10:56 AM PATIENT IDENTITY VERIFICATION COMPLETED USING TWO (2) IDENTIFIERS: Name and Date of confirmedby patient verbally. FALL SCREENING: Has the patient had 2 falls in the last year or 1 fall with injury or currently using an Ambulatory Assistive Device (Walker, Cane, Wheelchair, Crutches, etc.)? No PATIENT GENDER DATA: Female. status: : No status: NO. PATIENT RELEVANT IMPLANT DATA REVIEWED: Not Applicable PATIENT PRESENTS WITH AN IMPLANTABLE OR ATTACHED JOINT FINISHER: No RADIOLOGY DEPARTMENT: Mammography PERIPHERAL IV DATA: Not applicable SIGNED BY: Maggy Sanchez March 02, 2024 10:56 AM documented in this encounterUniversity Hospitals Conneaut [facility] Center11-14-2024 NoteHNO ID: [id number] Author: MAYUR LANDRUM Mammo Tech Service: ? Author Type: I O Psychologist Type: Progress Notes Filed: 03/02/2024 10:56 Note Text: Radiology Service Progress Note PATIENT NAME: Halie Wilkins DATE OF SERVICE: March 02, 2024 TIME: 10:56 AM PATIENT IDENTITY VERIFICATION COMPLETED USING TWO (2) IDENTIFIERS: Name and Date of confirmed by patient verbally. FALL SCREENING: Has the patient had 2 falls in the last year or 1 fall with injury or currently using an Ambulatory Assistive Device (Walker, Cane, Wheelchair, Crutches, etc.)? No PATIENT GENDER DATA: Female. status: : No status: NO. PATIENT RELEVANT IMPLANT DATA REVIEWED: Not Applicable PATIENT PRESENTS WITH AN IMPLANTABLE OR ATTACHED JOINT FINISHER: No RADIOLOGY DEPARTMENT: Mammography PERIPHERAL IV DATA: Not applicable SIGNED BY: Maggy Sanchez March 02, 2024 10:56 [facility]10-21-2024 Telephone encounter Note* Telephone Encounter - Otf Olivares MD - 02/07/2024 3:01 PM EDT ok to put in a telegraph operator slot. Otf Olivares MD [facility] Work Phone: [phone] 900-784810-21-2024 Miscellaneous Notes* Telephone Encounter - Otf Olivares MD - 02/07/2024 3:01 PM EDT ok to put in a telegraph operator slot. Otf Olivares MD documented in this encounterUniversity Hospitals Conneaut [facility] Center05-20-2024 Miscellaneous Notes* Telephone Encounter - Main Teixeira OCCA - 09/06/2023 8:03 AM EDT Received insurance authorization approval for confirmation of medical necessity for CPAP DME and supplies through [facility]. [place] Reference # [id number] documented in this encounterUniversity Hospitals Conneaut [facility] Center05-20-2024 Telephone encounter Note * Telephone Encounter - Main Teixeira OCCA - 09/06/2023 8:03 AM EDT Received insurance authorization approval for confirmation of medical necessity for CPAP DME and supplies through [facility]. [place] Reference # [id number] [facility]02-20-2024 History of Present illness Narrative* Opal Stanley, RT(R) - 06/08/2023 8:30 AM EST Radiology Service Progress Note PATIENT NAME: Halie Wilkins DATE OF SERVICE: June 08, 2023 TIME: 8:22 AM PATIENT IDENTITY VERIFICATION COMPLETED USING TWO (2) IDENTIFIERS: Name and Date of confirmedby patient verbally. FALL SCREENING: Has the patient had 2 falls in the last year or 1 fall with injury or currently using an Ambulatory Assistive Device (Walker, Cane, Wheelchair, Crutches, etc.)? No PATIENT GENDER DATA: Female. status: : No status: NO. PATIENT RELEVANT IMPLANT DATA REVIEWED: Not Applicable PATIENT PRESENTS WITH AN IMPLANTABLE OR ATTACHED JOINT FINISHER: No RADIOLOGY DEPARTMENT: Mammography PERIPHERAL IV DATA: Not applicable SIGNED BY: RT Kadeem(R) June 08, 2023 8:22 AM documented in this encounterUniversity Hospitals Conneaut [facility] Center12-01-2023 Miscellaneous Notes* Telephone Encounter - Main Teixeira OCCA - 03/19/2023 11:32 AM EST Faxed signed CPAP supply order to [facility]. documented in this encounterUniversity Hospitals Conneaut Medical Center11-27-2023 Instructions* Patient Instructions* Tamanna Pyle APRN.CNP - 03/15/2023 1:20 PM EST Sleep Hygiene and Good Sleep Habits Establish a regular routine that includes going to bed and getting up at the same time every day, even on weekends. Maintaining a consistent sleep-wake cycle is the guerrero to better health overall. Get an adequate amount of sleep every night. Determine the amount of sleep you need by keeping track of how long you sleep without using an alarm clock for a week. Maintain this personal sleep requirement. Go to bed when you are sleepy. If you have difficulty falling asleep or wake up shortly after goingto sleep, leave the bedroom and read quietly or do some other relaxing activity. Avoid bright lights as this can cue your wake cycle. Develop sleep rituals before going to bed. Do the same things in the same order before going to bedto cue your body to slow down and relax. Avoid stress and worries at bedtime. Address tomorrow's activities, concerns, or distractions earlier in the day. Certain activities, such as listening to soft music, reading, or taking a warm bath, can help you wind down. Use your bed for sleeping and sex only. Often, doing other activities in bed like watching TV, paying bills, or working only serve to initiate worries and concerns. Let your mind associate the bed with sleeping, relaxing, and pleasure. Avoid heavy meals late in the evening; similarly, avoid going to bed hungry. A light snack, especially dairy foods, can help you sleep. Reduce your intake of caffeine and nicotine 4-6 hours before going to sleep. Stimulants interfere with your ability to fall asleep and progress into deep sleep. 200mg caffeine (a large Starbucks coffee) taken at 8 AM will impair the sleep architecture that night. Avoid alcohol 4-6 hours before bedtime. As a depressant that slows brain activity, alcohol may initially make you tired, but you will end up having fragmented sleep. In addition, being tired intensifies the effects of alcohol. Alcohol also aggravates snoring and sleep apnea particularly in men. Exercise regularly. Regular exercise, even for 20 minutes, 3 times a week, promotes deep sleep. Don't nap for more than 30 minutes or after 3 PM. Avoiding naps all together will ensure that you are tired at night. Longer naps disrupt the body's ability to stay asleep. Maintain a dark, quiet room to sleep in at a temperature with which you are comfortable. Use sleeping aids conservatively, and avoid using them for more than one or two nights per month. Avoid sleeping pills altogether if you have obstructive sleep apnea because it can be a deadly combination. Magnesium can help with sleep, relaxation, headaches, mood, and RLS and can keep stools regular. Ifyou have regular bowel movements or constipation, try Mg Citrate (best absorbed), Mg Oxide (best for constipation) or Mg Malate. If you are diarrhea prone, try Mg Glycinate or Mg Taurate. Calm, Pure Encapsulation, Frederic research are reliable brands. Dose 250-300 mg and up to 900-1000mg. Would not go beyond 1200 mg. With any supplements or medications, if you develop any rashes, swelling, difficulty breathing or any other concerning symptom please seek immediate medical attention. - Any appointments can be scheduled through the central scheduling system for the [facility] at [phone]. - To reach my offices, please call [phone] opt [phone]. - May use Message My Doc through My Chart for questions. - [facility] website: [email or web address] documented in this encounterUniversity Hospitals Conneaut Medical Center11-27-2023 History of Present illness Narrative* Tamanna Pyle APRN.JJ - 03/15/2023 1:00 PM EST [facility] Follow-up/Established patient visit Date of last visit: 05/05/2021 Impression: G47.33 DEE (obstructive sleep apnea) (primary encounter diagnosis) G25.81 RLS (restless legs syndrome) E55.9 Vitamin D deficiency E61.1 Iron deficiency 45 yo female who presents for follow up for DEE on CPAP therapy here for annual visit and in need of a new machine. Her current machine is most likely at 5 years old at this point. It is noisy, the humidifier is broken, and considered broken beyond repair. She is still using nightly with benefits stated. Plan: - Will start Auto CPAP 8-20 cmH2O - I will have a prescription sent to a [employer] company - [employer] who will be calling you in the next 1-2 weeks or so. Please call them directly or us if you do not hear from them in this time frame. - You should be eligible for new supplies approximately every 3-6 months, depending on your insurance coverage. - If your mask doesn't fit well, call the [employer] company before 30 days are up to get a new mask without an additional charge. - Insurance requires regular usage and periodic office follow ups for PAP therapy, to continue to cover supplies. [facility] REQUIREMENTS: - Your insurance requires a [id number] follow up visit within a 31-90 day period after starting CPAP. - Your insurance requires compliance with CPAP, which is at least 4 hours per night for 70% of the time. This must be done over a 30 day period and must occur within the initial 31-90 day period after starting CPAP. - Your insurance also requires at least yearly follow ups to continue to pay for CPAP supplies. - Additional lab work ordered and signed Follow up after starting CPAP Tamanna Pyle APRN.JJ HPI: 47 yo female who presents for annual follow up for DEE on CPAP with use and benefits noted. She does experience mask leak when on her side and may be interested in a different option. She also experiences her mouth opening as of recent without an identifiable cause. SLEEP APNEA Sleep apnea type : DEE, Most Recent Apnea-Hypopnea Index (AHI): 74 Treatment : PAP therapy DME: [facility] PAP History: Current PAP settin-20 cm H2O. Difficulties with AutoPAP: None Reviewed objective PAP compliance data: Compliance download: 100% >=4 hours Average use: 6 hours 11 minutes 90/95th percentile pressure: 9 Leaks 3, residual AHI 0.5 Mask type: nasal mask Mask issues: air leak Uses chin strap: No Uses ramp function: Yes Uses humidity: Yes There is a perceived benefit by the patient SLEEP-WAKE SCHEDULE Bedtime: 9 PM Sometimes falls asleep in the living Latency: no issues Nocturnal wakings: varies Activities before bed: watching TV Wake time: 5 AM, with an alarm. On weekends, she tends to sleeps until 7 AM. Average total sleep time (in a 24 hour period): ? hours. She does not take naps. SLEEP FUNCTIONAL OUTCOME MEASURES: Not completed PAST MEDICAL HISTORY Diagnosis Date DEE (obstructive sleep apnea) 01/30/2009 PSG and titration done @ Dr Curtis office - AHI 74 - retitration done 2012 @ [facility] DEE on CPAP 04/2016 [place]PAP 8-20 [facility] [place] PCOS (polycystic ovarian syndrome) PSH, SH: Reviewed REVIEW OF SYSTEMS SLEEP RELATED ROS GENERAL: See HPI HEENT: positive nasal congestion RESPIRATORY: negative dyspnea CARDIOVASCULAR: negative chest pain SKIN: negative mask irritation PSYCH: negative depression and suicidal thoughts ENDOCRINE: negative thyroid problems NEURO: negative cognitive changes All other systems reviewed and are negative. ALLERGIES Allergen Reactions Nickel Unknown CURRENT MEDICATIONS: meloxicam (MOBIC) 15 mg tablet Take 1 tablet by mouth every afternoon. cholecalciferol, vitamin D3, (VITAMIN D3 ORAL) Take 5,000 Units by mouth once daily. thyroid,pork (ARMOUR THYROID ORAL) Take 30 mg by mouth once daily. Unsure of dose CPAP Supplies: AutoPAP 8-20 cmH2O, suitable mask, humidity, heated tubing (STEFAN), filters. Lifetime supplies. Dx: G47.33 Vital signs: BP 141/84 (BP Site: Left Arm, BP Position: Sitting, BP Cuff Size: Large Adult) Pulse 85 LMP 01/18/2023 (Within Days) SpO2 99% PHYSICAL EXAM: General appearance: NAD, attire appropriate per season Mental status: A & O X3 Speech: Clear & Coherent Constitutional: WNL Skin: W/D/I on exposed skin Musculoskeletal/ Extremities: Non pitting BLE edema, sensation intact Neuro: Gait stable, hearing intact to conversation, neg tremor Impression: G47.33 DEE (obstructive sleep apnea) 47 yo female who presents for annual follow up for DEE on CPAP with use and benefits noted. She does experience mask leak when on her side and may be interested in a different option. She also experiences her mouth opening as of recent without an identifiable cause. Discussed adding a chin strap and nasal spray now that mouth is opening in her sleep. Flonase during times of congestion and reviewed how to use if needed. Reviewed sleep hygiene and good sleep practices to follow (see AVS). Plan: - Continue Auto CPAP at 8-20 cmH2O. - Chin strap - Try Airfit P30i - Remember to clean your mask and equipment regularly, as directed. - You should be eligible for new supplies approximately every 3-6 months, depending on your insurance coverage. Contact your Durable Medical Equipment (DME) company for new supplies as needed. - Add magnesium PRN - see AVS Follow up in 1 year(s). Tamanna Pyle APRN.CYLINDER SANDER OPERATOR I spent a total of 25 minutes on the date of the service which included preparing to see the patient, [id number] patient care, completing clinical documentation, obtaining and/or reviewing separately obtained history, performing a medically appropriate examination, counseling and educating the pat ient/family/caregiver, ordering medications, tests, or procedures, and communicating results to thepatient/family/caregiver. documented in this encounterUniversity Hospitals Conneaut Medical Center10-10-2023 History of Present illness Narrative* Otf Olivares MD - 01/26/2023 8:57 AM EDT Halie is a 47 year old who presents for an annual gynecologic exam without complaints. Menses: cycles every 28 days and 4-5 days of flow. 2 days heavy Contraception: vasectomy HPV vaccine: No Last Pap: 12/09/2021 normal HPV: 12/05/2021 negative History of abnormal pap: No Last mammogram: up to date Sexually active: Yes OB History T1 L0 SAB0 IAB0 Ectopic0 Multiple0 Live Births0 Comment: Her biological child is , she has an 9 yr old adopted son. 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: 01/18/2023 (Within Days), Having periods Age at Menarche: Age at First : Age at Menopause: 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 Comments: Sexual Activity: Yes; Male Contraception: Vasectomy PAST MEDICAL HISTORY Diagnosis Date DEE (obstructive sleep apnea) 01/30/2009 PSG and titration done @ Dr Curtis office - AHI 74 - retitration done 2012 @ [facility] DEE on CPAP 04/2016 AutoPAP 8-20 [facility] PCOS (polycystic ovarian syndrome) PAST SURGICAL HISTORY Procedure Laterality Date APPENDECTOMY 2011 SECTION HX 01/14/2006 KIDNEY STONE SURGERY HX FAMILY HISTORY Problem Relation Age of Onset Heart Mother Heart Father Diabetes Father Macular Degen Sister other (pcos) Sister SOCIAL HISTORY Social History Tobacco Use Smoking status: Never Smokeless tobacco: Never Vaping Use Vaping Use: Never used Substance Use Topics Alcohol use: Never Drug use: Never REVIEW OF SYSTEMS Abdomen: No abdominal pain, nausea, vomiting, diarrhea, or constipation. No bloating, early satiety, indigestion, or increased flatulence. Bladder: No dysuria, gross hematuria, urinary frequency, urinary urgency, or incontinence. Breast: No breast lumps, nipple d/c, overlying skin changes, redness or skin retraction. Allergies and current medication updated:Yes EXAM: BP 134/88 Ht 5' 7.25 (1.71m) Wt 277 lb (125.6kg) LMP 01/18/2023 BMI 43.07 kg/(m^2). GENERAL: pleasant, female in no apparent distress HEENT: Normocephalic, atraumatic, mucus membranes moist, and no lesions NECK: Supple, full range of motion, no adenopathy, and thyroid normal DERMATOLOGY: Normal, without lesions, non-icteric, and non-hirsute BREAST: soft, non-tender, symmetric, no dominant mass, normal nipple-areolar complex, no lymphadenopathy, and no nipple discharge CHEST: Normal inspiratory effort ABDOMEN: soft, non-tender, and no masses PELVIC: external genitalia normal, normal Bartholin's glands, urethra, Quitman's glands, no vulvar lesions, no cervical lesions, good vaginal support, physiologic discharge present, normal appearing perineal body and perianal region BIMANUAL: uterus normal size, shape and consistency, no adnexal masses, and non-tender RECTOVAGINAL: deferred. NEURO: alert and oriented x3,exam grossly non-focal EXTREMITIES: normal ASSESSMENT/PLAN: 1) Health maintenance: Pap/HPV up to date. Mammogram ordered. 2) Contraception: vasectomy. Contraceptive options reviewed and information provided. 3) STD screenin) Follow up one year or soonerDeclined STD check. as needed Otf Olivares MD documented in this encounterUniversity Hospitals Conneaut Medical Center08-08-2023 History of Present illness Narrative* Shy Matta RT(R) - 11/24/2022 10:00 AM EDT Radiology Service Progress Note PATIENT NAME: Halie Wilkins DATE OF SERVICE: November 24, 2022 TIME: 9:56 AM PATIENT IDENTITY VERIFICATION COMPLETED USING TWO (2) IDENTIFIERS: Name and Date of confirmedby patient verbally. FALL SCREENING: Has the patient had 2 falls in the last year or 1 fall with injury or currently using an Ambulatory Assistive Device (Walker, Cane, Wheelchair, Crutches, etc.)? No PATIENT GENDER DATA: Female. status: : No status: NO. PATIENT RELEVANT IMPLANT DATA REVIEWED: Not Applicable RADIOLOGY DEPARTMENT: Mammography PERIPHERAL IV DATA: Not applicable SIGNED BY: RT Dangelo(R) November 24, 2022 9:56 AM documented in this encounterUniversity Hospitals Conneaut Medical Center07-12-2023 Miscellaneous Notes* Telephone Encounter - Patrizia Salvador - 10/28/2022 3:22 PM EDT Received [facility] PAP supply order,given to Tamanna on 11/02/22, fax to [phone] documented in this encounterUniversity Hospitals Conneaut Medical Center06-30-2023 Miscellaneous Notes* Telephone Encounter - Ania Carter LPN - 10/16/2022 10:44 AM EDT Order linked to visit. Ania Carter LPN * Telephone Encounter - Stella Woodall - 10/15/2022 3:10 PM EDT Patient returned call to reschedule annual with provider and Mammography. After review of account patient was to have a RT breast follow up from last Dx mammo in 02/2022. She is currently scheduled for 11/24 for a rt breast 6 mo call back [address] orders. documented in this encounterUniversity Hospitals Conneaut Medical Center06-26-2023 Miscellaneous Notes* Telephone Encounter - London Coelho - 10/12/2022 4:14 PM EDT SLEEP CMN REJECTION NOTICE We received a Certificate of Medical Necessity(CMN) from the [employer] ([facility]) - Downloads Fax(for [place] Orders): [phone] , via fax. Patients are required to be seen in the sleep department at least once a year to have this Certificate ofMedical Necessity(CMN) form completed. The last visit in the sleep department was on 05/05/21, and therefore an appointment is required. Please contact our Scheduling Department at: [phone] or [phone]. Thank you, [facility] documented in this encounterUniversity Hospitals Conneaut Medical Center11-17-2022 NoteHNO ID: [id number] Author: Ximena Mathews, RT(R) Service: ? Author Type: Technologist Type: Progress Notes Filed: 03/05/2022 8:37 AM Note Text: Radiology Service Progress Note PATIENT NAME: Halie Wilkins DATE OF SERVICE: March 05, 2022 TIME: 8:37 AM PATIENT IDENTITY VERIFICATION COMPLETED USING TWO (2) IDENTIFIERS: Name and Date of confirmed by patient verbally. FALL SCREENING: Has the patient had 2 falls in the last year or 1 fall with injury or currently using an Ambulatory Assistive Device (Walker, Cane, Wheelchair, Crutches, etc.)? No PATIENT GENDER DATA: Female. status: : No status: NO. PATIENT RELEVANT IMPLANT DATA REVIEWED: Not Applicable RADIOLOGY DEPARTMENT: Mammography PERIPHERAL IV DATA: Not applicable SIGNED BY: RT Kely(Mine) March 05, 2022 8:37 AMMillinocket Regional Hospital11-17-2022 History of Present illness Narrative* RT Kely(R) - 03/05/2022 7:30 AM EST Radiology Service Progress Note PATIENT NAME: Halie Wilkins DATE OF SERVICE: March 05, 2022 TIME: 8:37 AM PATIENT IDENTITY VERIFICATION COMPLETED USING TWO (2) IDENTIFIERS: Name and Date of confirmedby patient verbally. FALL SCREENING: Has the patient had 2 falls in the last year or 1 fall with injury or currently using an Ambulatory Assistive Device (Walker, Cane, Wheelchair, Crutches, etc.)? No PATIENT GENDER DATA: Female. status: : No status: NO. PATIENT RELEVANT IMPLANT DATA REVIEWED: Not Applicable RADIOLOGY DEPARTMENT: Mammography PERIPHERAL IV DATA: Not applicable SIGNED BY: RT Kely(R) March 05, 2022 8:37 AM documented in this encounterUniversity Hospitals Conneaut Medical Center10-27-2022 Miscellaneous Notes* Telephone Encounter - Vanessa Quintana RN - 02/12/2022 10:02 AM EDT Halie is scheduled for her stereotactic breast biopsy on 03/05/2022. Vanessa Quintana RN * Telephone Encounter - Vanessa Quintana RN - 02/12/2022 8:49 AM EDT Follow-up email sent to Parker Duval regarding appointment. Vanessa Quintana RN * Telephone Encounter - Vanessa Quintana RN - 02/05/2022 4:46 PM EDT Email sent to Parker Duval at [facility] requesting an appointment for a stereotactic breast biopsy. Vanessa Quintana RN documented in this encounterUniversity Hospitals Conneaut Medical Center10-25-2022 History of Present illness Narrative* Babita Salvador MD - 02/10/2022 4:00 PM EDT Evaluation of the right breast for biopsy from a mammogram dated 02/03/2022 was performed. There are scattered calcifications within the right breast predominantly anterior to mid depth. Lateral imaging there does appear to be some layering of the calcifications. I would recommend prior toa biopsy that repeat magnification views are performed of the right breast to confirm definitive need for the stereotactic biopsy. In review of the mammogram dated 01/01/2022, there are some similar-appearing scattered calcifications within the left breast as well. Those appear benign. Impression: Repeat right breast magnification views are recommended before definitive stereotactic core biopsy is performed. This can be performed prior to a scheduled stereotactic biopsy so the patient does nothave to return if indicated. documented in this encounterUniversity Hospitals Conneaut Medical Center10-21-2022 History of Present illness Narrative* Ayad Mann MD - 02/06/2022 9:27 AM EDT HISTORY AND PHYSICAL - BREAST COMPLAINT Halie Wilkins 1975 REFERRING PHYSICIAN: Dr. Otf Olivares CHIEF COMPLAINT: Mammographic microcalcification found on diagnostic imaging of breast (primary encounter diagnosis) HPI: The patient is a 46 year old female with a complaint of an abnormal mammogram. The patient hada mammogram without ultrasound which demonstrated Mammographic microcalcification found on diagnostic imaging of breast (primary encounter diagnosis) : The patient denies a history of breast masses. She does perform a self breast exam routinely. She notes no skin changes. She denies nipple discharge. She notes no axillary masses. She notes no familyhistory of breast problems. She notes no significant breast trauma or breast difficulties in the past. The patient is being seen by me today at the request of Dr. Otf Olivares MD for my opinion and advice regarding Mammographic microcalcification found on diagnostic imaging of breast (primary encounter diagnosis). PAST MEDICAL HISTORY Diagnosis Date DEE (obstructive sleep apnea) 01/30/2009 PSG and titration done @ Dr Curtis office - AHI 74 - retitration done 2012 @ [facility] DEE on CPAP 04/2016 AutoPAP 8-20 [facility] PCOS (polycystic ovarian syndrome) PAST SURGICAL HISTORY Procedure Laterality Date APPENDECTOMY 2011 SECTION HX 01/14/2006 KIDNEY STONE SURGERY HX Current Outpatient Medications Medication Sig Dispense Refill Lactobacillus acidophilus (PROBIOTIC ORAL) Take by mouth. cyanocobalamin, vitamin B-12, (VITAMIN B-12 ORAL) Take by mouth. cholecalciferol, vitamin D3, (VITAMIN D3 ORAL) Take 5,000 Units by mouth once daily. CPAP New Set up (Severe DEE): AutoPAP 8-20 cmH2O, suitable mask, humidity, heated tubing (STEFAN), filters. Lifetime supplies. Dx: G47.33 1 Each 11 thyroid,pork (ARMOUR THYROID ORAL) Take 30 mg by mouth once daily. Unsure of dose No current facility-administered medications for this visit. ALLERGIES: Nickel PERSONAL HISTORY: Social History Tobacco Use Smoking status: Never Smokeless tobacco: Never Vaping Use Vaping Use: Never used Substance Use Topics Alcohol use: Never Drug use: Never FAMILY HISTORY: FAMILY HISTORY Problem Relation Age of Onset Heart Mother Heart Father Diabetes Father Macular Degen Sister other (pcos) Sister REVIEW OF SYMPTOMS: The review of systems data was entered by the nurse and reviewed by me Nursing Notes: Alexus Stapleton RN 02/05/2022 4:15 PM Signed REVIEW OF SYSTEMS: General: The patient NOTES fatigue, denies weight loss, NOTES weight gain, NOTES feeling hot, and denies feelings of cold. Eyes: The patient denies glaucoma, denies eye injury/surgery, wears glasses or contacts. Ear/Nose/Throat: The patient denies allergies, denies hayfever, denies ear infections, and denies bloody noses. Cardiovascular: The patient denies chest pain, denies heart disease, denies high blood pressure,denies cardiac stent, denies prior heart attack, denies irregular heart beat, denies high cholesterol, denies poor circulation, denies heart failure, other cardiac issues, denies claudication, denies cold feet, denies peripheral arterial stent. Respiratory: The patient denies tuberculosis, denies pneumonia, denies frequent cough, denies pulmonary embolism, denies shortness of breath, and denies coughing up blood. Gastrointestinal: The patient denies difficulty swallowing, denies acid reflux, denies ulcers, denies vomiting, denies jaundice/hepatitis, denies gallbladder problems, denies black or tarry stools, denies hemorrhoids, denies bleeding from rectum, denies diverticulitis, denies constipation, denies diarrhea, denies loss of stool control, and denies hernias. Kidney/Bladder: The patient NOTES kidney stones, denies urine infections, and denies bloody urine. Skin: The patient denies a history of skin cancer, denies bleeding/changing moles, and denies a history of skin rash. Neurologic: The patient denies a history of epilepsy/convulsions, denies headaches, denies head/spinal injuries, and denies stroke/TIA. Psychiatric: The patient denies psychiatric medications, denies depression, and denies voices, denies substance abuse. Endocrine: The patient NOTES thyroid disorders, denies diabetes, and denies hormonal problems. Hematologic: The patient denies a history of bruising, denies bleeding, and denies anemia, denies blood clots. Infections: The patient denies a history of measles and mumps, denies rheumatic fever, and denies sexually transmitted diseases. Musculoskeletal: The patient denies back pain/injury, denies back problems, denies sciatica, deniesknee/foot trouble, denies arthritis, or denies gout. When was patient's last Mammogram screening? 2021 Last Colonoscopy: none Alexus Stapleton RN PHYSICAL EXAMINATION: General: The patient is 46 year old female, well nourished, well hydrated in no acute distress. Thepatient is oriented to time, place, and person. VITALS: Blood pressure 122/86, pulse 96, temperature 36.8 C (98.2 F), height 172.7 cm (5' 8), weight 122.2 kg (269 lb 6.4 oz), last menstrual period 11/22/2021, SpO2 99 %. Body mass index is 40.96 kg/m . HEENT: Normal cephalic, ataumatic, pupils are equally round, sclera are anicteric, mucous membranesare moist, oropharynx is clear. Neck has no masses, asymmetry or lymphadenopathy. Thyroid is unremarkable. Respiratory: Clear to auscultation and percussion. Normal respiratory excursion and pattern. Cardiac: Examination is regular rate and rhythm. Abdominal exam: Soft, nontender, with no palpable masses. No hepatosplenomegaly. No palpable hernias. Rectal exam: exam deferred Extremities: no clubbing, cyanosis or edema. No adenopathy. Breast: Visual inspection reveals no retractions, nipple inversion, or skin changes. Palpation of the right breast reveals no dominant or suspicious masses. Palpation of the left breast reveals no dominant or suspicious masses. Axillary exam demonstrates no suspicious masses in either the left or right axilla. There is no nipple discharge expressed from either the left or right breast. LABORATORY VALUES: As Noted RADIOLOGIC STUDIES: As Noted Assessment IMPRESSION: Mammographic microcalcification found on diagnostic imaging of breast (primary encounter diagnosis) PLAN: Having reviewed the mammogram I think it is best that I get her to radiology to get this biopsy done these are very faint calcifications and actually quite diffuse. Diagnoses: (R92.0) Mammographic microcalcification found on diagnostic imaging of breast (primary encounter diagnosis) My findings have been communicated to Dr. Otf Olivares via shared medical record. This note willbe forwarded to Dr. Araseli Medellin MD. Return to Clinic: The patient is instructed to follow-up with me as needed. Ayad Mann III, MD documented in this encounterUniversity Hospitals Conneaut Medical Center10-20-2022 Nurse Note* Alexus Stapleton RN - 02/05/2022 4:10 PM EDT REVIEW OF SYSTEMS: General: The patient NOTES fatigue, denies weight loss, NOTES weight gain, NOTES feeling hot, and denies feelings of cold. Eyes: The patient denies glaucoma, denies eye injury/surgery, wears glasses or contacts. Ear/Nose/Throat: The patient denies allergies, denies hayfever, denies ear infections, and denies bloody noses. Cardiovascular: The patient denies chest pain, denies heart disease, denies high blood pressure,denies cardiac stent, denies prior heart attack, denies irregular heart beat, denies high cholesterol, denies poor circulation, denies heart failure, other cardiac issues, denies claudication, denies cold feet, denies peripheral arterial stent. Respiratory: The patient denies tuberculosis, denies pneumonia, denies frequent cough, denies pulmonary embolism, denies shortness of breath, and denies coughing up blood. Gastrointestinal: The patient denies difficulty swallowing, denies acid reflux, denies ulcers, denies vomiting, denies jaundice/hepatitis, denies gallbladder problems, denies black or tarry stools, denies hemorrhoids, denies bleeding from rectum, denies diverticulitis, denies constipation, denies diarrhea, denies loss of stool control, and denies hernias. Kidney/Bladder: The patient NOTES kidney stones, denies urine infections, and denies bloody urine. Skin: The patient denies a history of skin cancer, denies bleeding/changing moles, and denies a history of skin rash. Neurologic: The patient denies a history of epilepsy/convulsions, denies headaches, denies head/spinal injuries, and denies stroke/TIA. Psychiatric: The patient denies psychiatric medications, denies depression, and denies voices, denies substance abuse. Endocrine: The patient NOTES thyroid disorders, denies diabetes, and denies hormonal problems. Hematologic: The patient denies a history of bruising, denies bleeding, and denies anemia, denies blood clots. Infections: The patient denies a history of measles and mumps, denies rheumatic fever, and denies sexually transmitted diseases. Musculoskeletal: The patient denies back pain/injury, denies back problems, denies sciatica, deniesknee/foot trouble, denies arthritis, or denies gout. When was patient's last Mammogram screening? 2021 Last Colonoscopy: none Alexus Stapleton RN documented in this encounterUniversity Hospitals Conneaut Medical Center10-18-2022 History of Present illness Narrative* Ginny Mcguire Mammo Tech - 02/03/2022 10:00 AM EDT Radiology Service Progress Note PATIENT NAME: Halie Wilkins DATE OF SERVICE: February 03, 2022 TIME: 10:10 AM PATIENT IDENTITY VERIFICATION COMPLETED USING TWO (2) IDENTIFIERS: Name and Date of confirmedby patient verbally. FALL SCREENING: Has the patient had 2 falls in the last year or 1 fall with injury or currently using an Ambulatory Assistive Device (Walker, Cane, Wheelchair, Crutches, etc.)? No PATIENT GENDER DATA: Female. status: : No status: NO. PATIENT RELEVANT IMPLANT DATA REVIEWED: Not Applicable RADIOLOGY DEPARTMENT: Mammography PERIPHERAL IV DATA: Not applicable SIGNED BY: Ginny Mcguire [employer] Data[employer] Tech February 03, 2022 10:10 AM documented in this encounterUniversity Hospitals Conneaut Medical Center09-15-2022 History of Present illness Narrative* RT Dangelo(R) - 01/01/2022 2:10 PM EDT Radiology Service Progress Note PATIENT NAME: Halie Wilkins DATE OF SERVICE: January 01, 2022 TIME: 2:11 PM PATIENT IDENTITY VERIFICATION COMPLETED USING TWO (2) IDENTIFIERS: Name and Date of confirmedby patient verbally. FALL SCREENING: Has the patient had 2 falls in the last year or 1 fall with injury or currently using an Ambulatory Assistive Device (Walker, Cane, Wheelchair, Crutches, etc.)? No PATIENT GENDER DATA: Female. status: : No status: NO. PATIENT RELEVANT IMPLANT DATA REVIEWED: Not Applicable RADIOLOGY DEPARTMENT: Mammography PERIPHERAL IV DATA: Not applicable SIGNED BY: RT Dangelo(R) January 01, 2022 2:11 PM documented in this encounterUniversity Hospitals Conneaut Medical Center08-16-2022 History of Present illness Narrative* Otf Olivares MD - 12/02/2021 9:37 AM EDT Halie is a 46 year old No obstetric history on file. who presents for an annual gynecologic exam with complaints, increased facial hair within the last year. Also patient notes increase pre-menopausal symptoms: hot flashes, night sweats, vaginal dryness and irritability. Weight changes noted - weight gain of 15 lbs. Chronic brain fog and fatigue. Recently saw investigative research specialist - Testerone levels stable . Also B12 deficiency - currently taking a B12 supplement, still present mild paresthesia in fingers and toes. Pt declines interest in HRT. Menses: cycles every days and 3 days of flow. Heavy flow for the first 2 days and some clots. Contraception: vasectomy HPV vaccine: No Last Pap: normal HPV: negative History of abnormal pap: No Last mammogram: never Sexually active: Yes, 1 male partner - Hot flashes: Yes Night sweats: Yes Vaginal dryness: Yes Mood swings: Yes OB History No obstetric history on file. 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 Comments: Sexual Activity: No sexual activity data on record; No partner data on record Contraception: No contraception data on record PAST MEDICAL HISTORY Diagnosis Date DEE (obstructive sleep apnea) 01/30/2009 PSG and titration done @ Dr Curtis office - AHI 74 - retitration done 2012 @ [facility] DEE on CPAP 04/2016 AutoPAP 8-20 D[facility] No past surgical history on file.No family history on file.SOCIAL HISTORY Social History Tobacco Use Smoking status: Never Smokeless tobacco: Never Substance Use Topics Alcohol use: Never REVIEW OF SYSTEMS Abdomen: No abdominal pain, nausea, vomiting, diarrhea, or constipation. No bloating, early satiety, indigestion, or increased flatulence. Mild gluten intolerance - undiagnosed Bladder: No dysuria, gross hematuria, urinary frequency, urinary urgency, or incontinence. Breast: No breast lumps, nipple d/c, overlying skin changes, redness or skin retraction. Allergies and current medication updated:Yes Above per Melia Yadav MS3 STudent not reviewed and agree w/ above EXAM: LMP 10/14/2019 GENERAL: pleasant, female in no apparent distress HEENT: Normocephalic, atraumatic, mucus membranes moist, and no lesions NECK: Supple, full range of motion, no adenopathy, and thyroid normal DERMATOLOGY: Normal, without lesions, non-icteric, and non-hirsute BREAST: soft, non-tender, symmetric, no dominant mass, normal nipple-areolar complex, no lymphadenopathy, and no nipple discharge CHEST: Normal inspiratory effort ABDOMEN: soft, non-tender, and no masses PELVIC: external genitalia normal, normal Bartholin's glands, urethra, Quitman's glands, no vulvar lesions, no cervical lesions, good vaginal support, physiologic discharge present, normal appearing perineal body and perianal region BIMANUAL: uterus normal size, shape and consistency, no adnexal masses, and non-tender RECTOVAGINAL: deferred. NEURO: alert and oriented x3,exam grossly non-focal EXTREMITIES: normal ASSESSMENT/PLAN: 1) Health maintenance: Pap done with HPV. Mammogram ordered. 2) Contraception: vasectomy. Contraceptive options reviewed and information provided. 3) STD screening: Declined STD check. 4) Follow up one year or sooner as needed Can consider wt management program, is interested in healthy lifestyle changes other health screens per PCP d/w her facial hair, had hormone levels tested. could consider trial spironolactone Otf Olivares MD [facility] noteNo assessment information availableWFulton [facility] Work Phone: Evaluation note* Diagnosis Encounter for screening mammogram for breast cancer- Primary Encounter for gynecological examination (general) (routine) without abnormal findings Screening for cervical cancer Screening for malignant neoplasm of the cervix Encounter for screening for human papillomavirus (HPV) Special screening examination for human papillomavirus (HPV) [facility] Diagnosis Encounter for gynecological examination (general) (routine) without abnormal findings Screening for cervical cancer Screening for malignant neoplasm of the cervix Encounter for screening for human papillomavirus (HPV) Special screening examination for human papillomavirus (HPV) [facility]* Diagnosis Abnormal mammogram- Primary Abnormal mammogram, unspecified [facility] Diagnosis Abnormal mammogram Abnormal mammogram, unspecified [facility]* Diagnosis Mammographic microcalcification found on diagnostic imaging of breast- Primary Mammographic microcalcification [facility]* Diagnosis Abnormal mammogram- Primary Abnormal mammogram, unspecified [facility]* Diagnosis Abnormal mammogram- Primary Abnormal mammogram, unspecified [facility]* Diagnosis Encounter for gynecological examination (general) (routine) without abnormal findings- Primary [facility]* Diagnosis Abnormal mammogram Abnormal mammogram, unspecified [facility]* Diagnosis DEE (obstructive sleep apnea)- Primary Obstructive sleep apnea (adult) (pediatric) documented [facility]* Diagnosis Abnormal mammogram Abnormal mammogram, unspecified [facility]* Diagnosis Encounter for screening mammogram for malignant neoplasm of breast- Primary Other screening mammogram [facility]* Diagnosis Encounter for gynecological examination (general) (routine) without abnormal findings- Primary Encounter for screening mammogram for breast cancer Menorrhagia with regular cycle Excessive or frequent menstruation Encounter for screening for malignant neoplasm of colon Special screening for malignant neoplasms, colon [facility]* Diagnosis Encounter for screening mammogram for malignant neoplasm of breast Other screening mammogram [facility]* Diagnosis Menorrhagia with regular cycle Excessive or frequent menstruation [facility]* Diagnosis Menorrhagia with regular cycle- Primary Excessive or frequent menstruation Submucous uterine fibroid Submucous leiomyoma of uterus [facility]* Diagnosis DEE (obstructive sleep apnea)- Primary Obstructive sleep apnea (adult) (pediatric) documented [facility]* Diagnosis Lower resp. tract infection- Primary Other diseases of respiratory system, not elsewhere classified [facility] this [facility]* Diagnosis Onset Date Resolution Status Admit Date Corneal abrasion, left acute Oc tober 2024 7:08am [facility] Work Phone: Progress note Author Nahum Wilder [facility] Note Date/Time February 02, 2025 7 :25am [facility] [address], [address] [place] [address] OFFICE VISIT Date of Service: 02/02/25 MR#: [id number] Acct: [id number] Name: HALIE WILKINS Rep #: [id number] : 1975 Provider: GAETANO Hood Age/Sex: 49/F Location: [facility] Status: Signed Intake Vital Signs 09/04/24 10:48 02/02/25 07:09 Height 5 ft 8.5 in 5 ft 8.5 in Weight: 289 lb 284 lb BMI 43.2 42.5 BP 143/87 H 142/92 H Blood Pressure Location Lt brachial Lt brachial Position Sitting Sitting Pulse 75 88 Pulse Source Monitor Monitor Temp 97.7 F L Temp Source Oral Pulse Oximetry (%) 98 97 Oxygen Delivery Method room air room air Intake Visit Reasons: CONCERN FOR L EYE INFECTION Chief Complaint: eye issue Accompanied by: Self Allergies gluten Allergy (Severe, Verified 02/02/25 07:09) Rash nickel Allergy (Verified 02/02/25 07:09) Unknown Medications ?Medication ?Instructions ?Recorded ?Confirmed ?Type cholecalciferol (vitamin D3) 25 25 mcg PO ONCE 5 02/02/25 History mcg/drop (1,000 unit/drop) oral drops levothyroxine 150 mcg tablet 150 mcg PO QDAY #90 tabs 09/04/24 02/02/25 Rx (Unithroid) polymyxin B sulfate 10,000 1 drp ophthalmic (eye) Q3H 7 days 02/02/25 02/02/25 Rx unit-trimethoprim 1 mg/mL eye drops #10 mL Nurse's Note: Left eye watering, light sensitivity. X 1 day. 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 Thyroid disease Kidney stones Hypertension Migraines IBS (irritable bowel syndrome) Back problem Surgical History (Updated 08/21/24 @ 07:42 by Taye Nix RN) History of appendectomy Family History (Updated 08/21/24 @ 07:45 by Taye Nix RN) Father Diabetes Heart disease Hypertension Mother Heart disease Respiratory disease Grandfather Diabetes Social History (Updated 08/21/24 @ 07:43 by Taye Nix RN) Smoking Status: Never smoker alcohol intake: never substance use type: does not use frequency: 1-2 times per week HPI HPI Chief Complaint: eye issue Details: HALIE WILKINS, is a 49 F who presents to the office today for complaint of left eye irritation. Patient states that she has noticed this irritation and drainage as well as pain since yesterday. Patient does admit to wearing contacts regularly however has not had them in since the pain started. 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 Patient denies headache or pain around the eye. No other associated symptoms oralleviating/aggravating factors. ROS Const Constitutional: No other (6 system ROS completed with pertinent findings in the HPI otherwise normal.) Exam Const General: cooperative and healthy appearing [facility] Head: normocephalic and atraumatic Ears: hearing grossly normal bilaterally Face and sinus: face symmetric Eyes General: appearance normal, both eyes and all related structures Visual Villasenor: normal visual villasenor by confrontation Alignment and Position: alignment normal Periorbital: periorbital findings normal Eyelids: eyelids normal Conjunctivae: conjunctival abnormality left conjunctival injection and discharge Cornea: corneas abnormal on the left fluorescein used and abrasion; no contact lens present, without dendrites present and with no foreign body noted Pupils: PERRL Resp Effort & Inspection: normal respiratory effort Cardio Rate: regular rate Skin General: no rashes or lesions noted Psych Appearance: grossly normal Coding Level of Care Code Off vis,new,level 3 Diagnoses Corneal abrasion, left S05.02XA Assessment and Plan Assessment and Plan (1) Corneal abrasion, left: Status: Acute Plan: Polytrim as prescribed today. 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 Advised of symptomatic management techniques as well as potential red flags and when appropriate to report to the ED. Patient verbalized understanding and agreement with all the above. Medications: New polymyxin B sulf-trimethoprim 10,000 unit- 1 mg/mL while awake; do not exceed 6 doses in 24 hours 1 drp ophthalmic (eye) Q3H 10 mL 0RF 7 days 02/02/25 0727 <Electronically signed by Nahum SALTER> Date _ Nahum SALTER Cosigner Signature: Date (if applicable) CC: ~ [facility] Work Phone: Reason for referral (narrative)* Diagnostic Procedure Only (Routine) - Pending Review Specialty Diagnoses / Procedures Referred By Emery justin Referred To Contact [facility] Diagnoses Encounter for gynecological examination (general) (routine) without abnormal findings Screening for cervical cancer Encounter for screening for human papillomavirus (HPV) Procedures EVIE SCREENING W PABOL SCREENING DIGITAL BREAST TOMOSYNTHESIS BI SCREENING MAMMOGRAPHY BI 2-VIEW BREAST INC Otf Loza MD [address] [place] [address] Br [place] [address] Referral ID Status Reason Start Date Expiration Date Visits Requested Visits Authorized [id number] Pending Review Auto-Generat ed Referral 12/02/2021 01/01/2023 1 1 [facility] for referral (narrative)* Diagnostic Procedure Only (Routine) - Closed Specialty Diagnoses / Procedures Referred By Emery justin Referred To Contact [facility] Diagnoses Encounter for gynecological examination (general) (routine) without abnormal findings Screening for cervical cancer Encounter for screening for human papillomavirus (HPV) Procedures EVIE SCREENING W PABLO SCREENING DIGITAL BREAST TOMOSYNTHESIS BI SCREENING MAMMOGRAPHY BI 2-VIEW BREAST INC Otf Loza MD [address] [place] [address] Br Imaging [address] [place] [address] Referral ID Status Reason Start Date Expiration Date V isits Requested Visits Authorized [id number] Closed Auto-Generate d Referral 12/02/2021 01/01/2023 1 1 [facility] for referral (narrative)* Diagnostic Procedure Only (Routine) - Pending Review Specialty Diagnoses / Procedures Referred By Emery justin Referred To Contact [facility] Diagnoses Abnormal mammogram Procedures US BREAST LTD RT US BREAST UNI REAL TIME WITH IMAGE LIMITED Otf Olivares MD [address] [place] [address] [facility] [address] [place] [address] Referral ID Status Reason Start Date Expiration Date Visits Requested Visits Authorized [id number] Pending Review Auto-Generat ed Referral 01/05/2022 02/04/2023 1 1 * Diagnostic Procedure Only (Routine) - Pending Review Specialty Diagnoses / Procedures Referred By Emery justin Referred To Contact [facility] Diagnoses Abnormal mammogram Procedures EVIE DIAGNOSTIC RT DIAGNOSTIC MAMMOGRAPHY COMPUTER-AIDED DETCJ Otf Wong MD [address] [place] [address] [facility] [address] [place] [address] Referral ID Status Reason Start Date Expiration Date Visits Requested Visits Authorized [id number] Pending Review Auto-Generat ed Referral 01/05/2022 02/04/2023 1 1 [facility] for referral (narrative)* Diagnostic Procedure Only (Routine) - Closed Specialty Diagnoses / Procedures Referred By Emery justin Referred To Contact [facility] Diagnoses Abnormal mammogram Procedures EVIE DIAGNOSTIC RT DIAGNOSTIC MAMMOGRAPHY COMPUTER-AIDED DETCJ Otf Wong MD [address] [place] [address] [facility] [address] [place] [address] Referral ID Status Reason Start Date Expiration Date V isits Requested Visits Authorized [id number] Closed Auto-Generate d Referral 01/05/2022 02/04/2023 1 1 [facility] for referral (narrative)* Diagnostic Procedure Only (Routine) - Pending Review Specialty Diagnoses / Procedures Referred By Contac t Referred To Contact [facility] Diagnoses Mammographic microcalcification found on diagnostic imaging of breast Procedures EVIE STEREO BX BREAST RT BX BREAST W/DEVICE 1ST LESION STEREOTACTIC GUID Ayad Mann MD [address] [place] [address] [facility] Imaging [address] [place] [address] Referral ID Status Reason Start Date Expiration Date Visits Requested Visits Authorized [id number] Pending Review Auto-Generat ed Referral 03/07/2023 1 1 [facility] for referral (narrative)* Diagnostic Procedure Only (Routine) - Authorized Specialty Diagnoses / Procedures [facility] Diagnoses Abnormal mammogram Procedures EVIE DIAGNOSTIC RIGHT DIAGNOSTIC MAMMOGRAPHY COMPUTER-AIDED DETCJ Otf Wong MD [address] [place] [address] [facility] [address] [place] [address] Referral ID Status Reason Start Date Expiration Date Visits Requested Visits Authorized [id number] Authorized Auto-Generat ed Referral 10/15/2022 11/14/2023 1 1 [facility] for referral (narrative)* Diagnostic Procedure Only (Routine) - Pending Review Specialty Diagnoses / Procedures Referred By Contac t Referred To Contact [facility] Diagnoses Abnormal mammogram Procedures EVIE DIAGNOSTIC RIGHT DIAGNOSTIC MAMMOGRAPHY COMPUTER-AIDED DETCJ Otf Wong MD [address] [place] [address] [facility] [address] [place] [address] Referral ID Status Reason Start Date Expiration Date Visits Requested Visits Authorized [id number] Pending Review Auto-Generat ed Referral 11/24/2022 12/24/2023 1 1 [facility] for referral (narrative)* Diagnostic Procedure Only (Routine) - New Request Specialty Diagnoses / Procedures Referred By Contac t Referred To Contact [facility] Diagnoses Encounter for screening mammogram for malignant neoplasm of breast Procedures EVIE SCREENING W PABLO SCREENING DIGITAL BREAST TOMOSYNTHESIS BI SCREENING MAMMOGRAPHY BI 2-VIEW BREAST INC CAD Otf Olivares MD [address] [place] [address] Imaging [address] [place] [address] Referral ID Status Reason Start Date Expiration Date Visits Requested Visits Authorized [id number] New Request Auto-Generat ed Referral 4 03/08/2025 1 1 [facility] for referral (narrative)* Outpatient Procedure (Routine) - Authorized Specialty Diagnoses / Procedures Referred By Emery t Referred To Contact [facility] Diagnoses Menorrhagia with regular cycle Procedures ENDOMETRIAL BIOPSY ENDOMETRIAL BX W/WO ENDOCERVIX BX W/O DILAT SPX Otf Olivares MD [address] [place] [address] [facility] [address] [place] [address] Referral ID Status Reason Start Date Expiration Date Visits Requested Visits Authorized [id number] Authorized Auto-Generat ed Referral 4 03/02/2025 1 1 * Diagnostic Procedure Only (Routine) - Authorized Specialty Diagnoses / Procedures Referred By Tequilaac t Referred To Contact [facility] Diagnoses Menorrhagia with regular cycle Procedures PELVIC US WHI US PELVIC NONOBSTETRIC REAL-TIME IMAGE COMPLETE Otf Olivares MD [address] [place] [address] [facility] [address] [place] [address] Referral ID Status Reason Start Date Expiration Date Visits Requested Visits Authorized [id number] Authorized Auto-Generat ed Referral 4 03/02/2025 1 1 * Diagnostic Procedure Only (Routine) - Authorized Specialty Diagnoses / Procedures Referred By Emery justin Referred To Contact [facility] Diagnoses Encounter for gynecological examination (general) (routine) without abnormal findings Encounter for screening mammogram for breast cancer Procedures EVIE SCREENING W PABLO SCREENING DIGITAL BREAST TOMOSYNTHESIS BI SCREENING MAMMOGRAPHY BI 2-VIEW BREAST INC CAD Otf Olivares MD [address] [place] [address] [facility] Imaging [address] [place] [address] Referral ID Status Reason Start Date Expiration Date Visits Requested Visits Authorized [id number] Authorized Auto-Generat ed Referral 4 04/01/2025 1 1 [facility])No reason for referral information availableBluffton [facility] Services Work Phone: Reason for visit Narrative* Diagnostic Procedure Only (Routine) - Closed Specialty Diagnoses / Procedures Referred By Emery justin Referred To Contact [facility] Diagnoses Encounter for gynecological examination (general) (routine) without abnormal findings Screening for cervical cancer Encounter for screening for human papillomavirus (HPV) Procedures EVIE SCREENING W PABLO SCREENING DIGITAL BREAST TOMOSYNTHESIS BI SCREENING MAMMOGRAPHY BI 2-VIEW BREAST INC Otf Loza MD [address] [place] [address] [facility] Imaging [address] [place] [address] Referral ID Status Reason Start Date Expiration Date V isits Requested Visits Authorized [id number] Closed Auto-Generate d Referral 12/02/2021 01/01/2023 1 1 [facility] for visit Narrative* Diagnostic Procedure Only (Routine) - Closed Specialty Diagnoses / Procedures Referred By Contac t Referred To Contact [facility] Diagnoses Abnormal mammogram Procedures EVIE DIAGNOSTIC RT DIAGNOSTIC MAMMOGRAPHY COMPUTER-AIDED DETCOtf Link MD [address] [place] [address] [facility] Imaging [address] [place] [id number] Referral ID Status Reason Start Date Expiration Date V isits Requested Visits Authorized [id number] Closed Auto-Generate d Referral 01/05/2022 02/04/2023 1 1 [facility] for visit Narrative* Diagnostic Procedure Only (Routine) - Closed Specialty Diagnoses / Procedures Referred By Eemry t Referred To Contact [facility] Diagnoses Abnormal mammogram Procedures EVIE DIAGNOSTIC RIGHT DIAGNOSTIC MAMMOGRAPHY COMPUTER-AIDED DETCJ Otf Wong MD [address] [place] [address] [facility] [address] [place] [address] Referral ID Status Reason Start Date Expiration Date V isits Requested Visits Authorized [id number] Closed Auto-Generate d Referral 10/15/2022 11/14/2023 1 1 [facility] for visit Narrative* Diagnostic Procedure Only (Routine) - Closed Specialty Diagnoses / Procedures Referred By Emery t Referred To Contact [facility] Diagnoses Abnormal mammogram Procedures EVIE DIAGNOSTIC RIGHT DIAGNOSTIC MAMMOGRAPHY COMPUTER-AIDED DETCOtf Link MD [address] [place] [address] [facility] [address] [place] [address] Referral ID Status Reason Start Date Expiration Date V isits Requested Visits Authorized [id number] Closed Auto-Generate d Referral 11/24/2022 12/24/2023 1 1 [facility] for visit Narrative* Diagnostic Procedure Only (Routine) - Closed Specialty Diagnoses / Procedures Referred By Emery t Referred To Contact [facility] Diagnoses Encounter for screening mammogram for malignant neoplasm of breast Procedures EVIE SCREENING W PABLO SCREENING DIGITAL BREAST TOMOSYNTHESIS BI SCREENING MAMMOGRAPHY BI 2-VIEW BREAST INC CAD Otf Olivares MD [address] [place] [address] [facility] [address] [place] [address] Referral ID Status Reason Start Date Expiration Date V isits Requested Visits Authorized [id number] Closed Auto-Generate d Referral 02/07/2024 03/08/2025 1 1 [facility]* Diagnostic Procedure Only (Routine) - Closed Specialty Diagnoses / Procedures Referred By Emery justin Referred To Contact [facility] Diagnoses Menorrhagia with regular cycle Procedures PELVIC US WHI US PELVIC NONOBSTETRIC REAL-TIME IMAGE COMPLETE Otf Olivares MD [address] [place] [address] [facility] [address] [place] [address] Referral ID Status Reason Start Date Expiration Date V isits Requested Visits Authorized [id number] Closed Auto-Generate d Referral 03/02/2024 03/02/2025 1 1 [facility] Summary Purpose Family History Relationship Condition Age at Onset Recorded Date/T eliezer father Diabetes mellitus Unknown Cardiac disease Unknown Hypertension Unknown mother Cardiac disease Unknown Disorder of respiratory system Unknown grandfather Diabetes mellitus Unknown Advance Directives No Advanced Directives Records FoundNo Advanced Directives Records FoundNo Advanced Directives Records Found Chief Complaint and Reason for Visit Chief Complaint Admit Date Thyroid, PCOS September 04, 2024 10:42 am INT LAB ORDERS September 07, 2024 12:17 pm Reason for Visit Admit Date Gluten intolerance September 04, 2024 10:42 am 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 September 04, 2024 10:42am Malaise and fatigue September 04, 2024 10:42 am Chief Complaint RIGHT KNEE XRAY Chief Complaint R KNEE PN/RX HERE Chief Complaint Admit Date Thyroid, PCOS September 04, 2024 10:42 am Chief Complaint Admit Date CONCERN FOR L EYE INFECTION January 7:08am Reason for Visit Admit Date Corneal abrasion, left February 02 7:08am Reason for Referral Specialty Diagnoses / Procedures Referred By Contac t Referred To Contact Diagnoses DEE (obstructive sleep apnea) Procedures PROVIDER ORDERED FOLLOW UP OFFICE/OUTPATIENT NEW HIGH MDM 60 MINUTES Tamanna Pyle APRN.CYLINDER SANDER OPERATOR [address] [place] [address] Referral ID Status Reason Start Date Expiration Date Visits Requested Visits Authorized [id number] Authorized PCP Requested Referral 5 05/14/2025 1 1 Additional Source Comments Goals (unrecognized section and content) Goals may be documented in a n alternate sectionGoals may be documented in an alternate sectionGoals may be documented in an alternate sectionGoals may be documented in an alternate sectionGoals may be documented in an alternate sectionGoals may be documented in an alternate sectionGoals may be documented in an alternate section Source Comments (unrecognize d section and content) In the event this informatio n is protected by the Federal Confidentiality of Alcohol and Drug Abuse Patient Records regulations: The Federal rules restrict any use of the information to criminally investigate or prosecute any alcohol or drug abuse patient.[facility] CenterIn the event this information is protected by the Federal Confidentiality of Alcohol and Drug Abuse Patient Records regulations: The Federal rules restrict any use of the information to criminally investigate or prosecute any alcohol or drug abuse patient.[facility] CenterIn the event this information is protected by the Federal Confidentiality of Alcohol and Drug Abuse Patient Records regulations: The Federal rules restrict any use of the information to criminally investigate or prosecute any alcohol or drug abuse patient.[facility] CenterIn the event this information is protected by the Federal Confidentiality of Alcohol and Drug Abuse Patient Records regulations: The Federal rules restrict any use of the information to criminally investigate or prosecute any alcohol or drug abuse patient.[facility] CenterIn the event this information is protected by the Federal Confidentiality of Alcohol and Drug Abuse Patient Records regulations: The Federal rules restrict any use of the information to criminally investigate or prosecute any alcohol or drug abuse patient.[facility] CenterIn the event this information is protected by the Federal Confidentiality of Alcohol and Drug Abuse Patient Records regulations: The Federal rules restrict any use of the information to criminally investigate or prosecute any alcohol or drug abuse patient.[facility] CenterIn the event this information is protected by the Federal Confidentiality of Alcohol and Drug Abuse Patient Records regulations: The Federal rules restrict any use of the information to criminally investigate or prosecute any alcohol or drug abuse patient.[facility] CenterIn the event this information is protected by the Federal Confidentiality of Alcohol and Drug Abuse Patient Records regulations: The Federal rules restrict any use of the information to criminally investigate or prosecute any alcohol or drug abuse patient.[facility] CenterIn the event this information is protected by the Federal Confidentiality of Alcohol and Drug Abuse Patient Records regulations: The Federal rules restrict any use of the information to criminally investigate or prosecute any alcohol or drug abuse patient.[facility] CenterIn the event this information is protected by the Federal Confidentiality of Alcohol and Drug Abuse Patient Records regulations: The Federal rules restrict any use of the information to criminally investigate or prosecute any alcohol or drug abuse patient.[facility] CenterIn the event this information is protected by the Federal Confidentiality of Alcohol and Drug Abuse Patient Records regulations: The Federal rules restrict any use of the information to criminally investigate or prosecute any alcohol or drug abuse patient.[facility] the event this information is protected by the Federal Confidentiality of Alcohol and Drug Abuse Patient Records regulations: The Federal rules restrict any use of the information to criminally investigate or prosecute any alcohol or drug abuse patient.[facility] CenterIn the event this information is protected by the Federal Confidentiality of Alcohol and Drug Abuse Patient Records regulations: The Federal rules restrict any use of the information to criminally investigate or prosecute any alcohol or drug abuse patient.[facility] CenterIn the event this information is protected by the Federal Confidentiality of Alcohol and Drug Abuse Patient Records regulations: The Federal rules restrict any use of the information to criminally investigate or prosecute any alcohol or drug abuse patient.[facility] the event this information is protected by the Federal Confidentiality of Alcohol and Drug Abuse Patient Records regulations: The Federal rules restrict any use of the information to criminally investigate or prosecute any alcohol or drug abuse patient.[facility] CenterIn the event this information is protected by the Federal Confidentiality of Alcohol and Drug Abuse Patient Records regulations: The Federal rules restrict any use of the information to criminally investigate or prosecute any alcohol or drug abuse patient.[facility] CenterIn the event this information is protected by the Federal Confidentiality of Alcohol and Drug Abuse Patient Records regulations: The Federal rules restrict any use of the information to criminally investigate or prosecute any alcohol or drug abuse patient.[facility] CenterIn the event this information is protected by the Federal Confidentiality of Alcohol and Drug Abuse Patient Records regulations: The Federal rules restrict any use of the information to criminally investigate or prosecute any alcohol or drug abuse patient.[facility] CenterIn the event this information is protected by the Federal Confidentiality of Alcohol and Drug Abuse Patient Records regulations: The Federal rules restrict any use of the information to criminally investigate or prosecute any alcohol or drug abuse patient.[facility] CenterIn the event this information is protected by the Federal Confidentiality of Alcohol and Drug Abuse Patient Records regulations: The Federal rules restrict any use of the information to criminally investigate or prosecute any alcohol or drug abuse patient.[facility] CenterIn the event this information is protected by the Federal Confidentiality of Alcohol and Drug Abuse Patient Records regulations: The Federal rules restrict any use of the information to criminally investigate or prosecute any alcohol or drug abuse patient.[facility] CenterIn the event this information is protected by the Federal Confidentiality of Alcohol and Drug Abuse Patient Records regulations: The Federal rules restrict any use of the information to criminally investigate or prosecute any alcohol or drug abuse patient.[facility] CenterIn the event this information is protected by the Federal Confidentiality of Alcohol and Drug Abuse Patient Records regulations: The Federal rules restrict any use of the information to criminally investigate or prosecute any alcohol or drug abuse patient.[facility] CenterIn the event this information is protected by the Federal Confidentiality of Alcohol and Drug Abuse Patient Records regulations: The Federal rules restrict any use of the information to criminally investigate or prosecute any alcohol or drug abuse patient.[facility] CenterIn the event this information is protected by the Federal Confidentiality of Alcohol and Drug Abuse Patient Records regulations: The Federal rules restrict any use of the information to criminally investigate or prosecute any alcohol or drug abuse patient.[facility] CenterIn the event this information is protected by the Federal Confidentiality of Alcohol and Drug Abuse Patient Records regulations: The Federal rules restrict any use of the information to criminally investigate or prosecute any alcohol or drug abuse patient.[facility] CenterIn the event this information is protected by the Federal Confidentiality of Alcohol and Drug Abuse Patient Records regulations: The Federal rules restrict any use of the information to criminally investigate or prosecute any alcohol or drug abuse patient.[facility] Reason for Visit (unrecogniz ed section and content) Reason Comments Yearly Exam Reason Onset Date Comments Radiology Mammogram 01/05/2022 at [facility] Reason Comments Consult Abnormal mammogram Reason Comments Radio Imaging Study Comments Reason Comments Appointment Stereotactic breast biopsy Reason Comments Rejected CMN Reason Comments Orders Reason Comments Orders [facility] Reason Onset Date Comments Radiology Mammogram 11/24/2022 at [facility] Reason Comments Yearly Exam Reason Comments Follow Up Reason Comments [facility] Reason Comments Insurance Authorization Received insuran ce authorization approval for confirmation of medical necessity for CPAP DME and supplies through [facility]. AnthemReference # [id number] Reason Comments Yearly Exam With Mammogram Reason Comments Endometrial Biopsy Specialty Diagnoses / Procedures Referred By Emery justin Referred To Contact [facility] Diagnoses Menorrhagia with regular cycle Procedures ENDOMETRIAL BIOPSY ENDOMETRIAL BX W/WO ENDOCERVIX BX W/O DILAT SPX Otf Olivares MD [address] [place] [address] [facility] [address] [place] [address] Referral ID Status Reason Start Date Expiration Date V isits Requested Visits Authorized [id number] Closed Auto-Generate d Referral 03/02/2024 03/02/2025 1 1 Reason Comments Follow Up Reason Comments Orders Faxed CPAP Rx and e- signed office note to [facility] at [phone]. Reason Comments Cough Voice coming and goi ng x 1 week Care Teams (unrecognized sec tion and content) Flue Dust Laborer Relationship Specialty Start Date End Date Araseli Medellin MD [address] [facility] [place] [address] PCP - General Family Practice 11/04/15 Flue Dust Laborer Relationship Specialty Start Date End Date Araseli Medellin MD [address] [place] [address], [place] [address] PCP - General Family Practice 11/04/15 Flue Dust Laborer Relationship Specialty Start Date End Date Araseli Medellin MD [address] [place] [address], [place] [address] PCP - General Family Practice 11/04/15 Flue Dust Laborer Relationship Specialty Start Date End Date Araseli Medellin MD [address] [place] [address], [place] [address] PCP - General Family Medicine 11/04/15 Flue Dust Laborer Relationship Specialty Start Date End Date Araseli Medellin MD [address] [place] [address], [place] [address] PCP - General Family Medicine 11/04/15 Flue Dust Laborer Relationship Specialty Start Date End Date Araseli Medellin MD [address] [place] [address], [place] [address] PCP - General Family Medicine 11/04/15 Flue Dust Laborer Relationship Specialty Start Date End Date Araseli Medellin MD [address] [place] [address], [place] [address] PCP - General Family Medicine 11/04/15 Flue Dust Laborer Relationship Specialty Start Date End Date Araseli Medellin MD [address] [place] [address], [place] [address] PCP - General Family Medicine 11/04/15 Team Status: Active Member Role Status Dates Dr. Ender Medellin MD Family Provider Active Dr. Ender Medellin MD Primary Care Provider Activ e Team Status: Inactive Member Role Status Dates Dr. Ender Medellin MD Primary Care Provider Activ e Brook De La Cruz MD Attending Provider, Referring Provide r Active Flue Dust Laborer Relationship Specialty Start Date End Date Araseli Medellin MD [address] [place] [address] PCP - General Family Medicine 11/04/15 Flue Dust Laborer Relationship Specialty Start Date End Date Araseli Medellin MD [address] [place] [address] PCP - General Family Medicine 11/04/15 Flue Dust Laborer Relationship Specialty Start Date End Date Araseli Medellin MD [address] [place] [place] [address] PCP - General Family Medicine 11/04/15 Flue Dust Laborer Relationship Specialty Start Date End Date Araseli Medellin MD [address] [place] [address] PCP - General Family Medicine 11/04/15 Flue Dust Laborer Relationship Specialty Start Date End Date Araseli Medellin MD [address] [place] [address] PCP - General Family Medicine 11/04/15 Flue Dust Laborer Relationship Specialty Start Date End Date Araseli Medellin MD [address] [place] [address] PCP - General Family Medicine 11/04/15 Flue Dust Laborer Relationship Specialty Start Date End Date Araseli Medellin MD [address] [facility] [place] [address] PCP - General Family Medicine 11/04/15 Team Status: Inactive Member Role Status Dates Dr. Ender Medellin MD Primary Care Provider Activ e Dr. Yolie Car MD Attending Provider, Referring Provider Active Flue Dust Laborer Relationship Specialty Start Date End Date Araseli Medellin MD [address] [place] [address] PCP - General Family Medicine 11/04/15 Flue Dust Laborer Relationship Specialty Start Date End Date Araseli Medellin MD [address] [place] [address] PCP - General Family Medicine 11/04/15 Flue Dust Laborer Relationship Specialty Start Date End Date Araseli Medellin MD [address] [place] [address] PCP - General Family Medicine 11/04/15 Flue Dust Laborer Relationship Specialty Start Date End Date Araseli Medellin MD [address] [place] [address] PCP - General Family Medicine 11/04/15 Flue Dust Laborer Relationship Specialty Start Date End Date Araseli Medellni MD [address] [place] [address] PCP - General Family Medicine 11/04/15 Flue Dust Laborer Relationship Specialty Start Date End Date Araseli Medellin MD [address] [place] [address] PCP - General Family Medicine 11/04/15 Flue Dust Laborer Relationship Specialty Start Date End Date Araseli Medellin MD [address] [facility] [address] [place], [place] [address] PCP - General Family Medicine 11/04/15 Flue Dust Laborer Relationship Specialty Start Date End Date Araseli Medellin MD [address] [place], [place] [address] PCP - General Family Medicine 11/04/15 Flue Dust Laborer Relationship Specialty Start Date End Date Araseli Medellin MD [address] [place], [place] [id number] PCP - General Family Medicine 11/04/15 Team Status: Active Member Role Status Dates Dr. Araseli Medellin MD Family Provider Active Dr. Araseli Medellin MD Primary Care Provider Acti ve Team Status: Inactive Member Role Status Dates Dr. Araseli Medellin MD Primary Care Provider Acti ve Start: May 17, 2024 End: May 17, 2024 Dr. Yolie Car MD Attending Provider Active Start: May 17, 2024 End: May 17, 2024 Dr. Yolie Car MD Referring Provider Active Start: May 17, 2024 End: May 17, 2024 Team Status: Inactive Member Role Status Dates Dr. Araseli Medellin MD Primary Care Provider Acti ve Start: September 04, 2024 End: September 04, 2024 Dr. Araseli Medellin MD Referring Provider Active Start: September 04, 2024 End: September 04, 2024 Dr. Gee Lucia MD Attending Provider Active Sta rt: September 04, 2024 End: September 04, 2024 Team Status: Inactive Member Role Status Dates Dr. Araseli Medellin MD Primary Care Provider Acti ve Start: September 07, 2024 End: September 07, 2024 Dr. Gee Luica MD Attending Provider Active Sta rt: September 07, 2024 End: September 07, 2024 Dr. 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 [place] [place] [address] PCP - General Family Medicine 11/04/15 Team Status: Active Member Role/Relationship Status Dates Dr. Araseli Medellin MD Primary care physician Act sharif Team Status: Inactive Member Role/Relationship Status Dates Dr. Araseli Medellin MD Primary care physician Act sharif Start: February 02, 2025 End: February 02, 2025 Dr. Araseli Medellin MD Referring Provider Active Start: February 02, 2025 End: February 02, 2025 GAETANO Beltran Attending physician Active St art: February 02, 2025 End: February 02, 2025 INFORMATION SOURCE (unrecogn ized section and content) DATE CREATED AUTHOR 03/07/2022 [facility] DATE CREATED AUTHOR AUTHOR'S ORGANIZ ATION 10/22/2024 [facility] DATE CREATED AUTHOR AUTHOR'S ORGANIZ ATION 02/03/2025 [facility] FOR RECORDS PERTAINING TO PATIENTS WHO ARE OR HAVE BEEN ENROLLED IN A CHEMICAL DEPENDENCY/SUBSTANCEABUSE PROGRAM, SOME INFORMATION MAY BE OMITTED. This clinical summary was aggregated from multiple sources. Caution should be exercised in using it in the provision of clinical care. This summary normalizes information from multiple sources, and as a consequence, information in this document may materially change the coding, format and clinical context of patient data. In addition, data may be omitted in some cases. CLINICAL DECISIONS SHOULD BE BASED ON THE PRIMARY CLINICAL RECORDS. [employer] provides no warranty or guarantee of the accuracy or completeness of information in this document.
== END | disposition home or self-care (01) ==
LOC: LAB 09:08
PROVIDERS: PCP Family Medicine; Referring Provider Internal Medicine Endocrinology, Diabetes & Metabolism; Visit Provider Internal Medicine Endocrinology, Diabetes & Metabolism
DX: E06.3 Autoimmune thyroiditis (principal)
CPT/HCPCS: 36415; 84443

== ENCOUNTER → 2025-03-13 | Outpatient (CLI) | payer BC, SELFPAY ==
--- NOTE | 2025-03-13 08:51 | BI_ITS ---
EXAM: SCRN MAMM (CAD)W/PABLO BILAT DATE: 03/13/2025 CLINICAL HISTORY: F, Age 49 y/o , SCREENING TECHNIQUE: Procedure Code: [id number] Modality: MG Procedure: SCRN MAMM (CAD)W/PABLO BILAT COMPARISON: Prior exam(s were compared FINDINGS: TISSUE DENSITY: The breasts are heterogeneously dense, which may obscure small masses. Bilateral Breast Mammographic Findings: No significant masses, calcifications or other abnormalities are identified. BI/SCRN MAMM (CAD)W/PABLO BILAT IMPRESSION: No mammographic evidence of malignancy. OVERALL FINAL ASSESSMENT BI-RADS 1: NEGATIVE. RECOMMENDATION: Routine annual follow-up in 1 Year Additional Recommendation none A letter with findings and recommendations will be mailed to the patient. Reading Location: [facility]
== END | disposition home or self-care (01) ==
LOC: OPBI 08:50
PROVIDERS: PCP Family Medicine; Referring Provider Obstetrics & Gynecology; Visit Provider Obstetrics & Gynecology
DX: Z12.31 Encounter for screening mammogram for malignant neoplasm of breast (principal)
CPT/HCPCS: 77063; 77067